=== PATIENT | female | born 1960 | race Caucasian/White ===

== ENCOUNTER 2024-12-26 15:05 | Inpatient (IN) | payer BC ==
[2024-12-26 15:34] LABS: Basophils # (A) 0.04 10*3/uL (0.00-0.10); Basophils % (A) 0.4 %; Eosinophils # (A) 0.03 10*3/uL (0.04-0.35); Eosinophils % (A) 0.3 %; HCT 41.5 % (37.2-46.3); HGB 14.8 g/dL (12.0-15.0); Lymphocytes # (A) 2.19 10*3/uL (0.90-5.00); Lymphocytes % (A) 22.9 %; MCH 33.6 pg (27.0-32.0); MCHC 35.7 g/dL (32.0-37.0); MCV 94.1 fL (80.0-97.0); Mean Platelet Volume 9.6 fL (9.5-12.2); Monocytes % (A) 9.4 %; Neutrophils % (A) 66.8 %; Platelet Count 254 10*3/uL (140-440); RBC 4.41 10*6/uL (4.10-5.20); RDW 15.5 % (11.5-14.5); WBC 9.58 10*3/uL (4.50-10.00)
[2024-12-26 15:44] LABS: Partial Thromboplastin Time 22.5 sec (22.0-30.0); Prothrombin Time 10.6 sec (10.0-12.5)
--- NOTE | 2024-12-26 15:48 | XR ---
EXAMINATION TYPE: XR chest 2V DATE OF EXAM: 12/26/2024 3:32 PM COMPARISON: None. CLINICAL INDICATION: Female, 64 years old with history of Chest Pain: Shortness of breath TECHNIQUE: XR chest 2V views of the chest are obtained. FINDINGS: Scattered senescent parenchymal changes noted. Hyperinflation compatible with COPD. Right hilar mass suspicious for malignancy measuring approximately 5.1 x 4.5 cm. No additional nodule s or masses identified. Appropriate malignancy workup recommended which could be performed as an outp atient. Heart size is stable. Mediastinal structures are stable and grossly unremarkable. No evidence for hilar prominence. Degenerative changes dorsal spine. IMPRESSION: 1. Right hilar mass suspicious for malignancy measuring approximately 5.1 x 4.5 cm. No additional nod ules or masses identified. Appropriate malignancy workup recommended which could be performed as an o utpatient. [facility], , 12/26/2024 3:46 PM
[2024-12-26 15:52] LABS: ALT 22 U/L (4-34); AST 24 U/L (14-36); African American GFR (CKD) >90 (>60 ml/min/1.73 sqM); Albumin 4.6 g/dL (3.5-5.0); Alkaline Phosphatase 84 U/L (38-126); Anion Gap 12 mmol/L; Blood Urea Nitrogen 7 mg/dL (7-17); Calcium 9.6 mg/dL (8.4-10.2); Carbon Dioxide 28 mmol/L (22-30); Chloride 97 mmol/L (98-107); Glucose 96 mg/dL (74-99); Non-African American GFR(CKD) >90 (>60 ml/min/1.73 sqM); Potassium 3.8 mmol/L (3.5-5.1); Sodium 137 mmol/L (137-145); Total Bilirubin 1.5 mg/dL (0.2-1.3); Total Protein 7.5 g/dL (6.3-8.2)
[2024-12-26 16:00] LABS: NT-Pro-B-Type Natriuretic Pept 4860 pg/mL
[2024-12-26 16:08] LABS: Influenza A Not Detected (Not Detectd); Influenza B Not Detected (Not Detectd); RSV Not Detected (Not Detectd)
[2024-12-26] MEDS: DILTIAZEM 125 MG in DEXTROSE 5% IN WATER 100 ML IV SCH (16:59)
[2024-12-26] MEDS: DILTIAZEM 5 MG/ML 5 ML VIAL IVP STA (17:00)
--- NOTE | 2024-12-26 17:08 | CT ---
EXAMINATION TYPE: CT chest angio for PE DATE OF EXAM: 12/26/2024 4:58 PM COMPARISON: None. CLINICAL INDICATION: Female, 64 years old with history of new onset afib, heart failure, lung mass, P t c.o of dizziness with n/v and episodes of QUINCY x 3 months, pt ekg showed A-fib with no hx of, pt rep orts feels like heart is racing, bilat lower leg edema., TECHNIQUE: Axial CT was performed with sagittal and coronal reformats. 3D reconstruction and/or MIP imaging was also performed on a separate workstation. IV CONTRAST: with IV Contrast, patient injected with 100ml mL of Isovue 370. (None if empty) CT DLP: 278.1 mGycm, Automated exposure control for dose reduction was used. FINDINGS: PULMONARY ARTERIES: The pulmonary arteries and their major tributaries are patent. I do not see magen dence for sizable filling defect to suggest pulmonary embolic process. LUNGS: There is a 4.3 x 3.8 x 3.7 cm right hilar mass felt to reflect malignancy until proven otherwi se. 1.5 cm superior segment left lower lobe pulmonary nodule noted as well. Metastatic lesion is not excluded. Mild right lower lobe bronchial wall thickening. Biapical scarring. No consolidative proces s or volume loss. MEDIASTINUM: Thoracic aorta is of normal caliber,however, evaluation is limited given timing of the contrast bolus. If there is concern for thoracic aortic pathology consider CAITLIN. Correlate clinicall y. No evidence for mediastinal mass. No mediastinal lymph nodes greater than 1cm. HEART: Cardiomegaly is demonstrated. No significant coronary artery calcifications. HILAR STRUCTURES: No evidence for mass. No hilar lymph nodes greater than 1 cm. UPPER ABDOMEN: No significant abnormality is seen. IMPRESSION: 1. No evidence for Pulmonary embolism at this time. 2. Right hilar mass felt to reflect malignancy until proven otherwise. Left lower lobe pulmonary lung nodule as discussed. PET/CT and tissue diagnosis recommended. [facility], , 12/26/2024 5:06 PM
--- NOTE | 2024-12-26 18:23 | ED ---
Chest Pain HPI - General Chief Complaint: Chest Pain Stated Complaint: afib Time Seen by Provider: 12/26/24 15:15 Source: patient, EMS Mode of arrival: EMS Limitations: no limitations - History of Present Illness Initial Comments: 64-year-old female who presents to the emergency department reporting cough, shortness of breath and lightheadedness for the past 2 weeks. States that her symptoms have become worse over the past 2 days. Patient feels as if she cannot lay flat to sleep. She has been sitting in a chair. Denies any lower extremity swelling. No history of cardiac disease or heart failure. No history of DVT or PE. No calf pain or swelling. Patient thought that she had a upper respiratory infection however denies any myalgias, fevers, sick contacts. She states her cough has been nonproductive. She went into urgent care today who found that the patient was in A-fib. States that this is a new diagnosis for her. She has no contraindications to heparinization. No history of thyroid disorder. Patient denies any chest pain. No other alleviating, precipitating or modifying factors - Related Data Allergies Allergy/AdvReac Type Severity Reaction Status Date / Time amoxicillin [From Augmentin] Allergy Nausea & Verified 12/26/24 15:18 Vomiting clavulanic acid Allergy Nausea & Verified 12/26/24 15:18 [From Augmentin] Vomiting Review of Systems ROS Statement: Those systems with pertinent positive or pertinent negative responses have been documented in the HPI. ROS Other: All systems not noted in ROS Statement are negative. Past Medical History Past Medical History: Hyperlipidemia History of Any Multi-Drug Resistant Organisms: None Reported Past Surgical History: No Surgical Hx Reported Past Psychological History: No Psychological Hx Reported Smoking Status: Current every day smoker Past Alcohol Use History: Daily Past Drug Use History: None Reported General Exam Limitations: no limitations Course Vital Signs 12/26/24 12/26/24 12/26/24 15:09 15:22 16:59 Temperature 98.5 F Pulse Rate 161 H 173 H Respiratory 22 Rate Blood Pressure 147/117 O2 Sat by Pulse 93 L Oximetry 12/26/24 12/26/24 12/26/24 17:03 17:27 18:03 Temperature Pulse Rate 117 H 118 H 111 H Respiratory 20 20 Rate Blood Pressure 119/66 139/100 O2 Sat by Pulse 93 L Oximetry Chest Pain MDM - MDM Was pt. sent in by a medical professional or institution (MARIKA Correa, CHILD DAYCARE WORKER, urgent care, hospital, or penitentiary...) When possible be specific @ -[No] Did you speak to anyone other than the patient for history (EMS, parent, family, police, friend...)? What history was obtained from this source @ -[No] Did you review nursing and triage notes (agree or disagree)? Why? @ -[I reviewed and agree with nursing and triage notes] Were old charts reviewed (outside hosp., previous admission, EMS record, old EKG, old radiological studies, urgent care reports/EKG's, penitentiary records)? Report findings @ -[No old charts were reviewed] Differential Diagnosis (chest pain, altered mental status, abdominal pain women, abdominal pain men, vaginal bleeding, weakness, fever, dyspnea, syncope, headache, dizziness, GI bleed, back pain, seizure, CVA, palpatations, mental health, musculoskeletal)? @ -[not applicable] EKG interpreted by me (3pts min.). @ -Yes and demonstrates A-fib with a rate of 156. QRS 89. QTc of 367. No acute ST segment elevations or depressions X-rays interpreted by me (1pt min.). @ -[None done] CT interpreted by me (1pt min.). @ -[None done] U/S interpreted by me (1pt. min.). @ -[None done] What testing was considered but not performed or refused? (CT, X-rays, U/S, labs)? Why? @ -[None] What meds were considered but not given or refused? Why? @ -[None] Did you discuss the management of the patient with other professionals (professionals i.e. MARIKA Correa, CHILD DAYCARE WORKER, lab, RT, psych nurse, case management social worker, glass rolling machine operator, teacher, fundraising officer, protective services case worker)? Give summary @ -[No] Was smoking cessation discussed for >3mins.? @ -[No] Was critical care preformed (if so, how long)? @ -[No] Were there social determinants of health that impacted care today? How? (Homelessness, low income, unemployed, alcoholism, drug addiction, transportation, low edu. Level, literacy, decrease access to med. care, skilled nursing, rehab)? @ -[No] Was there de-escalation of care discussed even if they declined (Discuss DNR or withdrawal of care, Hospice)? DNR status @ -[No] What co-morbidities impacted this encounter? (DM, HTN, Smoking, COPD, CAD, Cancer, CVA, ARF, Chemo, Hep., AIDS, mental health diagnosis, sleep apnea, morbid obesity)? @ -[None] Was patient admitted / discharged? Hospital course, mention meds given and route, prescriptions, significant lab abnormalities, going to OR and other pertinent info. @ -[hospital course] Undiagnosed new problem with uncertain prognosis? @ -[No] Drug Therapy requiring intensive monitoring for toxicity (Heparin, Nitro, Insulin, Cardizem)? @ -[No] Were any procedures done? @ -[No] Diagnosis/symptom? @ -[default] Acute, or Chronic, or Acute on Chronic? @ -[default] Uncomplicated (without systemic symptoms) or Complicated (systemic symptoms)? @ -[default] Side effects of treatment? @ -[No] Exacerbation, Progression, or Severe Exacerbation? @ -[No] Poses a threat to life or bodily function? How? (Chest pain, [place], [place], pneumonia, PE, COPD, DKA, ARF, appy, cholecystitis, CVA, Diverticulitis, Homicidal, Suicidal, threat to staff... and all critical care pts) @ -[No] Disposition Clinical Impression: Acute respiratory insufficiency, New onset a-fib, Lung mass, Elevated brain natriuretic peptide (BNP) level Disposition: ADMITTED IP TO THIS [facility] Condition: Serious Is patient prescribed a controlled substance at d/c from ED?: No Referrals: None,Stated [Primary Care Provider] - 1-2 days Time of Disposition: 18:23 Decision to Admit Reason: Admit from EC Decision Date: 12/26/24 Decision Time: 18:23
[2024-12-26] MEDS ORDERED: NALOXONE 0.4 MG/ML 1 ML VIAL IV PRN (18:37)
[2024-12-26] MEDS ORDERED: MONTELUKAST 10 MG TAB PO PRN (20:13)
[2024-12-26] MEDS: NICOTINE 21MG/24HR PATCH TRANSDERM SCH (20:54)
[2024-12-26] MEDS: ATORVASTATIN 20 MG TAB PO SCH (21:53)
[2024-12-26] MEDS: ZOLPIDEM 5 MG TAB PO ONE (22:59)
[2024-12-26] MEDS: ENOXAPARIN 60 MG/0.6 ML SYRINGE SQ SCH (22:59)
[2024-12-27 01:06] LABS: Basophils # (A) 0.04 10*3/uL (0.00-0.10); Basophils % (A) 0.5 %; Eosinophils # (A) 0.03 10*3/uL (0.04-0.35); Eosinophils % (A) 0.4 %; HCT 36.9 % (37.2-46.3); HGB 12.9 g/dL (12.0-15.0); Lymphocytes # (A) 2.14 10*3/uL (0.90-5.00); Lymphocytes % (A) 26.3 %; MCH 33.2 pg (27.0-32.0); MCV 95.1 fL (80.0-97.0); Mean Platelet Volume 9.5 fL (9.5-12.2); Monocytes # (A) 0.71 10*3/uL (0.20-1.00); Monocytes % (A) 8.7 %; Neutrophils % (A) 63.9 %; Platelet Count 228 10*3/uL (140-440); RBC 3.88 10*6/uL (4.10-5.20); RDW 15.7 % (11.5-14.5); WBC 8.14 10*3/uL (4.50-10.00)
[2024-12-27 01:21] LABS: African American GFR (CKD) >90 (>60 ml/min/1.73 sqM); Anion Gap 9 mmol/L; Blood Urea Nitrogen 5 mg/dL (7-17); Calcium 9.1 mg/dL (8.4-10.2); Carbon Dioxide 29 mmol/L (22-30); Chloride 97 mmol/L (98-107); Glucose 99 mg/dL (74-99); Non-African American GFR(CKD) >90 (>60 ml/min/1.73 sqM); Potassium 3.3 mmol/L (3.5-5.1); Sodium 135 mmol/L (137-145)
[2024-12-27] MEDS: METOPROLOL TARTRATE 25 MG TAB PO SCH (07:59)
--- NOTE | 2024-12-27 09:39 | P.CRDCN ---
History of Present Illness History of present illness: HISTORY OF PRESENT ILLNESS: This is a 64-year-old female with a past medical history significant for hypertension. Patient does not follow with a marketing finance manager. We have been asked to see the patient in consultation for atrial fibrillation. Patient examined at the bedside. Patient initially presented to urgent care with a chief complaint of shortness of breath and upper respiratory symptoms. Patient was found to be in A-fib with RVR and was directed to come to the emergency room. Patient was started on IV Cardizem and therapeutic Lovenox. She remains in atrial fibrillation this morning with a heart rate in the 90s. She currently denies any palpitations. Denies chest pain or pressure. She reports mild shortness of breath and a cough. DIAGNOSTICS: - EKG reveals A-fib with RVR. - Chest xray right hilar mass suspicious for malignancy measuring 5.1 x 4.4 cm. No additional nodules or masses identified. -Chest CTA: No evidence for pulmonary embolism. Right hilar mass felt to reflect malignancy until proven otherwise. Left lower lobe pulmonary lung nodule as discussed. - Laboratory data: WBC 8.14. Hemoglobin 12.9. Platelet count 229. Sodium 135. Potassium 3.3. BUN 5. Creatinine 0.56. Troponin negative x 3. proBNP 4860. TSH 1.350. - Current home cardiac medications include simvastatin 40 mg at night. - No previous echocardiogram, stress test, or cardiac catheterization available in EMR for review REVIEW OF SYSTEMS: At the time of my exam: CONSTITUTIONAL: Denies fever or chills. HEENT: Denies blurred vision, vision changes, or eye pain. Denies hemoptysis CARDIOVASCULAR: Denies chest pain. Denies orthopnea. Denies PND. Denies palpitations RESPIRATORY: Reports shortness of breath. GASTROINTESTINAL: Denies abdominal pain. Denies nausea or vomiting. HEMATOLOGIC: Denies bleeding disorders. GENITOURINARY: Denies any blood in urine. SKIN: Denies pruitis. Denies rash. PHYSICAL EXAM: VITAL SIGNS: Reviewed. GENERAL: Well-developed in no acute distress. HEENT: Head is normocephalic. Pupils are equal, round. Sclerae anicteric. Mucous membranes of the mouth are moist. Neck supple. No JVD or thyromegaly LUNGS: Respirations even and unlabored. Lungs essentially clear to auscultation bilaterally. HEART: Irregular rate and rhythm. S1 and S2 heard. ABDOMEN: Soft. Nondistended. Nontender. EXTREMITIES: Normal range of motion. No clubbing or cyanosis. Peripheral pulses intact. No lower extremity edema NEUROLOGIC: Awake and alert. Oriented x 3. ASSESSMENT: Shortness of breath New onset A-fib with RVR New right lung mass Hyperlipidemia Nicotine dependence PLAN: Obtain 2D echo to assess cardiac structure and function TSH checked and within normal limits at 1.350 Begin metoprolol tartrate 25 mg twice a day Discontinue IV Cardizem Continue Lovenox at this time until pulmonary has evaluated patient Continue telemetry monitoring Further recommendations pending patient course Nurse practitioner note has been reviewed by physician. Signing provider agrees with the documented findings, assessment, and plan of care documented by SMOKE TESTER as a scribe. Past Medical History Past Medical History: Hyperlipidemia History of Any Multi-Drug Resistant Organisms: None Reported Past Surgical History: No Surgical Hx Reported Additional Past Surgical History / Comment(s): breast biopsies, colonoscopy Past Anesthesia/Blood Transfusion Reactions: No Reported Reaction Past Psychological History: No Psychological Hx Reported Smoking Status: Current every day smoker Past Alcohol Use History: Daily Past Drug Use History: None Reported Medications and Allergies Home Medications Medication Instructions Recorded Confirmed Type Montelukast [Singulair] 10 mg PO HS PRN 12/26/24 12/26/24 History Simvastatin [Zocor] 40 mg PO HS 12/26/24 12/26/24 History Allergies Allergy/AdvReac Type Severity Reaction Status Date / Time amoxicillin [From Augmentin] Allergy Nausea & Verified 12/26/24 18:54 Vomiting clavulanic acid Allergy Nausea & Verified 12/26/24 18:54 [From Augmentin] Vomiting Physical Exam Vitals: Vital Signs Temp Pulse Pulse Resp BP BP Pulse Ox 12/27/24 04:34 98.2 F 106 H 16 162/82 90 L 12/27/24 02:40 118 H 16 12/26/24 23:00 98.1 F 118 H 16 130/90 93 L 12/26/24 20:58 98.6 F 98 16 154/105 91 L 12/26/24 20:56 118 H 16 12/26/24 18:44 118 H 17 151/99 94 L 12/26/24 18:03 111 H 20 12/26/24 17:27 118 H 20 139/100 93 L 12/26/24 17:03 117 H 119/66 12/26/24 16:59 173 H 12/26/24 15:22 147/117 12/26/24 15:09 98.5 F 161 H 22 93 L Intake and Output 12/26/24 12/27/24 12/27/24 22:59 06:59 14:59 Intake Total 500 102.584 Balance 500 102.584 Intake: Intake, IV Titration 102.584 Amount Diltiazem 125 mg In 102.584 Dextrose 5% in Water 100 ml @ 5 MG/HR 5 mls/hr IV .Q24H [facility] Rx#:[id number] Oral 500 Other: Voiding Method Toilet Toilet # Voids 1 Weight 65.771 kg 64.8 kg Results 12/27/24 00:53 12/27/24 00:23 Cardiac Enzymes 12/26/24 12/26/24 12/26/24 Range/Units 15:24 15:24 20:21 AST 24 (14-36) U/L Troponin I <0.012 0.012 (0.000-0.034) ng/mL 12/27/24 Range/Units 00:23 AST (14-36) U/L Troponin I <0.012 (0.000-0.034) ng/mL Coagulation 12/26/24 Range/Units 15:24 PT 10.6 (10.0-12.5) sec APTT 22.5 (22.0-30.0) sec CBC 12/26/24 12/27/24 Range/Units 15:24 00:53 WBC 9.58 8.14 (4.50-10.00) 10*3/uL RBC 4.41 3.88 L (4.10-5.20) 10*6/uL Hgb 14.8 12.9 (12.0-15.0) g/dL Hct 41.5 36.9 L (37.2-46.3) % Plt Count 254 228 (140-440) 10*3/uL Comprehensive Metabolic Panel 12/26/24 12/27/24 Range/Units 15:24 00:23 Sodium 137 135 L (137-145) mmol/L Potassium 3.8 3.3 L (3.5-5.1) mmol/L Chloride 97 L 97 L (98-107) mmol/L Carbon Dioxide 28 29 (22-30) mmol/L BUN 7 5 L (7-17) mg/dL Creatinine 0.55 0.56 (0.52-1.04) mg/dL Glucose 96 99 (74-99) mg/dL Calcium 9.6 9.1 (8.4-10.2) mg/dL AST 24 (14-36) U/L ALT 22 (4-34) U/L Alkaline Phosphatase 84 (38-126) U/L Total Protein 7.5 (6.3-8.2) g/dL Albumin 4.6 (3.5-5.0) g/dL Current Medications Generic Name Dose Route Start Last Admin Trade Name Freq PRN Reason Stop Dose Admin Atorvastatin Calcium 20 mg 12/26/24 21:00 12/26/24 21:53 Atorvastatin 20 Mg Tab PO 20 mg HS ADDIE Administration Enoxaparin Sodium 60 mg 12/26/24 21:00 12/26/24 22:59 Enoxaparin 60 Mg/0.6 Ml Syringe SQ 60 mg Q12HR ADDIE Administration Diltiazem HCl 125 mg/ Dextrose 125 mls @ 5 mls/hr 12/26/24 16:30 12/27/24 04:46 /Water IV 15 mg/hr .Q24H ADDIE 15 mls/hr Administration Protocol 5 MG/HR Montelukast Sodium 10 mg 12/26/24 20:13 Montelukast 10 Mg Tab PO HS PRN Allergy Symptoms Naloxone HCl 0.2 mg 12/26/24 18:37 Naloxone 0.4 Mg/Ml 1 Ml Vial IV Q2M PRN Opioid Reversal Nicotine 1 patch 12/26/24 20:15 12/26/24 20:54 Nicotine 21mg/24hr Patch TRANSDERM Not Given DAILY ADDIE Intake and Output 12/26/24 12/27/24 12/27/24 22:59 06:59 14:59 Intake Total 500 102.584 Balance 500 102.584 Intake: Intake, IV Titration 102.584 Amount Diltiazem 125 mg In 102.584 Dextrose 5% in Water 100 ml @ 5 MG/HR 5 mls/hr IV .Q24H [facility] Rx#:[id number] Oral 500 Other: Voiding Method Toilet Toilet # Voids 1 Weight 65.771 kg 64.8 kg 12/27/24 00:53 12/27/24 00:23
--- NOTE | 2024-12-27 11:18 | P.HPIM ---
History of Present Illness H&P Date: 12/26/24 Chief Complaint: Chest pressure Pleasant 64-year-old patient, follows in the office with Venu Joseph. Patient was seen in the ER, room E4. Chronic medical condition include COPD, hyperlipidemia. Patient been having chest pressure off and on since October. She is also had episodes of what she calls chest cold. Then yesterday she felt as elephant sitting on the chest. Symptoms with no change with activity. Symptoms are worse with laying down. No radiation. Some shortness of breath. No dizziness no lightheadedness. Decided to come in. Initial troponin in the ER was negative. Patient found in atrial fibrillation with rapid ventricular rate. Put on a Cardizem drip. Review of systems: GEN.: Tired EYES: None HEENT: None NECK: None RESPIRATORY: [As above CARDIOVASCULAR: As above, no edema GASTROINTESTINAL: None GENITOURINARY: None MUSCULOSKELETAL: None LYMPHATICS: None HEMATOLOGICAL: None PSYCHIATRY: None NEUROLOGICAL: None Social history: . Retired from [employer]. Patient smokes about three-quarter pack cigarettes a day for last 40 years. Alcohol socially. Physical examination: VITAL SIGNS: 98.5, 161, 22, 93% room air. 147 x 117 GENERAL: [BMI 23.1, reclining bed awake not in distress. EYES: Pupils equal. Conjunctiva adri l. HEENT: External appearance of nose and ears normal, oral cavity grossly normal. NECK: JVD not raised; masses not palpable. HEART: Heart sounds irregular; no edema. LUNGS: Respiratory rate normal; decreased breath sound. ABDOMEN: Soft, nontender, liver spleen not palpable, no masses palpable. PSYCH: Alert and oriented x3; mood and affect adri l. MUSCULOSKELETAL:No Clubbing/cyanosis;muscles-grossly intact NEUROLOGICAL: Cranial nerves grossly intact; no facial asymmetry, power and sensation grossly intact. LYMPHATICS: No lymph nodes palpable in the axilla and neck INVESTIGATIONS, reviewed in the clinical context: December 26: White count 9.5 globin 14.8 platelets 254 sodium 137 potassium 3.8 creatinine 0.55 Troponin I less than 0.012 proBNP 4860 TSH 1.35 Influenza type A, type B, RSV, SARS-CoV-2: Not detected EKG tracing personally reviewed by me-atrial fibrillation with a rapid ventricular rate. With flutter waves. Rate 156 Chest x-ray film personally reviewed by me-very prominent right hilum with irregular margins CT chest angio for PE: Negative for PE. 4.3 x 3.8 x 3.7 right hilar mass. Similar findings Assessment plan: - New onset atrial fibrillation flutter with a rapid ventricular rate Start an IV Cardizem drip. Subcu Lovenox 60 mg every 12. 2D echo. Cardiology consulted - Right hilar mass 4.3 x 3.68 x 3.7 cm. Pulmonary consulted with review to bronchoscopy for biopsy - COPD in a current smoker DuoNeb. Symbicort. Singulair - Chronic nicotine dependence cigarette smoker Nicotine patch - Hyperlipidemia Zocor - Full code Care was discussed with patient. Consultation to cardiology and pulmonary. Past Medical History Past Medical History: Hyperlipidemia History of Any Multi-Drug Resistant Organisms: None Reported Past Surgical History: No Surgical Hx Reported Past Psychological History: No Psychological Hx Reported Smoking Status: Current every day smoker Past Alcohol Use History: Daily Past Drug Use History: None Reported Medications and Allergies Home Medications Medication Instructions Recorded Confirmed Type Montelukast [Singulair] 10 mg PO HS PRN 12/26/24 12/26/24 History Simvastatin [Zocor] 40 mg PO HS 12/26/24 12/26/24 History Allergies Allergy/AdvReac Type Severity Reaction Status Date / Time amoxicillin [From Augmentin] Allergy Nausea & Verified 12/26/24 18:54 Vomiting clavulanic acid Allergy Nausea & Verified 12/26/24 18:54 [From Augmentin] Vomiting Physical Exam Vitals: Vital Signs Temp Pulse Resp BP Pulse Ox 12/26/24 18:44 118 H 17 151/99 94 L 12/26/24 18:03 111 H 20 12/26/24 17:27 118 H 20 139/100 93 L 12/26/24 17:03 117 H 119/66 12/26/24 16:59 173 H 12/26/24 15:22 147/117 12/26/24 15:09 98.5 F 161 H 22 93 L Intake and Output 12/26/24 12/26/24 12/26/24 06:59 14:59 22:59 Other: Weight 65.771 kg Results CBC & Chem 7: 12/27/24 00:53 12/27/24 00:23 Labs: Abnormal Lab Results - Last 24 Hours (Table) 12/26/24 12/26/24 Range/Units 15:24 15:24 MCH 33.6 H (27.0-32.0) pg Eosinophils # 0.03 L (0.04-0.35) 10*3/uL Chloride 97 L (98-107) mmol/L Total Bilirubin 1.5 H (0.2-1.3) mg/dL
[2024-12-27] MEDS: IPRATROPIUM-ALBUTEROL 3 ML NEB INHALATION SCH (11:46)
[2024-12-27] MEDS ORDERED: ALBUTEROL HFA INHALER INHALATION PRN (11:51)
[2024-12-27] MEDS ORDERED: ALBUTEROL NEBULIZED 2.5 MG/3 ML INHALATION PRN (11:54)
--- NOTE | 2024-12-27 13:21 | P.CNPUL ---
History of Present Illness Consult date: 12/27/24 Requesting physician: Elijah Hwang Reason for consult: other (Lung mass) Chief complaint: Shortness of breath History of present illness: This is a 64-year-old female, 22-emht-jnea smoking history, known history of hypertension, tobacco dependence syndrome, patient presented to the hospital ye sterday with mostly 1 day history of increased shortness of breath, and respiratory congestion. Upon her initial evaluation patient was found to be in atrial fibrillation with RVR. She was started on IV Cardizem and Lovenox. Patient remains in atrial fibrillation, she denies any chest pain, denies any palpitations, denies any fever or chills denies any hemoptysis. Considering her pulmonary symptoms, CT angiogram of the chest was done, and it showed a 4.3 x 3.8 x 3.7 right hilar mass highly suspicious for lung cancer. In addition the patient was found to have a 1.5 cm in the superior segment of the left lower lobe. This is felt most likely metastatic in nature. Considering the findings, this consult was initiated. I saw the patient today, and I explained to her and her that the findings are highly suspicious for bronchogenic carcinoma however at this point the main concern is her atrial fibrillation and RVR, needs to be fully addressed, and could consider workup on outpatient basis including a PET scan, eventually the patient will need to have bronchoscopy and biopsy. Review of Systems CONSTITUTIONAL: Denies fever or chills. Denies any weight loss HEENT: Denies blurred vision, vision changes, or eye pain. Denies hemoptysis CARDIOVASCULAR: As noted in HPI RESPIRATORY: As noted in HPI GASTROINTESTINAL: Denies abdominal pain. Denies nausea or vomiting. HEMATOLOGIC: Denies bleeding disorders. GENITOURINARY: Denies any blood in urine. SKIN: Denies pruitis. Denies rash. Psychiatric: Denies any symptoms of active depression Hematologic: Denies any clotting bleeding or bruising Past Medical History Past Medical History: Hyperlipidemia History of Any Multi-Drug Resistant Organisms: None Reported Past Surgical History: No Surgical Hx Reported Additional Past Surgical History / Comment(s): breast biopsies, colonoscopy Past Anesthesia/Blood Transfusion Reactions: No Reported Reaction Past Psychological History: No Psychological Hx Reported Smoking Status: Current every day smoker Past Alcohol Use History: Daily Past Drug Use History: None Reported Medications and Allergies Home Medications Medication Instructions Recorded Confirmed Type Montelukast [Singulair] 10 mg PO HS PRN 12/26/24 12/26/24 History Simvastatin [Zocor] 40 mg PO HS 12/26/24 12/26/24 History Allergies Allergy/AdvReac Type Severity Reaction Status Date / Time amoxicillin [From Augmentin] Allergy Nausea & Verified 12/26/24 18:54 Vomiting clavulanic acid Allergy Nausea & Verified 12/26/24 18:54 [From Augmentin] Vomiting Physical Exam Vitals: Vital Signs Temp Pulse Pulse Resp BP BP Pulse Ox 12/27/24 11:48 71 16 12/27/24 11:15 98.8 F 69 17 109/69 91 L 12/27/24 07:55 98.9 F 97 17 135/74 91 L 12/27/24 04:34 98.2 F 106 H 16 162/82 90 L 12/27/24 02:40 118 H 16 12/26/24 23:00 98.1 F 118 H 16 130/90 93 L 12/26/24 20:58 98.6 F 98 16 154/105 91 L 12/26/24 20:56 118 H 16 12/26/24 18:44 118 H 17 151/99 94 L 12/26/24 18:03 111 H 20 12/26/24 17:27 118 H 20 139/100 93 L 12/26/24 17:03 117 H 119/66 12/26/24 16:59 173 H 12/26/24 15:22 147/117 12/26/24 15:09 98.5 F 161 H 22 93 L Intake and Output 12/26/24 12/27/24 12/27/24 22:59 06:59 14:59 Intake Total 500 102.584 76.75 Balance 500 102.584 76.75 Intake: Intake, IV Titration 102.584 76.75 Amount Diltiazem 125 mg In 102.584 76.75 Dextrose 5% in Water 100 ml @ 5 MG/HR 5 mls/hr IV .Q24H [facility] Rx#:[id number] Oral 500 Other: Voiding Method Toilet Toilet Toilet # Voids 1 1 Weight 65.771 kg 64.8 kg General: Reveals 64-year-old female pleasant in no distress, at bedside Head: Atraumatic normocephalic Skin: Skin is warm and dry and no rashes or lesions are noted. Eye: Pupils are equal, round and reactive to light, extra-ocular movements are intact; there is normal conjunctiva bilaterally. Ears, nose, mouth and throat: There are moist mucous membranes and no oral lesions. Neck: no cervical lymphadenopathy. No masses. Cardiovascular: Irregular irregular rhythm No murmur, rub or gallop is appreciated. Respiratory: Diminished breath sound bilaterally no crackles rhonchi or wheezes Musculoskeletal: Normal range of motion, no deformities Neurological: Alert oriented x 3 no gross focal deficit Psychiatric: Normal mood, affect and no mental status examination Results - Laboratory Findings CBC and BMP: 12/27/24 00:53 12/27/24 00:23 PT/INR, D-dimer PT 10.6 sec (10.0-12.5) 12/26/24 15:24 INR 1.0 (<1.2) 12/26/24 15:24 Abnormal lab findings: Abnormal Labs 12/26/24 12/26/24 12/27/24 15:24 15:24 00:23 RBC Hct MCH 33.6 H Eosinophils # 0.03 L Sodium 135 L Potassium 3.3 L Chloride 97 L 97 L BUN 5 L Total Bilirubin 1.5 H 12/27/24 00:53 RBC 3.88 L Hct 36.9 L MCH 33.2 H Eosinophils # 0.03 L Sodium Potassium Chloride BUN Total Bilirubin - Diagnostic Findings CT scan - chest: image reviewed (As noted in HPI, patient has right hilar mass and left lower lobe nodule both are suspicious for malignancy) Assessment and Plan Assessment: Impression: Atrial fibrillation with RVR, new onset Incidental finding of right hilar mass and left lower lobe nodule highly suspicious for bronchogenic carcinoma Tobacco dependence syndrome Suspect underlying COPD, severity of which is to be determined on outpatient basis Dyslipidemia Recommendation: Continue present supportive care measures Continue treatment for atrial fibrillation including Cardizem and Lovenox Patient needs outpatient follow-up regarding her lung mass Patient will be seen by Dr. Lerner tomorrow on follow-up, Patient will need outpatient PET scan and outpatient PFT Will continue to follow Time with Patient: Greater than 30
--- NOTE | 2024-12-27 15:06 | P.PN ---
Progress Note - Text Progress Note Date: 12/27/24 Chief Complaint: Chest pressure Pleasant 64-year-old patient, follows in the office with Venu Joseph. Patient was seen in the ER, room E4. Chronic medical condition include COPD, hyperlipidemia. Patient been having chest pressure off and on since October. She is also had episodes of what she calls chest cold. Then yesterday she felt as elephant sitting on the chest. Symptoms with no change with activity. Symptoms are worse with laying down. No radiation. Some shortness of breath. No dizziness no lightheadedness. Decided to come in. Initial troponin in the ER was negative. Patient found in atrial fibrillation with rapid ventricular rate. Put on a Cardizem drip. December 27: Patient is off Cardizem drip. On Lopressor 25 mg twice daily. Subcu Lovenox. Pulmonary decide whether inpatient/outpatient biopsy. Discussed with patient . Increase activity. Remains in A-fib. Rate controlled Active Medications Albuterol Sulfate (Albuterol Nebulized 2.5 Mg/3 Ml) 2.5 mg INHALATION RT-QID PRN PRN Reason: Shortness Of Breath Or Wheezing Atorvastatin Calcium (Atorvastatin 20 Mg Tab) 20 mg PO HS [facility] Last Admin: 12/26/24 21:53 Dose: 20 mg Budesonide/Formoterol Fumarate (Symbicort 160-4.5 Mcg Inhaler) 2 puff INHALATION RT-BID [facility] Enoxaparin Sodium (Enoxaparin 60 Mg/0.6 Ml Syringe) 60 mg SQ Q12HR [facility] Last Admin: 12/27/24 07:59 Dose: 60 mg Metoprolol Tartrate (Metoprolol Tartrate 25 Mg Tab) 25 mg PO BID [facility] Last Admin: 12/27/24 07:59 Dose: 25 mg Montelukast Sodium (Montelukast 10 Mg Tab) 10 mg PO HS PRN PRN Reason: Allergy Symptoms Naloxone HCl (Naloxone 0.4 Mg/Ml 1 Ml Vial) 0.2 mg IV Q2M PRN PRN Reason: Opioid Reversal Nicotine (Nicotine 21mg/24hr Patch) 1 patch TRANSDERM DAILY [facility] Last Admin: 12/27/24 07:55 Dose: Not Given Social history: . Retired from [employer]. Patient smokes about three-quarter pack cigarettes a day for last 40 years. Alcohol socially. Physical examination: VITAL SIGNS: 98.8, 69, 17, 109 x 69, 91% room air GENERAL: [BMI 23.1, sitting up, comfortable EYES: Pupils equal. Conjunctiva adri l. HEENT: External appearance of nose and ears normal, oral cavity grossly normal. NECK: JVD not raised; masses not palpable. HEART: Heart sounds irregular; no edema. LUNGS: Respiratory rate normal; decreased breath sound. ABDOMEN: Soft, nontender, liver spleen not palpable, no masses palpable. PSYCH: Alert and oriented x3; mood and affect adri l. INVESTIGATIONS, reviewed in the clinical context: December 27: Hemoglobin 12.9 platelets 228 potassium 3.3 creatinine 0.5 December 26: White count 9.5 globin 14.8 platelets 254 sodium 137 potassium 3.8 creatinine 0.55 Troponin I less than 0.012 proBNP 4860 TSH 1.35 Influenza type A, type B, RSV, SARS-CoV-2: Not detected EKG tracing personally reviewed by me-atrial fibrillation with a rapid ventricular rate. With flutter waves. Rate 156 Chest x-ray film personally reviewed by me-very prominent right hilum with irregular margins CT chest angio for PE: Negative for PE. 4.3 x 3.8 x 3.7 right hilar mass. Similar findings Assessment plan: - New onset atrial fibrillation flutter with a rapid ventricular rate: Now controlled Initially on IV Cardizem drip. Subcu Lovenox 60 mg every 12. Lopressor 25 twice daily. Pending 2D echo - Right hilar mass 4.3 x 3.68 x 3.7 cm. Pulmonary following. Further workup plan per them - COPD in a current smoker DuoNeb. Symbicort. Singulair - Chronic nicotine dependence cigarette smoker Nicotine patch - Hyperlipidemia Zocor - Full code Discussed with patient and Past Medical History Past Medical History: Hyperlipidemia History of Any Multi-Drug Resistant Organisms: None Reported Past Surgical History: No Surgical Hx Reported Past Psychological History: No Psychological Hx Reported Smoking Status: Current every day smoker Past Alcohol Use History: Daily Past Drug Use History: None Reported
[2024-12-27] MEDS: POTASSIUM CHLORIDE ER 20 MEQ TAB.ER PO STA (16:19)
[2024-12-27] MEDS: SYMBICORT 160-4.5 MCG INHALER INHALATION SCH (22:01)
[2024-12-27] MEDS: ONDANSETRON 4 MG/2 ML VIAL IVP PRN (23:40)
[2024-12-27] MEDS: ZOLPIDEM 5 MG TAB PO PRN (23:40)
[2024-12-28] MEDS: METOPROLOL SUCCINATE (ER) 50 MG TAB.ER.24H PO SCH (09:39)
--- NOTE | 2024-12-28 11:44 | CA ---
Transthoracic Echo Report Name: Marsha Marinelli Age: 64 Gender: F : 1960 Exam Date: 12/28/2024 08:40 Exam Location: [facility] Ht (in): 66 Wt (lb): 142 Ordering Physician: Sabrina Mckeon Attending/Referring Phys: [id number], Mike Extension Division Director Janice Ma, XI Procedure CPT: Indications: LV function, new onset A-fib, lung mass, sob Cardiac Hx: Technical Quality: Fair Contrast 1: Definity Total Dose (mL): 2 Contrast 2: Total Dose (mL): MEASUREMENTS (Male / Female) Normal Values 2D ECHO LV Diastolic Diameter PLAX 5.0 cm 4.2 - 5.9 / 3.9 - 5.3 cm LV Systolic Diameter PLAX 4.0 cm IVS Diastolic Thickness 1.1 cm 0.6 - 1.0 / 0.6 - 0.9 cm LVPW Diastolic Thickness 1.1 cm 0.6 - 1.0 / 0.6 - 0.9 cm LV Relative Wall Thickness 0.4 RV Internal Dim ED PLAX 3.6 cm LVOT Diameter 2.2 cm Aortic Root Diameter 2.7 cm LA Systolic Diameter LX 3.9 cm 3.0 - 4.0 / 2.7 - 3.8 cm LV Diastolic Volume MOD BP 137.9 cm??? 67 - 155 / 56 - 104 cm??? LV Systolic Volume MOD BP 81.9 cm??? 22 - 58 / 19 - 49 cm??? LV Ejection Fraction MOD BP 40.6 % >= 55 % LV Cardiac Index MOD BP 3128.8 cm???/min???m??? LV Diastolic Volume MOD 4C 141.8 cm??? LV Systolic Volume MOD 4C 81.6 cm??? LV Ejection Fraction MOD 4C 42.4 % LV Cardiac Index MOD 4C 3362.4 cm???/min???m??? LV Diastolic Length 4C 8.5 cm LV Systolic Length 4C 7.8 cm LV Diastolic Volume MOD 2C 136.6 cm??? LV Systolic Volume MOD 2C 80.9 cm??? LV Ejection Fraction MOD 2C 40.8 % LV Cardiac Index MOD 2C 3112.1 cm???/min???m??? LV Diastolic Length 2C 8.6 cm LV Systolic Length 2C 7.5 cm LA Volume 96.5 cm??? 18 - 58 / 22 - 52 cm??? LA Volume Index 55.6 cm???/m??? 16 - 28 cm???/m??? DOPPLER MV Peak Velocity 109.1 cm/s MV Peak Gradient 4.8 mmHg MV Mean Velocity 61.4 cm/s MV Mean Gradient 1.8 mmHg MV Velocity Time Integral 21.8 cm MV Area PHT 2.4 cm??? MR Peak Velocity 517.9 cm/s MR Peak Gradient 107.3 mmHg TR Peak Velocity 208.6 cm/s TR Peak Gradient 17.4 mmHg Right Atrial Pressure 15.0 mmHg Pulmonary Artery Systolic Pressu 32.4 mmHg Right Ventricular Systolic Press 32.4 mmHg FINDINGS Left Ventricle Left ventricular ejection fraction is estimated at 30-35%. Mildly increased septal wall thickness. Mildly increased posterior wall thickness. Severely reduced global left ventricular systolic function. Right Ventricle Normal right ventricular size and function. Right ventricular systolic pressure within normal limits. Right Atrium Moderate right atrial dilatation. Left Atrium Mildly increased left atrial diameter. Severely increased left atrial volume. Mildly increased left atrial area. Mitral Valve Mitral valve thickened. No mitral stenosis. Moderate to severe mitral regurgitation. Aortic Valve Trileaflet aortic valve. No aortic stenosis. No aortic regurgitation. Tricuspid Valve Structurally normal tricuspid valve. No tricuspid stenosis. Mild tricuspid regurgitation. Pulmonic Valve Structurally normal pulmonic valve. No pulmonic stenosis. Trace pulmonic regurgitation. Pericardium No pericardial effusion. Aorta Normal size aortic root and proximal ascending aorta. CONCLUSIONS Left ventricle size is at upper limits of normal. There is global decrease in contractility estimate ejection fraction of 30%. There is moderate to severe mitral regurgitation. Significant dilatation of left atrium and also of right atrium. Mitral annular calcification. No significant tricuspid regurgitation. No pericardial effusion Previewed by: Dr. Sherie Mauro MD (Electronically Signed) Final Date: 28 Dec 2024 11:43
--- NOTE | 2024-12-28 12:40 | P.PN ---
Subjective Progress Note Date: 12/28/24 Principal diagnosis: Shortness of breath. This is a 64-year-old female, 52-oiir-hpdt smoking history, known history of hypertension, tobacco dependence syndrome, patient presented to the hospital yesterday with mostly 1 day history of increased shortness of breath, and respiratory congestion. Upon her initial evaluation patient was found to be in atrial fibrillation with RVR. She was started on IV Cardizem and Lovenox. Patient remains in atrial fibrillation, she denies any chest pain, denies any palpitations, denies any fever or chills denies any hemoptysis. Considering her pulmonary symptoms, CT angiogram of the chest was done, and it showed a 4.3 x 3.8 x 3.7 right hilar mass highly suspicious for lung cancer. In addition the patient was found to have a 1.5 cm in the superior segment of the left lower lobe. This is felt most likely metastatic in nature. Considering the findings, this consult was initiated. I saw the patient today, and I explained to her and her that the findings are highly suspicious for bronchogenic carcinoma however at this point the main concern is her atrial fibrillation and RVR, needs to be fully addressed, and could consider workup on outpatient basis including a PET scan, eventually the patient will need to have bronchoscopy and biopsy. Progress note dated December 28, 2024. 64-year-old patient seen today in room 361. She is resting comfortably in bed. Her is in the room with her. The patient is currently on room air. She is not receiving any IV fluids. The patient was admitted with a diagnosis of increasing shortness of breath. She does have a history of hypertension, tobacco dependence syndrome, and probable COPD. She was also found to have atrial fibrillation with RVR. In addition, CT scan of the chest revealed a relatively large right hilar mass, suspicious for lung cancer. In addition, she had a 1.5 cm lesion in the superior segment of the left lower lobe. The patient is scheduled to have bronchoscopy tomorrow. Will do it with general anesthesia and fluoroscopy. Additional recommendations and suggestions are forthcoming. No new laboratory data today. Objective - Vital Signs Vital signs: Vital Signs Temp 98.3 F 12/28/24 12:00 Pulse 88 12/28/24 12:00 Resp 14 12/28/24 12:00 BP 116/96 12/28/24 12:00 Pulse Ox 90 L 12/28/24 12:00 FiO2 Intake & Output 12/27/24 12/28/24 12/28/24 18:59 06:59 18:59 Intake Total 86.75 20 490 Balance 86.75 20 490 Weight 66.5 kg Intake: IV 10 20 10 Invasive Line 1 10 20 10 Intake, IV Titration 76.75 Amount Diltiazem 125 mg In 76.75 Dextrose 5% in Water 100 ml @ 5 MG/HR 5 mls/hr IV .Q24H [facility] Rx#:[id number] Oral 480 Other: Voiding Method Toilet Toilet Toilet # Voids 1 2 - Exam No acute distress, oriented 3. HEENT examination is grossly unremarkable. Mucous membranes are moist. No oral lesions. Neck supple. Full range of motion. No adenopathy thyromegaly or neck vein distention. Cardiovascular examination reveals an irregular rhythm and rate. S1-S2 normal. No S3 or S4. No discernible murmur noted. Lungs reveal clear breath sounds. Breath sounds are diminished bilaterally. No adventitious lung sounds including wheezes rhonchi or crackles. Abdomen soft bowel sounds are heard. No masses or tenderness. Extremities are intact. No cyanosis clubbing or edema. Skin is without rash or lesion. Neurologic examination is brief but nonfocal. - Labs CBC & Chem 7: 12/27/24 00:53 12/27/24 00:23 Assessment and Plan Assessment: Acute atrial fibrillation with rapid ventricular response. Probable underlying COPD with COPD exacerbation. Large right hilar mass, suspicious for bronchogenic carcinoma. Left lower lobe pulmonary nodule, suspicious for bronchogenic carcinoma. Hyperlipidemia. Tobacco dependence syndrome. Plan: Plan dated December 28, 2024. The patient is going to be scheduled for bronchoscopy, with general anesthesia tomorrow. Will use fluoroscopy as well if necessary. Her major lesion is in the right hilar area, and we may actually run into it, during bronchoscopy. Labs, x-rays, medications are reviewed. The patient is n.p.o. after midnight. Consent on the chart will be placed. Labs, x-rays, medications are reviewed. Prognosis is guarded. Dictation was produced using [employer] software. Please excuse any grammatical, word or spelling errors. Time with Patient: Less than 30
--- NOTE | 2024-12-28 14:28 | P.PN ---
Subjective Progress Note Date: 12/28/24 HISTORY OF PRESENT ILLNESS: This is a 64-year-old female with a past medical history significant for hy pertension. Patient does not follow with a grab setter. We have been asked to see the patient in consultation for atrial fibrillation. Patient examined at the bedside. Patient initially presented to urgent care with a chief complaint of shortness of breath and upper respiratory symptoms. Patient was found to be in A-fib with RVR and was directed to come to the emergency room. Patient was started on IV Cardizem and therapeutic Lovenox. She remains in atrial fibrillation this morning with a heart rate in the 90s. She currently denies any palpitations. Denies chest pain or pressure. She reports mild shortness of breath and a cough. DIAGNOSTICS: - EKG reveals A-fib with RVR. - Chest xray right hilar mass suspicious for malignancy measuring 5.1 x 4.4 cm. No additional nodules or masses identified. -Chest CTA: No evidence for pulmonary embolism. Right hilar mass felt to reflect malignancy until proven otherwise. Left lower lobe pulmonary lung nodule as discussed. - Laboratory data: WBC 8.14. Hemoglobin 12.9. Platelet count 229. Sodium 135. Potassium 3.3. BUN 5. Creatinine 0.56. Troponin negative x 3. proBNP 4860. TSH 1.350. - Current home cardiac medications include simvastatin 40 mg at night. - No previous echocardiogram, stress test, or cardiac catheterization available in EMR for review 12/28 Patient seen and examined. Patient is currently in atrial fibrillation rate controlled. Is unknown how long patient has been in atrial fibrillation. She does have a low EF which we attribute to tachycardia. Patient has not been started on oral anticoagulation as we are waiting for final decision with pulmonary medicine. Patient denies chest pain. It is believed the patient started with symptoms in October with chest pressure. She was treated for sinus infection but was not any better but she states she has felt like there is an elephant on her chest which she thought was related to a panic attack and she was shallow breathing. No symptoms at this time. Blood pressure 116/96, heart rate 88, pulse ox 90% on room air. Echocardiogram reveals EF 30%, moderate to severe mitral regurgitation. PHYSICAL EXAM: VITAL SIGNS: Reviewed. GENERAL: Well-developed in no acute distress. HEENT: Head is normocephalic. Pupils are equal, round. Sclerae anicteric. Mucous membranes of the mouth are moist. Neck supple. No JVD or thyromegaly LUNGS: Respirations even and unlabored. Lungs essentially clear to auscultation bilaterally. HEART: Irregular rate and rhythm. S1 and S2 heard. ABDOMEN: Soft. Nondistended. Nontender. EXTREMITIES: Normal range of motion. No clubbing or cyanosis. Peripheral pulses intact. No lower extremity edema NEUROLOGIC: Awake and alert. Oriented x 3. ASSESSMENT: Shortness of breath New onset paroxysmal A-fib with RVR, currently rate controlled Cardiomyopathy, most likely nonischemic due to tachycardia New right lung mass Hyperlipidemia Nicotine dependence PLAN: TSH checked and within normal limits at 1.350 Continue metoprolol tartrate 25 mg twice a day Continue Lovenox at this time until pulmonary has evaluated patient today Continue telemetry monitoring Further recommendations pending patient course Nurse practitioner note has been reviewed by physician. Signing provider agrees with the documented findings, assessment, and plan of care documented by DIRECTOR OF RETAIL OPERATIONS as a scribe. Objective - Vital Signs Vital signs: Vital Signs Temp 98.7 F 12/28/24 07:56 Pulse 80 12/28/24 07:56 Resp 16 12/28/24 07:56 BP 119/71 12/28/24 07:56 Pulse Ox 90 L 12/28/24 07:56 FiO2 Intake & Output 12/27/24 12/28/24 12/28/24 18:59 06:59 18:59 Intake Total 86.75 20 240 Balance 86.75 20 240 Weight 66.5 kg Intake: IV 10 20 Invasive Line 1 10 20 Intake, IV Titration 76.75 Amount Diltiazem 125 mg In 76.75 Dextrose 5% in Water 100 ml @ 5 MG/HR 5 mls/hr IV .Q24H [facility] Rx#:[id number] Oral 240 Other: Voiding Method Toilet Toilet # Voids 1 2 - Labs CBC & Chem 7: 12/27/24 00:53 12/27/24 00:23
--- NOTE | 2024-12-28 21:29 | P.PN ---
Progress Note - Text Progress Note Date: 12/28/24 Chief Complaint: Chest pressure Pleasant 64-year-old patient, follows in the office with Venu Joseph. Patient was seen in the ER, room E4. Chronic medical condition include COPD, hyperlipidemia. Patient been having chest pressure off and on since October. She is also had episodes of what she calls chest cold. Then yesterday she felt as elephant sitting on the chest. Symptoms with no change with activity. Symptoms are worse with laying down. No radiation. Some shortness of breath. No dizziness no lightheadedness. Decided to come in. Initial troponin in the ER was negative. Patient found in atrial fibrillation with rapid ventricular rate. Put on a Cardizem drip. December 27: Patient is off Cardizem drip. On Lopressor 25 mg twice daily. Subcu Lovenox. Pulmonary decide whether inpatient/outpatient biopsy. Discussed with patient . Increase activity. Remains in A-fib. Rate controlled December 28: Patient seen this morning. Off Cardizem drip. Remains A-fib. Rate controlled. On Toprol-XL. Patient being scheduled for bronchoscopy tomorrow with Dr. ROCHA. She had with the patient has been results of echocardiogram. Cardiology following. Lovenox discontinued review of pending bronchoscopy which may require biopsy. Active Medications Albuterol Sulfate (Albuterol Nebulized 2.5 Mg/3 Ml) 2.5 mg INHALATION RT-QID PRN PRN Reason: Shortness Of Breath Or Wheezing Atorvastatin Calcium (Atorvastatin 20 Mg Tab) 20 mg PO HS [facility] Last Admin: 12/28/24 20:40 Dose: 20 mg Budesonide/Formoterol Fumarate (Symbicort 160-4.5 Mcg Inhaler) 2 puff INHALATION RT-BID [facility] Last Admin: 12/28/24 09:46 Dose: 2 puff Metoprolol Succinate (Metoprolol Succinate (Er) 50 Mg Tab.Er.24h) 50 mg PO DAILY [facility] Last Admin: 12/28/24 09:39 Dose: 50 mg Montelukast Sodium (Montelukast 10 Mg Tab) 10 mg PO HS PRN PRN Reason: Allergy Symptoms Naloxone HCl (Naloxone 0.4 Mg/Ml 1 Ml Vial) 0.2 mg IV Q2M PRN PRN Reason: Opioid Reversal Nicotine (Nicotine 21mg/24hr Patch) 1 patch TRANSDERM DAILY [facility] Last Admin: 12/28/24 10:13 Dose: Not Given Ondansetron HCl (Ondansetron 4 Mg/2 Ml Vial) 4 mg IVP Q6HR PRN PRN Reason: Nausea And Vomiting Last Admin: 12/27/24 23:40 Dose: 4 mg Zolpidem Tartrate (Zolpidem 5 Mg Tab) 5 mg PO HS PRN PRN Reason: Insomnia Last Admin: 12/27/24 23:40 Dose: 5 mg Social history: . Retired from [employer]. Patient smokes about three-quarter pack cigarettes a day for last 40 years. Alcohol socially. Physical examination: VITAL SIGNS: 98.3, 88, 14, 116 x 96, 90% room air GENERAL: Sitting on cot, comfortable EYES: Pupils equal. Conjunctiva adri l. HEENT: External appearance of nose and ears normal, oral cavity grossly normal. NECK: JVD not raised; masses not palpable. HEART: Heart sounds irregular; no edema. LUNGS: Respiratory rate normal; decreased breath sound. ABDOMEN: Soft, nontender, liver spleen not palpable, no masses palpable. PSYCH: Alert and oriented x3; mood and affect adri l. INVESTIGATIONS, reviewed in the clinical context: 2D echo: EF 30%. Moderate to severe MR. December 4: Hemoglobin 12.9 platelets 228 potassium 3.3 creatinine 0.5 December 26: White count 9.5 globin 14.8 platelets 254 sodium 137 potassium 3.8 cr eatinine 0.55 Troponin I less than 0.012 proBNP 4860 TSH 1.35 Influenza type A, type B, RSV, SARS-CoV-2: Not detected EKG tracing personally reviewed by me-atrial fibrillation with a rapid ventricular rate. With flutter waves. Rate 156 Chest x-ray film personally reviewed by me-very prominent right hilum with irregular margins CT chest angio for PE: Negative for PE. 4.3 x 3.8 x 3.7 right hilar mass. Similar findings Assessment plan: - New onset atrial fibrillation flutter with a rapid ventricular rate: Now controlled Initially on IV Cardizem drip. Subcu Lovenox 60 mg every 12-now held. Lopressor 25 twice daily. - Cardiomyopathy with a EF of 30%. Possibly related to uncontrolled A-fib. Will need to rule out underlying ischemia. Being followed by cardiology. - Moderate to severe mitral regurgitation - Right hilar mass 4.3 x 3.68 x 3.[address] ROCHA from pulmonary. For bronchoscopy tomorrow with review to biopsy. - COPD in a current smoker DuoNeb. Symbicort. Singulair - Chronic nicotine dependence cigarette smoker Nicotine patch - Hyperlipidemia Zocor - Full code Discussed with the patient and . For bronchoscopy tomorrow. Past Medical History Past Medical History: Hyperlipidemia History of Any Multi-Drug Resistant Organisms: None Reported Past Surgical History: No Surgical Hx Reported Past Psychological History: No Psychological Hx Reported Smoking Status: Current every day smoker Past Alcohol Use History: Daily Past Drug Use History: None Reported
[2024-12-29 07:19] LABS: African American GFR (CKD) >90 (>60 ml/min/1.73 sqM); Anion Gap 3 mmol/L; Blood Urea Nitrogen 10 mg/dL (7-17); Calcium 8.8 mg/dL (8.4-10.2); Carbon Dioxide 32 mmol/L (22-30); Chloride 99 mmol/L (98-107); Glucose 101 mg/dL (74-99); Non-African American GFR(CKD) >90 (>60 ml/min/1.73 sqM); Sodium 134 mmol/L (137-145)
--- NOTE | 2024-12-29 11:04 | P.PN ---
Subjective Progress Note Date: 12/29/24 Principal diagnosis: Shortness of breath. This is a 64-year-old female, [id number] smoking history, known history of hypertension, tobacco dependence syndrome, patient presented to the hospital yesterday with mostly 1 day history of increased shortness of breath, and respiratory congestion. Upon her initial evaluation patient was found to be in atrial fibrillation with RVR. She was started on IV Cardizem and Lovenox. Patient remains in atrial fibrillation, she denies any chest pain, denies any palpitations, denies any fever or chills denies any hemoptysis. Considering her pulmonary symptoms, CT angiogram of the chest was done, and it showed a 4.3 x 3.8 x 3.7 right hilar mass highly suspicious for lung cancer. In addition the patient was found to have a 1.5 cm in the superior segment of the left lower lobe. This is felt most likely metastatic in nature. Considering the findings, this consult was initiated. I saw the patient today, and I explained to her and her that the findings are highly suspicious for bronchogenic carcinoma however at this point the main concern is her atrial fibrillation and RVR, needs to be fully addressed, and could consider workup on outpatient basis including a PET scan, eventually the patient will need to have bronchoscopy and biopsy. Progress note dated December 28, 2024. 64-year-old patient seen today in room 361. She is resting comfortably in bed. Her is in the room with her. The patient is currently on room air. She is not receiving any IV fluids. The patient was admitted with a diagnosis of increasing shortness of breath. She does have a history of hypertension, tobacco dependence syndrome, and probable COPD. She was also found to have atrial fibrillation with RVR. In addition, CT scan of the chest revealed a relatively large right hilar mass, suspicious for lung cancer. In addition, she had a 1.5 cm lesion in the superior segment of the left lower lobe. The patient is scheduled to have bronchoscopy tomorrow. Will do it with general anesthesia and fluoroscopy. Additional recommendations and suggestions are forthcoming. No new laboratory data today. Progress note dated December 29, 2024. 64-year-old female seen today in room 361. The patient appears to have a right hilar mass on CT scan. The patient will undergo bronchoscopy today. Additional recommendations and suggestions are forthcoming. She is resting comfortably in bed. in the room. She is currently on room air. She is not receiving any IV fluids. Laboratory data today includes a sodium 134, potassium 4, chloride 99, CO2 32, BUN 10, and creatinine 0.72. Glucose is 101. Calcium is 8.8. The patient had an uneventful night. Objective - Vital Signs Vital signs: Vital Signs Temp 98.6 F 12/29/24 07:55 Pulse 83 12/29/24 07:55 Resp 17 12/29/24 07:55 BP 129/81 12/29/24 07:55 Pulse Ox 90 L 12/29/24 07:55 FiO2 Intake & Output 12/28/24 12/29/24 12/29/24 18:59 06:59 18:59 Intake Total 740 20 10 Balance 740 20 10 Weight 67 kg Intake: IV 20 20 10 Invasive Line 1 20 20 10 Oral 720 Other: Voiding Method Toilet Toilet Toilet # Voids 5 1 - Exam No acute distress, oriented 3. HEENT examination is grossly unremarkable. Mucous membranes are moist. No oral lesions. Neck supple. Full range of motion. No adenopathy thyromegaly or neck vein distention. Cardiovascular examination reveals an irregular rhythm and rate. S1-S2 normal. No S3 or S4. No discernible murmur noted. Lungs reveal clear breath sounds. Breath sounds are diminished bilaterally. No adventitious lung sounds including wheezes rhonchi or crackles. Abdomen soft bowel sounds are heard. No masses or tenderness. Extremities are intact. No cyanosis clubbing or edema. Skin is without rash or lesion. Neurologic examination is brief but nonfocal. - Labs CBC & Chem 7: 12/27/24 00:53 12/29/24 06:47 Labs: Abnormal Lab Results - Last 24 Hours (Table) 12/29/24 Range/Units 06:47 Sodium 134 L (137-145) mmol/L Carbon Dioxide 32 H (22-30) mmol/L Glucose 101 H (74-99) mg/dL Assessment and Plan Assessment: Acute atrial fibrillation with rapid ventricular response. Probable underlying COPD with COPD exacerbation. Large right hilar mass, suspicious for bronchogenic carcinoma. Left lower lobe pulmonary nodule, suspicious for bronchogenic carcinoma. Hyperlipidemia. Tobacco dependence syndrome. Plan: Plan dated December 28, 2024. The patient is going to be scheduled for bronchoscopy, with general anesthesia tomorrow. Will use fluoroscopy as well if necessary. Her major lesion is in the right hilar area, and we may actually run into it, during bronchoscopy. Labs, x-rays, medications are reviewed. The patient is n.p.o. after midnight. Consent on the chart will be placed. Labs, x-rays, medications are reviewed. Prognosis is guarded. Dictation was produced using [employer] software. Please excuse any grammatical, word or spelling errors. Plan dated December 29, 2024. The patient is scheduled for bronchoscopy today, under general anesthesia. CT scan revealed a right hilar mass. Labs, x-rays, and all medications are reviewed. We will continue to follow make recommendations along the way. Prognosis is certainly guarded. Dictation was produced using [employer] software. Please excuse any grammatical, word or spelling errors. Time with Patient: Less than 30
[2024-12-29] MEDS: LACTATED RINGERS 1,000 ML BAG IV STA (12:07)
[2024-12-29] MEDS: IV FLUID CONTINUATION 1,000 ML IV ONE (12:07)
[2024-12-29] MEDS ORDERED: LIDOCAINE 1% INJ 10MG/ML (20 ML MDV) ONE (12:44)
[2024-12-29] MEDS ORDERED: PROPOFOL 10 MG/ML 20 ML VIAL IV ONE (12:44)
[2024-12-29] MEDS ORDERED: fentaNYL (PF) 50 MCG/ML 2 ML AMP ONE (12:44)
[2024-12-29] MEDS ORDERED: SUCCINYLCHOLINE CHLORIDE 200 MG/10 ML VIAL IV ONE (12:44)
[2024-12-29] MEDS ORDERED: LIDOCAINE 1% (10MG/ML) FOR IV START INTRADERMA PRN (13:11)
--- NOTE | 2024-12-29 13:17 | P.PN ---
Subjective Progress Note Date: 12/29/24 HISTORY OF PRESENT ILLNESS: This is a 64-year-old female with a past medical history significant for hy pertension. Patient does not follow with a administrative assistant front desk. We have been asked to see the patient in consultation for atrial fibrillation. Patient examined at the bedside. Patient initially presented to urgent care with a chief complaint of shortness of breath and upper respiratory symptoms. Patient was found to be in A-fib with RVR and was directed to come to the emergency room. Patient was started on IV Cardizem and therapeutic Lovenox. She remains in atrial fibrillation this morning with a heart rate in the 90s. She currently denies any palpitations. Denies chest pain or pressure. She reports mild shortness of breath and a cough. DIAGNOSTICS: - EKG reveals A-fib with RVR. - Chest xray right hilar mass suspicious for malignancy measuring 5.1 x 4.4 cm. No additional nodules or masses identified. -Chest CTA: No evidence for pulmonary embolism. Right hilar mass felt to reflect malignancy until proven otherwise. Left lower lobe pulmonary lung nodule as discussed. - Laboratory data: WBC 8.14. Hemoglobin 12.9. Platelet count 229. Sodium 135. Potassium 3.3. BUN 5. Creatinine 0.56. Troponin negative x 3. proBNP 4860. TSH 1.350. - Current home cardiac medications include simvastatin 40 mg at night. - No previous echocardiogram, stress test, or cardiac catheterization available in EMR for review 12/28 Patient seen and examined. Patient is currently in atrial fibrillation rate controlled. Is unknown how long patient has been in atrial fibrillation. She does have a low EF which we attribute to tachycardia. Patient has not been started on oral anticoagulation as we are waiting for final decision with pulmonary medicine. Patient denies chest pain. It is believed the patient started with symptoms in October with chest pressure. She was treated for sinus infection but was not any better but she states she has felt like there is an elephant on her chest which she thought was related to a panic attack and she was shallow breathing. No symptoms at this time. Blood pressure 116/96, heart rate 88, pulse ox 90% on room air. Echocardiogram reveals EF 30%, moderate to severe mitral regurgitation. 12/29 Patient seen and examined. Heart rate is running in the 80s and 90s in atrial fibrillation. Blood pressure 129/81, pulse ox 90% on room air. Patient is scheduled for bronchoscopy with pulmonary medicine today. PHYSICAL EXAM: VITAL SIGNS: Reviewed. GENERAL: Well-developed in no acute distress. HEENT: Head is normocephalic. Pupils are equal, round. Sclerae anicteric. Mucous membranes of the mouth are moist. Neck supple. No JVD or thyromegaly LUNGS: Respirations even and unlabored. Lungs essentially clear to auscultation bilaterally. HEART: Irregular rate and rhythm. S1 and S2 heard. ABDOMEN: Soft. Nondistended. Nontender. EXTREMITIES: Normal range of motion. No clubbing or cyanosis. Peripheral pulses intact. No lower extremity edema NEUROLOGIC: Awake and alert. Oriented x 3. ASSESSMENT: Shortness of breath New onset paroxysmal A-fib with RVR, currently rate controlled Cardiomyopathy, most likely nonischemic due to tachycardia New right lung mass Hyperlipidemia Nicotine dependence PLAN: TSH checked and within normal limits at 1.350 Transition metoprolol tartrate to succinate 50 mg daily Patient will need to be started on anticoagulation following bronchoscopy No further cardiac workup at this time Cardiology will sign off this case and follow on an as-needed basis. Please reconsult for any new concerns. Patient may follow-up in the office in one to 2 weeks. Nurse practitioner note has been reviewed by physician. Signing provider agrees with the documented findings, assessment, and plan of care documented by FORMULATION TECHNICIAN as a scribe. Objective - Vital Signs Vital signs: Vital Signs Temp 98.6 F 12/29/24 07:55 Pulse 83 12/29/24 07:55 Resp 17 12/29/24 07:55 BP 129/81 12/29/24 07:55 Pulse Ox 90 L 12/29/24 07:55 FiO2 Intake & Output 12/28/24 12/29/24 12/29/24 18:59 06:59 18:59 Intake Total 740 20 10 Balance 740 20 10 Weight 67 kg Intake: IV 20 20 10 Invasive Line 1 20 20 10 Oral 720 Other: Voiding Method Toilet Toilet # Voids 5 1 - Labs CBC & Chem 7: 12/27/24 00:53 12/29/24 06:47 Labs: Abnormal Lab Results - Last 24 Hours (Table) 12/29/24 Range/Units 06:47 Sodium 134 L (137-145) mmol/L Carbon Dioxide 32 H (22-30) mmol/L Glucose 101 H (74-99) mg/dL
[2024-12-29] MEDS: LACTATED RINGERS 1,000 ML IV SCH (14:49)
--- NOTE | 2024-12-29 16:38 | P.PN ---
Progress Note - Text Progress Note Date: 12/29/24 Pleasant 64-year-old patient, follows in the office with Venu Joseph. Patient was seen in the ER, room E4. Chronic medical condition include COPD, hyperlipidemia. Patient been having chest pressure off and on since October. She is also had episodes of what she calls chest cold. Then yesterday she felt as elephant sitting on the chest. Symptoms with no change with activity. Symptoms are worse with laying down. No radiation. Some shortness of breath. No dizziness no lightheadedness. Decided to come in. Initial troponin in the ER was negative. Patient found in atrial fibrillation with rapid ventricular rate. Put on a Cardizem drip. December 27: Patient is off Cardizem drip. On Lopressor 25 mg twice daily. Subcu Lovenox. Pulmonary decide whether inpatient/outpatient biopsy. Discussed with patient . Increase activity. Remains in A-fib. Rate controlled December 28: Patient seen this morning. Off Cardizem drip. Remains A-fib. Rate controlled. On Toprol-XL. Patient being scheduled for bronchoscopy tomorrow with Dr. ROCHA. She had with the patient has been results of echocardiogram. Cardiology following. Lovenox discontinued review of pending bronchoscopy which may require biopsy. December 29: Patient seen this morning. Several family members present. Was n.p.o. for bronchoscopy. This was done later this afternoon. Formal results pending. Nurse called me that Dr. ROCHA said it is okay to proceed with anticoagulation starting tonight. Will place the patient on Eliquis. Active Medications Albuterol Sulfate (Albuterol Nebulized 2.5 Mg/3 Ml) 2.5 mg INHALATION RT-QID PRN PRN Reason: Shortness Of Breath Or Wheezing Apixaban (Apixaban 5 Mg Tab) 5 mg PO BID [facility]; Protocol Atorvastatin Calcium (Atorvastatin 20 Mg Tab) 20 mg PO HS [facility] Last Admin: 12/28/24 20:40 Dose: 20 mg Budesonide/Formoterol Fumarate (Symbicort 160-4.5 Mcg Inhaler) 2 puff INHALATION RT-BID [facility] [place] Last Admin: 12/29/24 08:41 Dose: 2 puff Lactated Ringer's (Lactated Ringers) 1,000 mls @ 20 mls/hr IV .Q24H [facility] [place] Last Admin: 12/29/24 14:49 Dose: Not Given Lidocaine HCl (Lidocaine 1% (10mg/Ml) For Iv Start) 0.1 ml INTRADERMA PER PROTOCOL PRN PRN Reason: IV Start Metoprolol Succinate (Metoprolol Succinate (Er) 50 Mg Tab.Er.24h) 50 mg PO DAILY [facility] Last Admin: 12/29/24 14:49 Dose: 50 mg Montelukast Sodium (Montelukast 10 Mg Tab) 10 mg PO HS PRN PRN Reason: Allergy Symptoms Naloxone HCl (Naloxone 0.4 Mg/Ml 1 Ml Vial) 0.2 mg IV Q2M PRN PRN Reason: Opioid Reversal Nicotine (Nicotine 21mg/24hr Patch) 1 patch TRANSDERM DAILY [facility] Last Admin: 12/29/24 07:46 Dose: Not Given Ondansetron HCl (Ondansetron 4 Mg/2 Ml Vial) 4 mg IVP Q6HR PRN PRN Reason: Nausea And Vomiting Last Admin: 12/27/24 23:40 Dose: 4 mg Zolpidem Tartrate (Zolpidem 5 Mg Tab) 5 mg PO HS PRN PRN Reason: Insomnia Last Admin: 12/28/24 21:54 Dose: 5 mg Social history: . Retired from [employer]. Patient smokes about three-quarter pack cigarettes a day for last 40 years. Alcohol socially. Physical examination: VITAL SIGNS: 98, 108, 17, 120 x 74, 91% room air GENERAL: Sitting up comfortable EYES: Pupils equal. Conjunctiva adri l. HEENT: External appearance of nose and ears normal, oral cavity grossly normal. NECK: JVD not raised; masses not palpable. HEART: Heart sounds irregular; no edema. LUNGS: Respiratory rate normal; decreased breath sound. ABDOMEN: Soft, nontender, liver spleen not palpable, no masses palpable. PSYCH: Alert and oriented x3; mood and affect adri l. INVESTIGATIONS, reviewed in the clinical context: 2D echo: EF 30%. Moderate to severe MR. December 4: Hemoglobin 12.9 platelets 228 potassium 3.3 creatinine 0.5 December 3: White count 9.5 globin 14.8 platelets 254 sodium 137 potassium 3.8 creatinine 0.55 Troponin I less than 0.012 proBNP 4860 TSH 1.35 Influenza type A, type B, RSV, SARS-CoV-2: Not detected EKG tracing personally reviewed by me-atrial fibrillation with a rapid ventricular rate. With flutter waves. Rate 156 Chest x-ray film personally reviewed by me-very prominent right hilum with irregular margins CT chest angio for PE: Negative for PE. 4.3 x 3.8 x 3.7 right hilar mass. Similar findings Assessment plan: - New onset atrial fibrillation flutter with a rapid ventricular rate: Controlled Initially on IV Cardizem drip. Subcu Lovenox 60 mg every 12-now held. Lopressor 25 twice daily. Eliquis will be started tonight - Cardiomyopathy with a EF of 30%. Possibly related to uncontrolled A-fib. Will need to rule out underlying ischemia. Being followed by cardiology. - Moderate to severe mitral regurgitation - Right hilar mass 4.3 x 3.68 x 3.[address] ROCHA from pulmonary. Underwent bronchoscopy today. Formal Jake results pending - COPD in a current smoker DuoNeb. Symbicort. Singulair - Chronic nicotine dependence cigarette smoker Nicotine patch - Hyperlipidemia Zocor - Full code Start Eliquis tonight. Hopefully discharge tomorrow Past Medical History Past Medical History: Hyperlipidemia History of Any Multi-Drug Resistant Organisms: None Reported Past Surgical History: No Surgical Hx Reported Past Psychological History: No Psychological Hx Reported Smoking Status: Current every day smoker Past Alcohol Use History: Daily Past Drug Use History: None Reported
[2024-12-29 17:02] VITALS: RESP 16
[2024-12-29] MEDS: APIXABAN 5 MG TAB PO SCH (19:30)
[2024-12-30 10:58] VITALS: TEMP 98.1
--- NOTE | 2024-12-30 11:48 | P.PN ---
Subjective Progress Note Date: 12/30/24 Principal diagnosis: Shortness of breath. This is a 64-year-old female, [id number] smoking history, known history of hypertension, tobacco dependence syndrome, patient presented to the hospital yesterday with mostly 1 day history of increased shortness of breath, and respiratory congestion. Upon her initial evaluation patient was found to be in atrial fibrillation with RVR. She was started on IV Cardizem and Lovenox. Patient remains in atrial fibrillation, she denies any chest pain, denies any palpitations, denies any fever or chills denies any hemoptysis. Considering her pulmonary symptoms, CT angiogram of the chest was done, and it showed a 4.3 x 3.8 x 3.7 right hilar mass highly suspicious for lung cancer. In addition the patient was found to have a 1.5 cm in the superior segment of the left lower lobe. This is felt most likely metastatic in nature. Considering the findings, this consult was initiated. I saw the patient today, and I explained to her and her that the findings are highly suspicious for bronchogenic carcinoma however at this point the main concern is her atrial fibrillation and RVR, needs to be fully addressed, and could consider workup on outpatient basis including a PET scan, eventually the patient will need to have bronchoscopy and biopsy. Progress note dated December 28, 2024. 64-year-old patient seen today in room 361. She is resting comfortably in bed. Her is in the room with her. The patient is currently on room air. She is not receiving any IV fluids. The patient was admitted with a diagnosis of increasing shortness of breath. She does have a history of hypertension, tobacco dependence syndrome, and probable COPD. She was also found to have atrial fibrillation with RVR. In addition, CT scan of the chest revealed a relatively large right hilar mass, suspicious for lung cancer. In addition, she had a 1.5 cm lesion in the superior segment of the left lower lobe. The patient is scheduled to have bronchoscopy tomorrow. Will do it with general anesthesia and fluoroscopy. Additional recommendations and suggestions are forthcoming. No new laboratory data today. Progress note dated December 29, 2024. 64-year-old female seen today in room 361. The patient appears to have a right hilar mass on CT scan. The patient will undergo bronchoscopy today. Additional recommendations and suggestions are forthcoming. She is resting comfortably in bed. in the room. She is currently on room air. She is not receiving any IV fluids. Laboratory data today includes a sodium 134, potassium 4, chloride 99, CO2 32, BUN 10, and creatinine 0.72. Glucose is 101. Calcium is 8.8. The patient had an uneventful night. Progress note dated December 30, 2024. 64-year-old female who underwent bronchoscopy yesterday. We thought initially after looking at the CT scan, we may see an endobronchial lesion. Unfortunately, we did not. There was some bulging of the medial wall of the right mainstem bronchus. We did transbronchial needle aspiration biopsies from that location. The patient will see me in the office next week. If the biopsies are negative, I will have her see Dr. Gutierrez for mediastinoscopy. At the same time, we will order a PET scan, and pulmonary function testing. Currently, she is resting comfortably in bed. She is in no distress. She is not receiving any supplemental oxygen, or IVs. Objective - Vital Signs Vital signs: Vital Signs Temp 98.1 F 12/30/24 08:55 Pulse 91 12/30/24 08:55 Resp 16 12/30/24 08:55 BP 131/82 12/30/24 08:55 Pulse Ox 96 12/30/24 08:55 FiO2 Intake & Output 12/29/24 12/30/24 12/30/24 18:59 06:59 18:59 Intake Total 692 20 240 Balance 692 20 240 Weight 66.5 kg Intake: IV 470 20 Invasive Line 1 20 20 Oral 222 240 Other: Voiding Method Toilet Toilet # Voids 5 2 1 - Exam No acute distress, oriented 3. HEENT examination is grossly unremarkable. Mucous membranes are moist. No oral lesions. Neck supple. Full range of motion. No adenopathy thyromegaly or neck vein distention. Cardiovascular examination reveals an irregular rhythm and rate. S1-S2 normal. No S3 or S4. No discernible murmur noted. Lungs reveal clear breath sounds. Breath sounds are diminished bilaterally. No adventitious lung sounds including wheezes rhonchi or crackles. Abdomen soft bowel sounds are heard. No masses or tenderness. Extremities are intact. No cyanosis clubbing or edema. Skin is without rash or lesion. Neurologic examination is brief but nonfocal. - Labs CBC & Chem 7: 12/27/24 00:53 12/29/24 06:47 Assessment and Plan Assessment: Acute atrial fibrillation with rapid ventricular response. Probable underlying COPD with COPD exacerbation. Large right hilar mass, suspicious for bronchogenic carcinoma. Left lower lobe pulmonary nodule, suspicious for bronchogenic carcinoma. Hyperlipidemia. Tobacco dependence syndrome. Plan: Plan dated December 28, 2024. The patient is going to be scheduled for bronchoscopy, with general anesthesia tomorrow. Will use fluoroscopy as well if necessary. Her major lesion is in the right hilar area, and we may actually run into it, during bronchoscopy. Labs, x-rays, medications are reviewed. The patient is n.p.o. after midnight. Consent on the chart will be placed. Labs, x-rays, medications are reviewed. Prognosis is guarded. Dictation was produced using [employer] software. Please excuse any grammatical, word or spelling errors. Plan dated December 29, 2024. The patient is scheduled for bronchoscopy today, under general anesthesia. CT scan revealed a right hilar mass. Labs, x-rays, and all medications are reviewed. We will continue to follow make recommendations along the way. Prognosis is certainly guarded. Dictation was produced using [employer] software. Please excuse any grammatical, word or spelling errors. Plan dated December 30, 2024. The patient can be discharged home. She will see me in the office, either or Saturday of next week. At that time, we will do pulmonary function testing, set her up for a PET scan and also discussed the results of the biopsies that were done yesterday, December 29. This was explained to the patient and the patient's . The patient is stable. The patient can be discharged. No additional recommendations are made. Dictation was produced using [employer] software. Please excuse any grammatical, word or spelling errors. Time with Patient: Less than 30
[2024-12-30 14:42] VITALS: BP 121/67; PULSE 87
--- NOTE | 2024-12-30 16:36 | OP ---
OPERATIVE REPORT DATE OF SERVICE : PULMONARY/CRITICAL CARE PROCEDURE NOTE PROCEDURE PERFORMED: Bronchoscopy, airway examination, therapeutic lavage and transbronchial needle aspiration, biopsies in the area of the medial wall of the right mainstem. PREOPERATIVE DIAGNOSIS: Right hilar mass. POSTOPERATIVE DIAGNOSIS: Right hilar mass. OPERATORS: Dr. Lerner and Dr. Sweet. The patient's procedure was done in [facility] room #1 under general anesthesia. Anesthesia provided general endotracheal anesthesia. We also had fluoro in the room, although, we did not need them. There was informed consent and universal timeout. DESCRIPTION OF PROCEDURE: After the patient was adequately anesthetized and on the ventilator, the bronchoscope was inserted through the bronchoscope adapter, connected to the endotracheal tube. The bronchoscope was taken through the endotracheal tube, out into the distal trachea. The tracheal janell was sharp. The left side was evaluated first. The left upper lobe proper and its 2 segments, the lingula and its 2 segments and the left lower lobe and its 4 segments were all normal. There were some secretions, they were suctioned. On the right side, the right upper lobe and its 3 segments, right middle lobe and its 2 segments, and the right lower lobe and its 5 segments were all found to be normal. Of note was the fact that there was some bulging of the medial wall of the right mainstem. This is where we did our biopsies. We did multiple passes with the transbronchial needle, into the medial wall of the right mainstem. We did obtain some tissue. This specimen will go to the laboratory for analysis. The patient tolerated the procedure well. We did no brushes or washes. There was minimal bleeding. The patient tolerated the procedure well. We ensured hemostasis before the bronchoscope was withdrawn. The bronchoscope was withdrawn and the patient will be recovered. The specimens were sent to the laboratory for analysis. I did speak to the patient's and mentioned to him that we may or may not have gotten a diagnosis on his , and the patient may benefit from mediastinoscopy. MMODL / IJN: [id number] /
--- NOTE | 2024-12-30 18:23 | P.DS ---
Providers Date of admission: 12/26/24 18:37 Expected date of discharge: 12/30/24 Attending physician: Elijah Hwang Consults: 12/26/24 18:37 Consult Physician Urgent Consulting Provider: [facility] Consult Reason/Comments: new onset afib Do you want consulting provider notified?: Already Contacted Consult Physician Urgent Consulting Provider: Nati Barry Reason/Comments: new lung mass Do you want consulting provider notified?: Already Contacted Primary care physician: Ramakrishna Jake [place] [facility] Course: Pleasant 64-year-old patient, follows in the office with Venu Joseph. Patient was seen in the ER, room E4. Chronic medical condition include COPD, hyperlipidemia. Patient been having chest pressure off and on since October. She is also had episodes of what she calls chest cold. Then yesterday she felt as elephant sitting on the chest. Symptoms with no change with activity. Symptoms are worse with laying down. No radiation. Some shortness of breath. No dizziness no lightheadedness. Decided to come in. Initial troponin in the ER was negative. Patient found in atrial fibrillation with rapid ventricular rate. Put on a Cardizem drip. December 27: Patient is off Cardizem drip. On Lopressor 25 mg twice daily. Subcu Lovenox. Pulmonary decide whether inpatient/outpatient biopsy. Discussed with patient . Increase activity. Remains in A-fib. Rate controlled December 28: Patient seen this morning. Off Cardizem drip. Remains A-fib. Rate controlled. On Toprol-XL. Patient being scheduled for bronchoscopy tomorrow with Dr. LERNER. She had with the patient has been results of echocardiogram. Cardiology following. Lovenox discontinued review of pending bronchoscopy which may require biopsy. December 6: Patient seen this morning. Several family members present. Was n.p.o. for bronchoscopy. This was done later this afternoon. Formal results pending. Nurse called me that Dr. LERNER said it is okay to proceed with anticoagulation starting tonight. Will place the patient on Eliquis. December 7: Doing well. Up and about. A-fib controlled. Discussed with patient . Will follow-up with Dr. Saenz next week. Also with Dr. Yvonne Carroll. Social history: . Retired from [employer]. Patient smokes about three-quarter pack cigarettes a day for last 40 years. Alcohol socially. Physical examination: VITAL SIGNS: 98.1, 87, 16, 121 x 67, 94% room air GENERAL: Sitting up comfortable EYES: Pupils equal. Conjunctiva adri l. HEENT: External appearance of nose and ears normal, oral cavity grossly normal. NECK: JVD not raised; masses not palpable. HEART: Heart sounds irregular; no edema. LUNGS: Respiratory rate normal; decreased breath sound. ABDOMEN: Soft, nontender, liver spleen not palpable, no masses palpable. PSYCH: Alert and oriented x3; mood and affect adri l. INVESTIGATIONS, reviewed in the clinical context: 2D echo: EF 30%. Moderate to severe MR. December 27: Hemoglobin 12.9 platelets 228 potassium 3.3 creatinine 0.5 December 26: White count 9.5 globin 14.8 platelets 254 sodium 137 potassium 3.8 creatinine 0.55 Troponin I less than 0.012 proBNP 4860 TSH 1.35 Influenza type A, type B, RSV, SARS-CoV-2: Not detected EKG tracing personally reviewed by me-atrial fibrillation with a rapid ventricular rate. With flutter waves. Rate 156 Chest x-ray film personally reviewed by me-very prominent right hilum with irregular margins CT chest angio for PE: Negative for PE. 4.3 x 3.8 x 3.7 right hilar mass. Similar findings Assessment plan: - New onset atrial fibrillation flutter with a rapid ventricular rate: Controlled Initially on IV Cardizem drip. Subcu Lovenox 60 mg every 12-now held. Lopressor 25 twice daily. Eliquis 5 mg twice daily - Cardiomyopathy with a EF of 30%. Possibly related to uncontrolled A-fib. Will need to rule out underlying ischemia. Follow-up outpatient with Dr. Linda Carroll - Moderate to severe mitral regurgitation - Right hilar mass 4.3 x 3.68 x 3.[address] LERNER from pulmonary. Bronchoscopy with biopsy done by Dr. LERNER December 29: - COPD in a current smoker DuoNeb. Symbicort. Singulair - Chronic nicotine dependence cigarette smoker Nicotine patch - Hyperlipidemia Zocor - Full code Disposition: Home Past Medical History Past Medical History: Hyperlipidemia History of Any Multi-Drug Resistant Organisms: None Reported Past Surgical History: No Surgical Hx Reported Past Psychological History: No Psychological Hx Reported Smoking Status: Current every day smoker Past Alcohol Use History: Daily Past Drug Use History: None Reported Plan - Discharge Summary Discharge Rx Participant: No New Discharge Prescriptions: New Albuterol Sulfate [Albuterol Sulfate Hfa] 1 puff PO Q4-6H #8.5 gm Apixaban [Eliquis] 5 mg PO BID #60 tab Nicotine 21Mg/24Hr Patch [Habitrol] 1 patch TRANSDERM DAILY #30 patch Atorvastatin [Lipitor] 20 mg PO HS #60 tab Budesonide-Formot 160-4.5 Mcg [Symbicort 160-4.5 Mcg Inhaler] 2 puff INHALATION RT-BID #1 each Metoprolol Succinate (ER) [Toprol XL] 50 mg PO DAILY #30 tab Continue Montelukast [Singulair] 10 mg PO HS PRN PRN Reason: Allergy Symptoms Discontinued Simvastatin [Zocor] 40 mg PO HS Discharge Medication List Montelukast [Singulair] 10 mg PO HS PRN 12/26/24 [History] Albuterol Sulfate [Albuterol Sulfate Hfa] 1 puff PO Q4-6H #8.5 gm 12/30/24 [Rx] Apixaban [Eliquis] 5 mg PO BID #60 tab 12/30/24 [Rx] Atorvastatin [Lipitor] 20 mg PO HS #60 tab 12/30/24 [Rx] Budesonide-Formot 160-4.5 Mcg [Symbicort 160-4.5 Mcg Inhaler] 2 puff INHALATION RT-BID #1 each 12/30/24 [Rx] Metoprolol Succinate (ER) [Toprol XL] 50 mg PO DAILY #30 tab 12/30/24 [Rx] Nicotine 21Mg/24Hr Patch [Habitrol] 1 patch TRANSDERM DAILY #30 patch 12/30/24 [Rx] Follow up Appointment(s)/Referral(s): Venu Joseph MD [REFERRING] - 1 Week (The office will call you with an appointment time and date. ) Ismael Lerner DO [Doctor of Osteopathic Medicine] - 01/07/25 2:00 pm () Colby Carroll MD [STAFF PHYSICIAN] - 10 Days (The office will pull records and call you with an appointment time and date. ) Patient Instructions/Handouts: A-fib (Atrial Fibrillation) (DC), Lung Cancer (GEN), COPD (Chronic Obstructive Pulmonary Disease) (GEN) Discharge/Stand Alone Forms: Area PCPs Discharge Disposition: HOME SELF-CARE
== END 2024-12-30 14:31 | disposition home or self-care (01) | DRG 309 ==
LOC: EC 15:05 → 3SCARD 18:37
PROVIDERS: ADMIT Hospitalist; ATTEND Hospitalist
PROC: 0BB38ZX Excision of Right Main Bronchus, Via Natural or Artificial Opening Endoscopic, Diagnostic (ICD-10-PCS; principal; 2024-12-29 12:45)
DX: I48.0 Paroxysmal atrial fibrillation (principal); J44.1 Chronic obstructive pulmonary disease with (acute) exacerbation; I10 Essential (primary) hypertension; I34.0 Nonrheumatic mitral (valve) insufficiency; I42.9 Cardiomyopathy, unspecified; I48.92 Unspecified atrial flutter; R91.1 Solitary pulmonary nodule; E78.5 Hyperlipidemia, unspecified; F17.210 Nicotine dependence, cigarettes, uncomplicated; Z79.51 Long term (current) use of inhaled steroids; Z79.899 Other long term (current) drug therapy; Z28.21 Immunization not carried out because of patient refusal; Z88.0 Allergy status to penicillin
CPT/HCPCS: 31629; 36415; 71046; 71275; 80048; 80053; 83735; 83880; 84145; 84443; 84484; 85025; 85610; 85730; 87636; 88305; 93005; 93306; 94640; 96365; 96366; 99285

== ENCOUNTER 2025-01-03 10:09 | Inpatient (IN) | payer BC ==
--- NOTE | 2025-01-03 10:51 | ED ---
General Adult HPI - General Chief complaint: Extremity Problem,Nontraumatic Stated complaint: Leg and Feet Swelling Time Seen by Provider: 01/03/25 10:21 Source: patient, family, RN notes reviewed, old records reviewed Mode of arrival: wheelchair Limitations: no limitations - History of Present Illness Initial comments: Patient is a 64-year-old female present to the emergency department with concerns with leg edema. Onset of symptoms was 4 days ago. Patient was just in the hospital for new onset A-fib. Patient only slept about 2 hours last night secondary to orthopnea. Patient also has associated leg edema. No exertional dyspnea. No chest pain at this time. Patient is on Eliquis. - Related Data Home Medications Medication Instructions Recorded Confirmed Montelukast [Singulair] 10 mg PO HS PRN 12/26/24 12/26/24 Previous Rx's Medication Instructions Recorded Albuterol Sulfate [Albuterol 1 puff PO Q4-6H #8.5 gm 12/30/24 Sulfate Hfa] Apixaban [Eliquis] 5 mg PO BID #60 tab 12/30/24 Atorvastatin [Lipitor] 20 mg PO HS #60 tab 12/30/24 Budesonide-Formot 160-4.5 Mcg 2 puff INHALATION RT-BID #1 each 12/30/24 [Symbicort 160-4.5 Mcg Inhaler] Metoprolol Succinate (ER) [Toprol 50 mg PO DAILY #30 tab 12/30/24 XL] Nicotine 21Mg/24Hr Patch [Habitrol] 1 patch TRANSDERM DAILY #30 patch 12/30/24 Allergies Allergy/AdvReac Type Severity Reaction Status Date / Time amoxicillin [From Augmentin] Allergy Nausea & Verified 01/03/25 10:15 Vomiting clavulanic acid Allergy Nausea & Verified 01/03/25 10:15 [From Augmentin] Vomiting Review of Systems ROS Statement: Those systems with pertinent positive or pertinent negative responses have been documented in the HPI. ROS Other: All systems not noted in ROS Statement are negative. Constitutional: Denies: fever Eyes: Denies: eye pain ENT: Denies: ear pain Respiratory: Reports: as per HPI. Denies: cough Cardiovascular: Reports: as per HPI, orthopnea, edema Endocrine: Denies: fatigue Gastrointestinal: Denies: abdominal pain Past Medical History Past Medical History: Atrial Fibrillation, Hyperlipidemia History of Any Multi-Drug Resistant Organisms: None Reported Past Surgical History: No Surgical Hx Reported Additional Past Surgical History / Comment(s): breast biopsies, colonoscopy Past Anesthesia/Blood Transfusion Reactions: No Reported Reaction Past Psychological History: No Psychological Hx Reported Smoking Status: Current every day smoker Past Alcohol Use History: Daily Past Drug Use History: None Reported General Exam Limitations: no limitations General appearance: alert, in no apparent distress Head exam: Present: normocephalic Eye exam: Present: normal appearance Neck exam: Present: normal inspection Respiratory exam: Present: rales (Left base) Cardiovascular Exam: Present: irregular rhythm GI/Abdominal exam: Present: soft. Absent: tenderness Extremities exam: Present: pedal edema. Absent: calf tenderness Neurological exam: Present: alert Psychiatric exam: Present: normal affect, normal mood Skin exam: Present: normal color Course Vital Signs 01/03/25 01/03/25 10:12 11:29 Temperature 98.1 F Pulse Rate 94 78 Respiratory 16 18 Rate Blood Pressure 132/84 135/88 O2 Sat by Pulse 97 98 Oximetry EKG Findings - EKG Results: EKG: interpreted by ERMD (Left axis. Q wave V1 V2. Nonspecific T wave.) EKG shows: atrial fibrillation Medical Decision Making - Medical Decision Making Was pt. sent in by a medical professional or institution (, PA, IRRIGATOR [employer], urgent care, hospital, or residential...) When possible be specific @ -No Did you speak to anyone other than the patient for history (EMS, parent, family, police, friend...)? What history was obtained from this source @ - present to help provide history including patient's recent admission and symptoms Did you review nursing and triage notes (agree or disagree)? Why? @ -I reviewed and agree with nursing and triage notes Were old charts reviewed (outside hosp., previous admission, EMS record, old EKG, old radiological studies, urgent care reports/EKG's, residential records)? Report findings @ -Previous admission reviewed including concern with A-fib and return with mass and biopsy Differential Diagnosis (chest pain, altered mental status, abdominal pain women, abdominal pain men, vaginal bleeding, weakness, fever, dyspnea, syncope, headache, dizziness, GI bleed, back pain, seizure, CVA, palpatations, mental health, musculoskeletal)? @ -Differential Dyspnea: Coronary syndrome, arrhythmia, tamponade, asthma, COPD, pulmonary embolism, pneu monia, pneumothorax, pulmonary effusion, anaphylaxis, diabetic ketoacidosis, flailed chest, pulmonary contusion, diaphragmatic rupture, anemia, neuromuscular, this is not meant to be an all-inclusive list. EKG interpreted by me (3pts min.). @ -As above X-rays interpreted by me (1pt min.). @ -Chest x-ray concerning for pulmonary edema. Right hilar mass. CT interpreted by me (1pt min.). @ -None done U/S interpreted by me (1pt. min.). @ -None done What testing was considered but not performed or refused? (CT, X-rays, U/S, labs)? Why? @ -None What meds were considered but not given or refused? Why? @ -None Did you discuss the management of the patient with other professionals (professionals i.e. , PA, IR[employer]ATOR [employer], lab, RT, psych nurse, social work administrator, operational intelligence analyst, teacher, electronic warfare officer, case operator)? Give summary @ -Dr. Hwang to admit covering Dr. Fraire Was smoking cessation discussed for >3mins.? @ -No Was critical care preformed (if so, how long)? @ -No Were there social determinants of health that impacted care today? How? (Homelessness, low income, unemployed, alcoholism, drug addiction, transportation, low edu. Level, literacy, decrease access to med. care, intermediate, rehab)? @ -No Was there de-escalation of care discussed even if they declined (Discuss DNR or withdrawal of care, Hospice)? DNR status @ -No What co-morbidities impacted this encounter? (DM, HTN, Smoking, COPD, CAD, Cancer, CVA, ARF, Chemo, Hep., AIDS, mental health diagnosis, sleep apnea, morbid obesity)? @ -Recent A-fib diagnosis Was patient admitted / discharged? Hospital course, mention meds given and route, prescriptions, significant lab abnormalities, going to OR and other pertinent info. @ -Patient presents with increasing edema and fatigue and orthopnea. Chest x- ray concerning for CHF. BNP elevated. Patient will be admitted with cardiac consult. Admission orders written. Patient reevaluated and updated Undiagnosed new problem with uncertain prognosis? @ -No Drug Therapy requiring intensive monitoring for toxicity (Heparin, Nitro, Insulin, Cardizem)? @ -No Were any procedures done? @ -No Diagnosis/symptom? @ -CHF Acute, or Chronic, or Acute on Chronic? @ -Acute Uncomplicated (without systemic symptoms) or Complicated (systemic symptoms)? @ -Default Side effects of treatment? @ -No Exacerbation, Progression, or Severe Exacerbation? @ -No Poses a threat to life or bodily function? How? (Chest pain, USA, SC, pneumonia, PE, COPD, DKA, ARF, appy, cholecystitis, CVA, Diverticulitis, Homicidal, Suicidal, threat to staff... and all critical care pts) @ -Threat to cardiac function - Lab Data Result diagrams: 01/03/25 10:54 01/03/25 10:54 Lab Results 01/03/25 01/03/25 01/03/25 Range/Units 10:54 10:54 10:54 WBC 5.70 (4.50-10.00) 10*3/uL RBC 3.90 L (4.10-5.20) 10*6/uL Hgb 12.9 (12.0-15.0) g/dL Hct 37.9 (37.2-46.3) % MCV 97.2 H (80.0-97.0) fL MCH 33.1 H (27.0-32.0) pg MCHC 34.0 (32.0-37.0) g/dL Plt Count 237 (140-440) 10*3/uL MPV 9.4 L (9.5-12.2) fL Immature Gran % (Auto) 0.4 % Neutrophils % 60.8 % Lymphocytes % 25.1 % Monocytes % 12.1 % Eosinophils % 0.9 % Basophils % 0.7 % Immature Gran # 0.02 (0.00-0.04) 10*3/uL Neutrophils # 3.47 (1.80-7.70) 10*3/uL Lymphocytes # 1.43 (0.90-5.00) 10*3/uL Monocytes # 0.69 (0.20-1.00) 10*3/uL Eosinophils # 0.05 (0.04-0.35) 10*3/uL Basophils # 0.04 (0.00-0.10) 10*3/uL PT 11.0 (10.0-12.5) sec INR 1.0 (<1.2) APTT 29.3 (22.0-30.0) sec Sodium 138 (137-145) mmol/L Potassium 3.8 (3.5-5.1) mmol/L Chloride 103 (98-107) mmol/L Carbon Dioxide 27 (22-30) mmol/L Anion Gap 8 mmol/L BUN 15 (7-17) mg/dL Creatinine 0.71 (0.52-1.04) mg/dL Est GFR (CKD-EPI)AfAm >90 (>60 ml/min/1.73 sqM) Est GFR (CKD-EPI)NonAf >90 (>60 ml/min/1.73 sqM) Glucose 113 H (74-99) mg/dL Plasma Lactic Acid Jason (0.7-2.0) mmol/L Calcium 9.1 (8.4-10.2) mg/dL Magnesium 2.2 (1.6-2.3) mg/dL Total Bilirubin 1.1 (0.2-1.3) mg/dL AST 33 (14-36) U/L ALT 52 H (4-34) U/L Alkaline Phosphatase 69 (38-126) U/L Troponin I (0.000-0.034) ng/mL NT-Pro-B Natriuret Pep 7650 pg/mL Total Protein 6.6 (6.3-8.2) g/dL Albumin 4.0 (3.5-5.0) g/dL 01/03/25 01/03/25 Range/Units 10:54 10:54 WBC (4.50-10.00) 10*3/uL RBC (4.10-5.20) 10*6/uL Hgb (12.0-15.0) g/dL Hct (37.2-46.3) % MCV (80.0-97.0) fL MCH (27.0-32.0) pg MCHC (32.0-37.0) g/dL Plt Count (140-440) 10*3/uL MPV (9.5-12.2) fL Immature Gran % (Auto) % Neutrophils % % Lymphocytes % % Monocytes % % Eosinophils % % Basophils % % Immature Gran # (0.00-0.04) 10*3/uL Neutrophils # (1.80-7.70) 10*3/uL Lymphocytes # (0.90-5.00) 10*3/uL Monocytes # (0.20-1.00) 10*3/uL Eosinophils # (0.04-0.35) 10*3/uL Basophils # (0.00-0.10) 10*3/uL PT (10.0-12.5) sec INR (<1.2) APTT (22.0-30.0) sec Sodium (137-145) mmol/L Potassium (3.5-5.1) mmol/L Chloride (98-107) mmol/L Carbon Dioxide (22-30) mmol/L Anion Gap mmol/L BUN (7-17) mg/dL Creatinine (0.52-1.04) mg/dL Est GFR (CKD-EPI)AfAm (>60 ml/min/1.73 sqM) Est GFR (CKD-EPI)NonAf (>60 ml/min/1.73 sqM) Glucose (74-99) mg/dL Plasma Lactic Acid Jason 0.9 (0.7-2.0) mmol/L Calcium (8.4-10.2) mg/dL Magnesium (1.6-2.3) mg/dL Total Bilirubin (0.2-1.3) mg/dL AST (14-36) U/L ALT (4-34) U/L Alkaline Phosphatase (38-126) U/L Troponin I <0.012 (0.000-0.034) ng/mL NT-Pro-B Natriuret Pep pg/mL Total Protein (6.3-8.2) g/dL Albumin (3.5-5.0) g/dL Disposition Clinical Impression: Congestive heart failure Disposition: ADMITTED IP TO THIS HOSP Is patient prescribed a controlled substance at d/c from ED?: No Referrals: Ramakrishna Joseph MD [Primary Care Provider] - 1-2 days Time of Disposition: 12:17
[2025-01-03] MEDS: FUROSEMIDE 10 MG/ML 4 ML VIAL IV STA (10:59)
[2025-01-03 11:03] LABS: Basophils # (A) 0.04 10*3/uL (0.00-0.10); Basophils % (A) 0.7 %; Eosinophils # (A) 0.05 10*3/uL (0.04-0.35); Eosinophils % (A) 0.9 %; HCT 37.9 % (37.2-46.3); HGB 12.9 g/dL (12.0-15.0); Lymphocytes # (A) 1.43 10*3/uL (0.90-5.00); Lymphocytes % (A) 25.1 %; MCH 33.1 pg (27.0-32.0); MCV 97.2 fL (80.0-97.0); Mean Platelet Volume 9.4 fL (9.5-12.2); Monocytes # (A) 0.69 10*3/uL (0.20-1.00); Monocytes % (A) 12.1 %; Neutrophils # (A) 3.47 10*3/uL (1.80-7.70); Neutrophils % (A) 60.8 %; Platelet Count 237 10*3/uL (140-440); RDW 15.7 % (11.5-14.5)
[2025-01-03 11:27] LABS: Partial Thromboplastin Time 29.3 sec (22.0-30.0)
[2025-01-03 11:40] LABS: ALT 52 U/L (4-34); AST 33 U/L (14-36); African American GFR (CKD) >90 (>60 ml/min/1.73 sqM); Alkaline Phosphatase 69 U/L (38-126); Anion Gap 8 mmol/L; Blood Urea Nitrogen 15 mg/dL (7-17); Calcium 9.1 mg/dL (8.4-10.2); Carbon Dioxide 27 mmol/L (22-30); Chloride 103 mmol/L (98-107); Glucose 113 mg/dL (74-99); Magnesium 2.2 mg/dL (1.6-2.3); Non-African American GFR(CKD) >90 (>60 ml/min/1.73 sqM); Potassium 3.8 mmol/L (3.5-5.1); Sodium 138 mmol/L (137-145); Total Bilirubin 1.1 mg/dL (0.2-1.3); Total Protein 6.6 g/dL (6.3-8.2)
--- NOTE | 2025-01-03 11:44 | XR ---
EXAMINATION TYPE: XR chest 2V DATE OF EXAM: 01/03/2025 11:17 AM COMPARISON: 12/26/2024 CLINICAL INDICATION: Female, 64 years old with history of difficulty breathing; [facility] TECHNIQUE: XR chest 2V Frontal and lateral views of the chest. FINDINGS: Lungs/Pleura: Right perihilar mass as seen on prior CT 12/26/2024. Increased interstitial lung markings . Prominent interstitial lung markings are seen scattered throughout the lungs. No evidence of focal consolidation, pneumothorax or pleural effusion. Pulmonary vascularity: Pulmonary vascular congestion. Heart/mediastinum: Cardiomediastinal silhouette is unremarkable. Musculoskeletal: No acute osseous pathology. IMPRESSION: Right perihilar mass again redemonstrated. Increased interstitial lung markings with exam correlate for pulmonary edema. Blunting of the costoph renic angles correlate for volume overload. [facility], , 01/03/2025 11:42 AM
[2025-01-03 11:46] LABS: NT-Pro-B-Type Natriuretic Pept 7650 pg/mL
[2025-01-03] MEDS: NITROGLYCERIN OINT 1 INCH/GM PACKET TOPICAL SCH (12:25)
[2025-01-03] MEDS: ASPIRIN 325 MG TAB PO STA (12:25)
[2025-01-03] MEDS: APIXABAN 5 MG TAB PO SCH (12:56)
[2025-01-03] MEDS: LOSARTAN 25 MG TAB PO SCH (12:56)
[2025-01-03] MEDS: METOPROLOL SUCCINATE (ER) 50 MG TAB.ER.24H PO SCH (12:56)
[2025-01-03] MEDS: SPIRONOLACTONE 25 MG TAB PO SCH (12:56)
--- NOTE | 2025-01-03 15:29 | P.CRDCN ---
History of Present Illness Consult date: 01/03/25 History of present illness: HPI: The patient, a 64-year-old with a past medical history of hypertension and tobacco smoking, initially presented on 12/26/2024 to [facility] with worsening shortness of breath and upper respiratory symptoms. During that admission, she was found to have atrial fibrillation with rapid ventricular response, right lung mass in the right hilum, and a left lower lobe pulmonary nodule. The right hilar mass was measured at 4.3 x 3.8 x 3.7 cm. A bronchoscopic lung biopsy was performed at that time. She was discharged on metoprolol succ inate 50 mg daily and Eliquis. Her TSH was within normal range during the previous admission. This time she presented to the hospital because of increased worsening shortness of breath, difficulty in breathing, endorsing symptoms of orthopnea and paroxysmal nocturnal dyspnea. She also endorsed symptoms of lower extremity edema. Admission chest x-ray shows increased pulmonary congestion. Pertinent cardiac Labs: TSH (normal), NT-proBNP 7000, last admission 4000 Cardiac home meds: Pertinent cardiac testing: - Chest X-ray: 12/2024: Mild increase in interstitial markings with mild pulmonary congestion and very small right-sided pleural effusion. When compared to older x-ray from last admission this is new. - EK12/2024: Rate-controlled atrial fibrillation with nonspecific ST changes. - ECHO: 12/2024: EF of 30-35%, mild concentric left ventricular hypertrophy, severely reduced global LV systolic function, mild mitral regurgitation, mild adrenal calcification. REVIEW OF SYSTEMS: 14 point review of system is negative except what is mentioned above in HPI. PHYSICAL EXAMINATION: Neck: Brisk carotid upstroke, no jugular venous distention. Lungs: Clear to auscultation. Heart: Regular rate and rhythm, S1-S2, no murmur or rub. Abdomen: Soft nontender, positive bowel sounds. Extremities: No edema, intact distal pulses. Neuro: Alert, oriented, no focal deficits. Detailed neuro exam was not performed. ASSESSMENT: # Acute heart failure with reduced ejection fraction (HFrEF) exacerbation with EF 30%, likely tachycardia-induced cardiomyopathy, ischemia not ruled out # Persistent atrial fibrillation # Right hilar mass and left lower lung lobe nodule, suspicious for malignancy PLAN: # Administer Lasix 40 mg IV BID today and transition to p.o. diuretic tomorrow # Administer Aldactone 25 mg daily # Administer Metoprolol XL 50 mg daily # Introduce guideline-directed medical therapy with Losartan 12.5 mg daily # Continue anticoagulation with Eliquis 5 mg BID # Prior to discharge, consider adding Farxiga # Continue to monitor telemetry Past Medical History Past Medical History: Atrial Fibrillation, Hyperlipidemia History of Any Multi-Drug Resistant Organisms: None Reported Past Surgical History: No Surgical Hx Reported Additional Past Surgical History / Comment(s): breast biopsies, colonoscopy Past Anesthesia/Blood Transfusion Reactions: No Reported Reaction Past Psychological History: No Psychological Hx Reported Smoking Status: Current every day smoker Past Alcohol Use History: Daily Past Drug Use History: None Reported Medications and Allergies Home Medications Medication Instructions Recorded Confirmed Type Montelukast [Singulair] 10 mg PO HS PRN 12/26/24 01/03/25 History Apixaban [Eliquis] 5 mg PO BID #60 tab 12/30/24 01/03/25 Rx Atorvastatin [Lipitor] 20 mg PO HS #60 tab 12/30/24 01/03/25 Rx Budesonide-Formot 160-4.5 Mcg 2 puff INHALATION RT-BID #1 each 12/30/24 01/03/25 Rx [Symbicort 160-4.5 Mcg Inhaler] Metoprolol Succinate (ER) [Toprol 50 mg PO DAILY #30 tab 12/30/24 01/03/25 Rx XL] Nicotine 21Mg/24Hr Patch [Habitrol] 1 patch TRANSDERM DAILY #30 patch 12/30/24 01/03/25 Rx Albuterol Sulfate [Albuterol 1 puff INHALATION RT-Q4H PRN 01/03/25 01/03/25 History Sulfate Hfa] Meclizine [Antivert] 12.5 mg PO TID PRN 01/03/25 01/03/25 History Allergies Allergy/AdvReac Type Severity Reaction Status Date / Time amoxicillin [From Augmentin] Allergy Nausea & Verified 01/03/25 12:48 Vomiting clavulanic acid Allergy Nausea & Verified 01/03/25 12:48 [From Augmentin] Vomiting Physical Exam Vitals: Vital Signs Temp Pulse Resp BP Pulse Ox 01/03/25 14:32 86 20 135/68 99 01/03/25 11:29 78 18 135/88 98 01/03/25 10:12 98.1 F 94 16 132/84 97 Intake and Output 01/03/25 01/03/25 01/03/25 06:59 14:59 22:59 Other: Weight 65.771 kg Results 01/03/25 10:54 01/03/25 10:54 Cardiac Enzymes 01/03/25 01/03/25 01/03/25 Range/Units 10:54 10:54 12:46 AST 33 (14-36) U/L Troponin I <0.012 <0.012 (0.000-0.034) ng/mL Coagulation 01/03/25 Range/Units 10:54 PT 11.0 (10.0-12.5) sec APTT 29.3 (22.0-30.0) sec CBC 01/03/25 Range/Units 10:54 WBC 5.70 (4.50-10.00) 10*3/uL RBC 3.90 L (4.10-5.20) 10*6/uL Hgb 12.9 (12.0-15.0) g/dL Hct 37.9 (37.2-46.3) % Plt Count 237 (140-440) 10*3/uL Comprehensive Metabolic Panel 01/03/25 Range/Units 10:54 Sodium 138 (137-145) mmol/L Potassium 3.8 (3.5-5.1) mmol/L Chloride 103 (98-107) mmol/L Carbon Dioxide 27 (22-30) mmol/L BUN 15 (7-17) mg/dL Creatinine 0.71 (0.52-1.04) mg/dL Glucose 113 H (74-99) mg/dL Calcium 9.1 (8.4-10.2) mg/dL AST 33 (14-36) U/L ALT 52 H (4-34) U/L Alkaline Phosphatase 69 (38-126) U/L Total Protein 6.6 (6.3-8.2) g/dL Albumin 4.0 (3.5-5.0) g/dL Current Medications Generic Name Dose Route Start Last Admin Trade Name Freq PRN Reason Stop Dose Admin Apixaban 5 mg 01/03/25 13:00 01/03/25 12:56 Apixaban 5 Mg Tab PO Not Given BID ADDIE Protocol Furosemide 40 mg 01/03/25 18:00 Furosemide 10 Mg/Ml 4 Ml Vial IV Q12H [facility] Losartan Potassium 12.5 mg 01/03/25 13:00 01/03/25 12:56 Losartan 25 Mg Tab PO Not Given DAILY ADDIE Metoprolol Succinate 50 mg 01/03/25 13:00 01/03/25 12:56 Metoprolol Succinate (Er) 50 Mg Tab.Er.24h PO Not Given DAILY ADDIE Nitroglycerin 1 inch 01/03/25 12:30 01/03/25 12:25 Nitroglycerin Oint 1 Inch/Gm Packet TOPICAL 01/04/25 12:29 1 inch Q6HR ADDIE Administration Spironolactone 25 mg 01/03/25 13:00 01/03/25 12:56 Spironolactone 25 Mg Tab PO Not Given DAILY ADDIE Intake and Output 01/03/25 01/03/25 01/03/25 06:59 14:59 22:59 Other: Weight 65.771 kg Patient Weight 01/04/25 06:59 Weight 65.771 kg 01/03/25 10:54 01/03/25 10:54
[2025-01-03] MEDS ORDERED: FUROSEMIDE 10 MG/ML 4 ML VIAL IV SCH (16:00)
[2025-01-03] MEDS: FUROSEMIDE 10 MG/ML 4 ML VIAL IV SCH (17:44)
[2025-01-03 18:04] VITALS: RESP 18
[2025-01-03] MEDS ORDERED: MECLIZINE 12.5 MG TAB PO PRN (18:14)
[2025-01-03] MEDS ORDERED: MONTELUKAST 10 MG TAB PO PRN (18:14)
[2025-01-03] MEDS ORDERED: ALBUTEROL HFA INHALER INHALATION PRN (18:15)
[2025-01-03] MEDS: ATORVASTATIN 20 MG TAB PO SCH (20:03)
[2025-01-03] MEDS: SYMBICORT 160-4.5 MCG INHALER INHALATION SCH (20:18)
--- NOTE | 2025-01-03 21:10 | P.HPIM ---
History of Present Illness H&P Date: 01/03/25 Chief Complaint: Short of breath Pleasant 64-year-old patient, follows PCP Venu Joseph. Recently in the hospital from December 26 through December 30. Admitted with chest pre ssure. Found to be in A-fib. Was discharged on anticoagulation. Eliquis. Also had a bronchoscopy for a lung mass and biopsy with Dr. ROCHA. 2D echo had shown EF of 30%. Patient is doing well at home. Last 2 days noticed slight shortness of breath. Also finding it difficult to lie down and had to sit up and sleep. Also noticed significant swelling of the lower extremity today. ER found to be CHF started on IV Lasix. No fever no chills. No chest pain. Breathing better after getting Lasix. Review of systems: GEN.: Tired EYES: None HEENT: None NECK: None RESPIRATORY: [As above CARDIOVASCULAR: As above, GASTROINTESTINAL: None GENITOURINARY: None MUSCULOSKELETAL: None LYMPHATICS: None HEMATOLOGICAL: None PSYCHIATRY: None NEUROLOGICAL: None Social history: . Retired from [employer] [place]. smokes about three-quarter pack cigarettes a day for last 40 years-up December 26, 2024 alcohol socially. Physical examination: VITAL SIGNS: 98.1, 94, 16, 132/84, 97% room air upon admission GENERAL: Sitting up comfortable EYES: Pupils equal. Conjunctiva adri l. HEENT: External appearance of nose and ears normal, oral cavity grossly normal. NECK: JVD possibly raised; masses not palpable. HEART: Heart sounds irregular; no edema. LUNGS: Respiratory rate normal; decreased breath sound. ABDOMEN: Soft, nontender, liver spleen not palpable, no masses palpable. PSYCH: Alert and oriented x3; mood and affect adri l. MUSCULOSKELETAL:No Clubbing/cyanosis;muscles-grossly intact NEUROLOGICAL: Cranial nerves grossly intact; no facial asymmetry, power and sensation grossly intact. LYMPHATICS: No lymph nodes palpable in the axilla and neck INVESTIGATIONS, reviewed in the clinical context: January 03, 2025: White count 5.7 hemoglobin 12.9 platelets 237 potassium 3.8 creatinine 0.71 proBNP 7650 troponin less than 0.012 x 2 EKG tracing personally reviewed by me-atriraimundo flutter-l fibrillation rate 78 Chest x-ray film personally reviewed by me-right hilum prominent. Some cardiomegaly Recent investigations December 27: Hemoglobin 12.9 platelets 228 potassium 3.3 creatinine 0.5 2D echo: EF 30%. Moderate to severe MR. CT chest angio for PE: Negative for PE. 4.3 x 3.8 x 3.7 right hilar mass. Similar findings Assessment plan: -Acute exacerbation of cardiomyopathy EF 30%. Some contribution from atrial fibrillation. IV Lasix every 12. Fluid restriction 1500 cc a day. Cozaar. Toprol-XL 50 mg a day. Aldactone -Persistent t atrial fibrillation flutter: Rate: Controlled Lopressor 25 twice daily. Eliquis 5 mg twice daily - Moderate to severe mitral regurgitation - Right hilar mass 4.3 x 3.68 x 3.[address] ROCHA from pulmonary. Bronchoscopy with biopsy done by Dr. ROCHA December 29: - COPD in a current smoker DuoNeb. Symbicort. Singulair - Hyperlipidemia Zocor - Full code Past Medical History Past Medical History: Atrial Fibrillation, Heart Failure, Hyperlipidemia Additional Past Medical History / Comment(s): recently diagnosed with A-fib History of Any Multi-Drug Resistant Organisms: None Reported Past Surgical History: No Surgical Hx Reported Additional Past Surgical History / Comment(s): breast biopsies, colonoscopy Past Anesthesia/Blood Transfusion Reactions: No Reported Reaction Past Psychological History: No Psychological Hx Reported Smoking Status: Former smoker Past Alcohol Use History: Daily Past Drug Use History: None Reported Medications and Allergies Home Medications Medication Instructions Recorded Confirmed Type Montelukast [Singulair] 10 mg PO HS PRN 12/26/24 01/03/25 History Apixaban [Eliquis] 5 mg PO BID #60 tab 12/30/24 01/03/25 Rx Atorvastatin [Lipitor] 20 mg PO HS #60 tab 12/30/24 01/03/25 Rx Budesonide-Formot 160-4.5 Mcg 2 puff INHALATION RT-BID #1 each 12/30/24 01/03/25 Rx [Symbicort 160-4.5 Mcg Inhaler] Metoprolol Succinate (ER) [Toprol 50 mg PO DAILY #30 tab 12/30/24 01/03/25 Rx XL] Nicotine 21Mg/24Hr Patch [Habitrol] 1 patch TRANSDERM DAILY #30 patch 12/30/24 01/03/25 Rx Albuterol Sulfate [Albuterol 1 puff INHALATION RT-Q4H PRN 01/03/25 01/03/25 History Sulfate Hfa] Meclizine [Antivert] 12.5 mg PO TID PRN 01/03/25 01/03/25 History Allergies Allergy/AdvReac Type Severity Reaction Status Date / Time amoxicillin [From Augmentin] Allergy Nausea & Verified 01/03/25 12:48 Vomiting clavulanic acid Allergy Nausea & Verified 01/03/25 12:48 [From Augmentin] Vomiting Physical Exam Vitals: Vital Signs Temp Pulse Pulse Resp BP BP Pulse Ox 01/03/25 19:57 99.3 F 90 18 135/79 95 01/03/25 16:00 98.8 F 85 18 109/66 96 01/03/25 14:32 86 20 135/68 99 01/03/25 11:29 78 18 135/88 98 01/03/25 10:12 98.1 F 94 16 132/84 97 Intake and Output 01/03/25 01/03/25 01/03/25 06:59 14:59 22:59 Intake Total 120 Balance 120 Intake: Oral 120 Other: Voiding Method Toilet Weight 65.771 kg 65.771 kg Results CBC & Chem 7: 01/03/25 10:54 01/03/25 10:54 Labs: Abnormal Lab Results - Last 24 Hours (Table) 01/03/25 01/03/25 Range/Units 10:54 10:54 RBC 3.90 L (4.10-5.20) 10*6/uL MCV 97.2 H (80.0-97.0) fL MCH 33.1 H (27.0-32.0) pg MPV 9.4 L (9.5-12.2) fL Glucose 113 H (74-99) mg/dL ALT 52 H (4-34) U/L Thrombosis Risk Factor Assmnt - Choose All That Apply Each Risk Factor Represents 2 Points: Age 61-74 years Thrombosis Risk Factor Assessment Total Risk Factor Score: 2 Thrombosis Risk Factor Assessment Level: Low Risk
[2025-01-04 00:43] LABS: Chol/HDL Ratio 2.22 Ratio; LDL Cholesterol,Calculated 83.7 mg/dL (0.0-131.0)
[2025-01-04 07:09] LABS: African American GFR (CKD) >90 (>60 ml/min/1.73 sqM); Anion Gap 7 mmol/L; Blood Urea Nitrogen 16 mg/dL (7-17); Calcium 9.6 mg/dL (8.4-10.2); Carbon Dioxide 38 mmol/L (22-30); Chloride 95 mmol/L (98-107); Glucose 97 mg/dL (74-99); Non-African American GFR(CKD) >90 (>60 ml/min/1.73 sqM); Sodium 140 mmol/L (137-145)
[2025-01-04 08:39] VITALS: BP 99/67; PULSE 105; TEMP 98.8
[2025-01-04] MEDS: NICOTINE 14MG/24HR PATCH TRANSDERM SCH (08:42)
[2025-01-04] MEDS ORDERED: ASPIRIN 325 MG TAB PO SCH (09:00)
--- NOTE | 2025-01-04 10:41 | P.PN ---
Subjective HISTORY OF PRESENT ILLNESS: HPI: The patient, a 64-year-old with a past medical history of hypertension and tobacco smoking, initially presented on 12/26/2024 to [facility] with worsening shortness of breath and upper respiratory symptoms. During that admission, she was found to have atrial fibrillation with rapid ventricular response, right lung mass in the right hilum, and a left lower lobe pulmonary nodule. The right hilar mass was measured at 4.3 x 3.8 x 3.7 cm. A bronchoscopic lung biopsy was performed at that time. She was discharged on metoprolol succinate 50 mg daily and Eliquis. Her TSH was within normal range during the pr evious admission. This time she presented to the hospital because of increased worsening shortness of breath, difficulty in breathing, endorsing symptoms of orthopnea and paroxysmal nocturnal dyspnea. She also endorsed symptoms of lower extremity edema. Admission chest x-ray shows increased pulmonary congestion. Pertinent cardiac testing: - Chest X-ray: 12/2024: Mild increase in interstitial markings with mild pulmonary congestion and very small right-sided pleural effusion. When compared to older x-ray from last admission this is new. - EK12/2024: Rate-controlled atrial fibrillation with nonspecific ST changes. - ECHO: 12/2024: EF of 30-35%, mild concentric left ventricular hypertrophy, severely reduced global LV systolic function, mild mitral regurgitation, mild adrenal calcification. 01/04/2025 Patient examined this morning at the bedside. She is currently sitting up in the chair. Patient currently denies any chest pain or pressure. She denies any shortness of breath. PHYSICAL EXAM: VITAL SIGNS: Reviewed. GENERAL: Well-developed in no acute distress. NECK: Supple. No JVD or thyromegaly LUNGS: Respirations even and unlabored. Lungs essentially clear to auscultation bilaterally. HEART: Irregular rate and rhythm. S1 and S2 heard. EXTREMITIES: Normal range of motion. No clubbing or cyanosis. Peripheral pulses intact. No lower extremity edema ASSESSMENT: Shortness of breath Acute heart failure with reduced EF Persistent atrial fibrillation with controlled ventricular rate, diagnosed 12/2024 Right lung mass, status post recent bronchoscopy Cardiomyopathy, ischemic versus nonischemic, suspect tachycardia induced due to A-fib, underlying CAD not ruled out PLAN: Continue current cardiac medications including Eliquis, Lipitor, losartan, metoprolol, and Aldactone Consider adding Farxiga on an outpatient basis if patient's blood pressure able to tolerate Discontinue IV Lasix. Begin oral Lasix 40 mg daily Patient instructed to monitor her blood pressure on an outpatient basis Patient reports she has a follow-up appointment with Dr. Lerner on 01/07/2025 Patient is stable for discharge home today from a cardiac standpoint. Patient already has an appointment in the office with Dr. Carroll for the week of January 11. Nurse practitioner note has been reviewed by physician. Signing provider agrees with the documented findings, assessment, and plan of care documented by PATIENT FINANCIAL SERVICES SPECIALIST as a scribe. Objective - Vital Signs Vital signs: Vital Signs Temp 98.8 F 01/04/25 08:00 Pulse 105 H 01/04/25 08:00 Resp 18 01/04/25 08:00 BP 99/67 01/04/25 08:00 Pulse Ox 93 L 01/04/25 08:00 FiO2 Intake & Output 01/03/25 01/04/25 01/04/25 18:59 06:59 18:59 Intake Total 120 240 Output Total 2000 Balance 120 -1999 240 Weight 65.771 kg 64.4 kg Intake: Oral 120 240 Output: Urine 2000 Other: Voiding Method Toilet Toilet # Voids 5 - Labs CBC & Chem 7: 01/03/25 10:54 01/04/25 06:25 Labs: Abnormal Lab Results - Last 24 Hours (Table) 01/03/25 01/03/25 01/03/25 Range/Units 10:54 10:54 10:54 RBC 3.90 L (4.10-5.20) 10*6/uL MCV 97.2 H (80.0-97.0) fL MCH 33.1 H (27.0-32.0) pg MPV 9.4 L (9.5-12.2) fL Chloride (98-107) mmol/L Carbon Dioxide (22-30) mmol/L Glucose 113 H (74-99) mg/dL ALT 52 H (4-34) U/L HDL Cholesterol 80.30 H (40.00-60.00) mg/dL 01/04/25 Range/Units 06:25 RBC (4.10-5.20) 10*6/uL MCV (80.0-97.0) fL MCH (27.0-32.0) pg MPV (9.5-12.2) fL Chloride 95 L (98-107) mmol/L Carbon Dioxide 38 H (22-30) mmol/L Glucose (74-99) mg/dL ALT (4-34) U/L HDL Cholesterol (40.00-60.00) mg/dL
--- NOTE | 2025-01-04 14:34 | P.DS ---
Providers Date of admission: 01/03/25 12:20 Expected date of discharge: 01/04/25 Attending physician: Elijah Hwang Consults: 01/03/25 12:17 Consult Physician Routine Consulting Provider: Colby Carroll Consult Reason/Comments: chf Do you want consulting provider notified?: Yes Primary care physician: [facility] Course: Chief Complaint: Short of breath Pleasant 64-year-old patient, follows PCP Venu Joseph. Recently in the hospital from December 26 through December 30. Admitted with chest pressure. Found to be in A-fib. Was discharged on anticoagulation. Eliquis. Also had a bronchoscopy for a lung mass and biopsy with Dr. ROCHA. 2D echo had shown EF of 30%. Patient is doing well at home. Last 2 days noticed slight shortness of breath. Also finding it difficult to lie down and had to sit up and sleep. Also noticed significant swelling of the lower extremity today. ER found to be CHF started on IV Lasix. No fever no chills. No chest pain. Breathing better after getting Lasix. January 04: Breathing much improved. No orthopnea. Edema nearly resolved. Patient be discharged on Lasix, Cozaar, Toprol-XL, Aldactone. Fluid restriction was discussed at length with the patient and . Patient is due to follow-up with her flask carrier this coming . For biopsy results. Will also follow-up with cardiology outpatient. Discussion and discharge planning more than 35 minutes Social history: . Retired from [employer]. smokes about three-quarter pack cigarettes a day for last 40 years-up December 26, 2024 alcohol socially. Physical examination: VITAL SIGNS: 98.8, 105, 18, 99 x 67, 93% room air GENERAL: Sitting up comfortable EYES: Pupils equal. Conjunctiva adri l. HEENT: External appearance of nose and ears normal, oral cavity grossly normal. NECK: JVD possibly raised; masses not palpable. HEART: Heart sounds irregular; no edema. LUNGS: Respiratory rate normal; decreased breath sound. ABDOMEN: Soft, nontender, liver spleen not palpable, no masses palpable. PSYCH: Alert and oriented x3; mood and affect adri l. MUSCULOSKELETAL:No Clubbing/cyanosis;muscles-grossly intact INVESTIGATIONS, reviewed in the clinical context: January 04: Potassium 4 creatinine 0.72 January 03, 2025: White count 5.7 hemoglobin 12.9 platelets 237 potassium 3.8 creatinine 0.71 proBNP 7650 troponin less than 0.012 x 2 EKG tracing personally reviewed by me-atria, flutter-l fibrillation rate 78 Chest x-ray film personally reviewed by me-right hilum prominent. Some cardiomegaly Recent investigations December 27: Hemoglobin 12.9 platelets 228 potassium 3.3 creatinine 0.5 2D echo: EF 30%. Moderate to severe MR. CT chest angio for PE: Negative for PE. 4.3 x 3.8 x 3.7 right hilar mass. Sim ilar findings Assessment plan: -Acute exacerbation of cardiomyopathy EF 30%. Some contribution from atrial fibrillation: Improved. IV Lasix every 12. Fluid restriction Cozaar. Toprol-XL 50 mg a day. Aldactone Discharged on fluid restriction 2000 cc a day Follow-up with Dr. Le Benoit from cardiology -Persistent t atrial fibrillation flutter: Rate: Controlled Lopressor 25 twice daily. Eliquis 5 mg twice daily - Moderate to severe mitral regurgitation - Right hilar mass 4.3 x 3.68 x 3.[address] ROCHA from pulmonary. Bronchoscopy with biopsy done by Dr. ROCHA December 29: Patient will be follow-up outpatient with Dr. ROCHA this . - COPD in a current smoker DuoNeb. Symbicort. Singulair - Hyperlipidemia Zocor - Full code Disposition: Home Past Medical History Past Medical History: Atrial Fibrillation, Heart Failure, Hyperlipidemia Additional Past Medical History / Comment(s): recently diagnosed with A-fib History of Any Multi-Drug Resistant Organisms: None Reported Past Surgical History: No Surgical Hx Reported Additional Past Surgical History / Comment(s): breast biopsies, colonoscopy Past Anesthesia/Blood Transfusion Reactions: No Reported Reaction Past Psychological History: No Psychological Hx Reported Smoking Status: Former smoker Past Alcohol Use History: Daily Past Drug Use History: None Reported Plan - Discharge Summary New Discharge Prescriptions: New Furosemide [Lasix] 40 mg PO DAILY #30 tab Spironolactone [Aldactone] 25 mg PO DAILY #30 tab Losartan [Cozaar] 12.5 mg PO HS #30 tab Continue Montelukast [Singulair] 10 mg PO HS PRN PRN Reason: Allergy Symptoms Apixaban [Eliquis] 5 mg PO BID #60 tab Nicotine 21Mg/24Hr Patch [Habitrol] 1 patch TRANSDERM DAILY #30 patch Atorvastatin [Lipitor] 20 mg PO HS #60 tab Albuterol Sulfate [Albuterol Sulfate Hfa] 1 puff INHALATION RT-Q4H PRN PRN Reason: Shortness Of Breath Budesonide-Formot 160-4.5 Mcg [Symbicort 160-4.5 Mcg Inhaler] 2 puff INHALATION RT-BID #1 each Metoprolol Succinate (ER) [Toprol XL] 50 mg PO DAILY #30 tab Meclizine [Antivert] 12.5 mg PO TID PRN PRN Reason: Vertigo Discharge Medication List Montelukast [Singulair] 10 mg PO HS PRN 12/26/24 [History] Apixaban [Eliquis] 5 mg PO BID #60 tab 12/30/24 [Rx] Atorvastatin [Lipitor] 20 mg PO HS #60 tab 12/30/24 [Rx] Budesonide-Formot 160-4.5 Mcg [Symbicort 160-4.5 Mcg Inhaler] 2 puff INHALATION RT-BID #1 each 12/30/24 [Rx] Metoprolol Succinate (ER) [Toprol XL] 50 mg PO DAILY #30 tab 12/30/24 [Rx] Nicotine 21Mg/24Hr Patch [Habitrol] 1 patch TRANSDERM DAILY #30 patch 12/30/24 [Rx] Albuterol Sulfate [Albuterol Sulfate Hfa] 1 puff INHALATION RT-Q4H PRN 01/03/25 [History] Meclizine [Antivert] 12.5 mg PO TID PRN 01/03/25 [History] Furosemide [Lasix] 40 mg PO DAILY #30 tab 01/04/25 [Rx] Losartan [Cozaar] 12.5 mg PO HS #30 tab 01/04/25 [Rx] Spironolactone [Aldactone] 25 mg PO DAILY #30 tab 01/04/25 [Rx] Follow up Appointment(s)/Referral(s): Julio Cesar Benoit MD [Medical Doctor] - 1 Week Ramakrishna Joseph MD [Primary Care Provider] - 1-2 days Patient Instructions/Handouts: Heart Failure (DC) Activity/Diet/Wound Care/Special Instructions: fluid restrict 2000 cc/day
[2025-01-05] MEDS ORDERED: FUROSEMIDE 40 MG TAB PO SCH (09:00)
== END 2025-01-04 14:33 | disposition home or self-care (01) | DRG 291 ==
LOC: EC 10:09 → 3SCARD 12:20
PROVIDERS: ADMIT Hospitalist; ATTEND Hospitalist
DX: I11.0 Hypertensive heart disease with heart failure (principal); I50.21 Acute systolic (congestive) heart failure; E27.49 Other adrenocortical insufficiency; Z79.01 Long term (current) use of anticoagulants; J44.9 Chronic obstructive pulmonary disease, unspecified; I34.0 Nonrheumatic mitral (valve) insufficiency; I48.19 Other persistent atrial fibrillation; I42.8 Other cardiomyopathies; E78.5 Hyperlipidemia, unspecified; F17.210 Nicotine dependence, cigarettes, uncomplicated; I25.5 Ischemic cardiomyopathy; R91.1 Solitary pulmonary nodule; Z79.51 Long term (current) use of inhaled steroids; Z79.899 Other long term (current) drug therapy
CPT/HCPCS: 36415; 71046; 80048; 80053; 80061; 83036; 83605; 83735; 83880; 84484; 85025; 85610; 85730; 93005; 94640; 96374; 99285

== ENCOUNTER → 2025-01-13 | Outpatient (CLI) | payer BC ==
[2025-01-13 16:24] LABS: NT-Pro-B-Type Natriuretic Pept 4075 pg/mL (0-125)
[2025-01-13 16:25] LABS: BUN/Creat Ratio 23.25 Ratio (12.00-20.00); Blood Urea Nitrogen 18.6 mg/dL (9.0-27.0); Calcium 9.2 mg/dL (8.7-10.3); Carbon Dioxide 29.8 mmol/L (21.6-31.8); Chloride 103 mmol/L (96-109); Glucose 84 mg/dL (70-110); Potassium 4.2 mmol/L (3.5-5.5); Sodium 144 mmol/L (135-145)
== END | disposition home or self-care (01) ==
LOC: LABWHC1 10:43
PROVIDERS: ATTEND Internal Medicine Cardiovascular Disease
DX: I50.22 Chronic systolic (congestive) heart failure (principal)
CPT/HCPCS: 36415; 80048; 83880

== ENCOUNTER → 2025-01-15 | Outpatient (CLI) | payer BC ==
--- NOTE | 2025-01-16 13:17 | PE ---
EXAMINATION TYPE: PET CT fusion skull to thigh DATE OF EXAM: 01/15/2025 CLINICAL INDICATION:Female, 64 years old with history of R91.8 ABN FINDINGS OF LUNG FIELD; TECHNIQUE: Following the intravenous administration of 11.61 mCi of F-18 FDG, whole body images are performed from the skull base to the Mid thigh. Images are reviewed on the computer in the coronal, axial, and sagittal planes. Reconstructed rotating images are created on independent workstation an d reviewed on the computer. A non-contrast CT is performed in conjunction with the PET scan. Glucos e level 99 mg/dL CT DLP: 540 mGycm, Automated exposure control for dose reduction was used. COMPARISON: CT 12/26/2024, PET/CT None, MRI: None FINDINGS: Mediastinal SUV mean is 2.2. Hepatic parenchyma SUV mean is 2.8. SKULL BASE AND NECK: Review low neck focus of uptake between the right internal jugular vein and the thyroid gland. Unclea r if this is a lymph node or a thyroid nodule. Next SUV 6.1. CHEST, MEDIASTINUM, AND HILAR REGION: Suspicious uptake identified; examples include: * Right perihilar mass measuring 39 x 39 mm Max SUV 29.4. * Left lower lobe medial 16 mm pulmonary nodule Max SUV 14.0. * Left upper lobe 6 mm pulmonary nodule Max SUV 0.9. * Mild uptake in the right low paratracheal lymph node max SUV 2.6. ABDOMEN AND PELVIS: Focal uptake within the colon max SUV 4.9. MUSCULOSKELETAL STRUCTURES: No suspicious radiotracer activity. OTHER CT: Right thyroid and remainder nodule. The susceptibility immediately adjacent thyroid gland i s a FDG avid lymph node measuring 5 mm. IMPRESSION: 1. Right perihilar mass with at least one metastatic nodule in left lower lobe. Mild uptake within t he mediastinal lymph nodes right low paratracheal suggestive of early metastatic disease. 2. Focus of uptake near the right internal jugular vein and thyroid gland possibly representing anot her lymph node with metastatic disease versus FDG avid thyroid nodule. 3. Indeterminate uptake within the descending colon which is more focal. Consider colonoscopy if not recently performed. [facility], , 01/16/2025 1:15 PM
== END | disposition home or self-care (01) ==
LOC: RADPETMAIN 13:55
PROVIDERS: ATTEND Internal Medicine Critical Care Medicine
DX: R91.8 Other nonspecific abnormal finding of lung field (principal); K42.9 Umbilical hernia without obstruction or gangrene; K57.30 Diverticulosis of large intestine without perforation or abscess without bleeding; J43.9 Emphysema, unspecified; E04.1 Nontoxic single thyroid nodule
CPT/HCPCS: 78815; A9552

== ENCOUNTER → 2025-03-09 | Outpatient (CLI) | payer BC ==
[2025-03-09 13:56] LABS: INR 0.9 (<1.2); Partial Thromboplastin Time 26.1 sec (22.0-30.0); Prothrombin Time 10.3 sec (10.0-12.5)
[2025-03-09 19:12] LABS: Bilirubin,Urine Negative (Negative); Blood,Urine Negative (Negative); Color,Urine Yellow (Yellow); Ketones,Urine Negative (Negative); Nitrite,Urine Negative (Negative); PH, Urine 5.5; Specific Gravity,Urine 1.006 (1.001-1.030); Urobilinogen,Urine 0.2 E.U./DL
[2025-03-09 19:15] LABS: Bacteria,Urine None Seen (None Seen)
[2025-03-09 19:21] LABS: ALT 18 U/L (8-44); AST 18 U/L (13-35); Albumin 4.2 g/dL (3.8-4.9); Albumin/Globulin Ratio 1.56 Ratio (1.60-3.17); Alkaline Phosphatase 108 U/L (41-126); Anion Gap 12.60 mmol/L (4.00-12.00); BUN/Creat Ratio 18.89 Ratio (12.00-20.00); Blood Urea Nitrogen 17.0 mg/dL (9.0-27.0); Calcium 8.8 mg/dL (8.7-10.3); Carbon Dioxide 27.4 mmol/L (21.6-31.8); Chloride 100 mmol/L (96-109); Globulin 2.7 g/dL (1.6-3.3); Glucose 81 mg/dL (70-110); Potassium 4.6 mmol/L (3.5-5.5); Sodium 140 mmol/L (135-145); Total Protein 6.9 g/dL (6.2-8.2)
[2025-03-09 19:31] LABS: HCT 41.8 % (37.2-46.3); HGB 13.6 g/dL (12.0-15.0); MCH 32.2 pg (27.0-32.0); MCHC 32.5 g/dL (32.0-37.0); MCV 98.8 FL (80.0-97.0); NRBC Per 100 WBC 0 X 10*3/uL (0.00-0.01); Platelet Count 281 X 10*3/uL (140-440); RBC 4.23 X 10*6/uL (4.10-5.20); RDW 14.3 % (11.5-14.5); WBC 7.38 X 10*3/uL (4.50-10.00)
== END | disposition home or self-care (01) ==
LOC: LABWHC1 12:18
PROVIDERS: ATTEND Thoracic Surgery (Cardiothoracic Vascular Surgery)
DX: Z01.812 Encounter for preprocedural laboratory examination (principal); R91.8 Other nonspecific abnormal finding of lung field
CPT/HCPCS: 36415; 80053; 81001; 85027; 85610; 85730; 86850; 86900; 86901

== ENCOUNTER 2025-03-11 07:58 | Inpatient (IN) | payer BC ==
[2025-03-11] MEDS: MIDAZOLAM 2 MG/2 ML VIAL IV ONE (09:30)
[2025-03-11] MEDS: fentaNYL (PF) 50 MCG/ML 2 ML AMP IVP PRN (09:31)
[2025-03-11] MEDS: ONDANSETRON 4 MG/2 ML VIAL IVP ONE (09:32)
[2025-03-11] MEDS: LACTATED RINGERS 1,000 ML IV SCH (09:33)
[2025-03-11] MEDS: HEPARIN SODIUM,PORCINE 5,000 UNIT/ML 1 ML VIAL SQ PRN (09:46)
--- NOTE | 2025-03-11 09:51 | P.ANPRN ---
Procedure Note - Anesthesia - Invasive Line Right Arterial Line Time Out Performed: Yes Date of Procedure: 03/11/25 Time of Procedure: 09:26 Location of Patient: PreOp Preparation: Sterile Prep, Sterile Dressing Arterial Line Location: Radial Ultrasound Used: No Purpose - Visualization and Identification of Vasculature: No Image Stored and Saved: No Narrative: Invasive line placement per sterile protocol utilized.
--- NOTE | 2025-03-11 09:52 | P.ANPRN ---
Procedure Note - Anesthesia - Nerve Block Performed Left Erector Spinae Single Time Out Performed: Yes Date of Procedure: 03/11/25 Procedure Start Time: :40 Procedure Stop Time: :46 Location of Patient: PreOp Indication: Acute Post-Operative Pain, Requested by Surgeon Sedation Type: Sedate with meaningful contact maintained Preparation: Sterile Prep Position: Sitting Needle Types: Pajunk Needle Gauge: 21 Ultrasound used to visualize needle placement: Yes Ultrasound used to observe medication spread: Yes Injectate: 0.5% Ropivacaine (see comment for volume) (30 mL +4 mg dexamethasone) Blood Aspirated: No Pain Paresthesia on Injection Noted: No Resistance on Injection: Normal Image Stored and Saved: Yes Events: Uneventful and Well Tolerated
[2025-03-11] MEDS: IV FLUID CONTINUATION 1,000 ML IV ONE ×3 (09:56→12:05)
[2025-03-11] MEDS ORDERED: PHENYLEPHRINE-0.9% NACL SYG 1,000 MCG/10 ML SYRINGE ONE (10:00)
[2025-03-11] MEDS ORDERED: ROCURONIUM 10 MG/ML (5 ML VIAL) IV ONE (10:00)
[2025-03-11] MEDS ORDERED: DEXAMETHASONE SOD PHOSPHATE 4 MG/ML 1 ML VIAL ONE (10:00)
[2025-03-11] MEDS ORDERED: HYDROmorphone (PF) 1 MG/ML ONE (10:00)
[2025-03-11] MEDS ORDERED: fentaNYL (PF) 50 MCG/ML 2 ML AMP ONE (10:00)
[2025-03-11] MEDS ORDERED: MIDAZOLAM 2 MG/2 ML VIAL ONE (10:00)
[2025-03-11] MEDS ORDERED: SUCCINYLCHOLINE CHLORIDE 200 MG/10 ML VIAL IV ONE (10:00)
[2025-03-11] MEDS ORDERED: GLYCOPYRROLATE 0.2 MG/ML 2 ML VIAL ONE (10:00)
[2025-03-11] MEDS ORDERED: ETOMIDATE 2 MG/ML 10 ML VIAL ONE (10:00)
[2025-03-11] MEDS ORDERED: SUGAMMADEX SODIUM 100 MG/ML SYR IV ONE (10:00)
[2025-03-11] MEDS ORDERED: ROPIVACAINE 5 MG/ML 30 ML VIAL ONE (10:00)
[2025-03-11] MEDS ORDERED: NEOSTIGMINE 1 MG/ML 10 ML VIAL ONE (10:00)
[2025-03-11] MEDS ORDERED: LIDOCAINE 1% INJ 10MG/ML (20 ML MDV) ONE (10:00)
[2025-03-11] MEDS: LIDOCAINE 2%-EPI 1:100,000 20 ML VIAL SQ ONE (11:01)
[2025-03-11] MEDS: BUPIVACAINE (PF) 0.25% 30 ML VIAL SQ ONE (11:01)
--- NOTE | 2025-03-11 11:37 | P.OP ---
Date of Procedure: 03/11/25 Preoperative Diagnosis: Right upper hilar and left lower medial PET positive lung nodules Procedure(s) Performed: Right thoracoscopy with single level intercostal nerve block and biopsy of left lower lobe nodule Implants: None Anesthesia: JANNY Surgeon: Unruly Major Estimated Blood Loss (ml): 5 Pathology: other (Left lower lobe lesion excised and sent for permanent section as well as frozen) Condition: stable Disposition: PACU Indications for Procedure: Patient with 2 large PET positive lesions status post endobronchial biopsy on the right hilar lesion negative. Operative Findings: Excised lesion with a positive margin with frozen section pathology consistent with non-small cell lung cancer Description of Procedure: After consent was obtained, the patient was brought to the operating room where she underwent general by dual-lumen endotracheal tube anesthesia with bronchoscopic guidance. She was then positioned in the right lateral decubitus position and the table was flexed to open the rib spaces. She was positioned on a beanbag and the beanbag was evacuated to hold her in position. She was fixed to the bed and prepped and draped in sterile fashion. A timeout was then observed whereby the patient, the procedure, the side, the site, staff in the room, antibiotic delivery and films up and available in the room were all confirmed. We then proceeded to alexys an injector in the same rib space approximately #8 for 3 separate small incisions. Her mid incision was marked and injected with local anesthetic she was then incised with a 15 blade knife approximately 1 cm in length. We gained access to the chest with a blunt clamp so as not to injure the lung we then placed a 5 mm trocar sheath noncutting and placed our camera through that to get a view of the inside of the chest. The lung was poorly deflated and we checked the tube eventually being able to get reasonable control of the 1 lung ventilation. We are then able to use a Ethel clamp through a counterincision that was placed after using local anesthetic to place an intercostal nerve block we placed a second counterincision under direct vision the scope was well and once we identified the lesion, we were able to grasp it with a Ethel clamp around the base and then use a 5 mm grasper to hold the lung adjacent to it in order to pass a 60 mm stapler and clamp underneath the mass. We were able to divide the mass from the lung using 2 f irings of the 60 mm blue load stapler and passed that lesion to pathology for frozen section. We then placed a 20 Bulgarian straight thoracic chest tube anteriorly through the anteriormost incision site and fixed into place with a 0 Ethibond suture. The incisions were all closed deep with a buried interrupted 2-0 Vicryl suture and the skin with a buried interrupted 4-0 Monocryl suture. She was dressed with skin glue and then 4 x 4's and tape around the chest tube exit site. The chest tube was attached to a Pleur-evac container and the patient was able to be rolled supine, extubated and taken to PACU in good condition. The report from pathology was of a non-small cell carcinoma. The results were discussed with patient's in the waiting room.
[2025-03-11] MEDS: HYDROmorphone 0.5 MG/0.5 ML SYRINGE IVP PRN (12:03)
[2025-03-11] MEDS: METOPROLOL TARTRATE 5 MG/5 ML VIAL IVP PRN (12:12)
--- NOTE | 2025-03-11 12:17 | XR ---
EXAMINATION TYPE: XR chest 1V portable DATE OF EXAM: 03/11/2025 12:09 PM COMPARISON: 01/03/2025 CLINICAL INDICATION: Female, 64 years old with history of post lung biopsy, , FINDINGS: Heart mildly enlarged. Hyperinflation. Mild interstitial density. Left-sided chest tube in place. No sizable pneumothorax identified. Known underlying right hilar mass but with increased airspace opacit y contiguously extending into the right mid and lower lung. IMPRESSION: 1. Mild cardiomegaly and COPD. Possible pulmonary vascular congestion. 2. Known right hilar mass though with new opacity now contiguously extending into the right mid and l ower lung, possible biopsy associated contusion versus postobstructive pneumonitis. 3. Left-sided chest tube present. No appreciable pneumothorax. [facility], , 03/11/2025 12:15 PM
[2025-03-11] MEDS ORDERED: ALBUTEROL NEBULIZED 2.5 MG/3 ML INHALATION PRN (14:41)
[2025-03-11] MEDS ORDERED: IPRATROPIUM-ALBUTEROL 3 ML NEB IH PRN (14:41)
[2025-03-11] MEDS ORDERED: ACETAMINOPHEN TAB 325 MG TAB PO PRN (14:41)
[2025-03-11] MEDS ORDERED: MONTELUKAST 10 MG TAB PO PRN (14:41)
[2025-03-11] MEDS ORDERED: MECLIZINE 12.5 MG TAB PO PRN (14:41)
[2025-03-11] MEDS: DEXTROSE 5%-0.45% NACL 1,000 ML IV SCH (15:14)
[2025-03-11] MEDS: KETOROLAC 15 MG/ML 1 ML VIAL IVP SCH (15:14)
[2025-03-11] MEDS: ONDANSETRON 4 MG/2 ML VIAL IVP PRN (15:22)
[2025-03-11] MEDS: IPRATROPIUM-ALBUTEROL 3 ML NEB IH SCH (16:09)
[2025-03-11] MEDS: DEXAMETHASONE SOD PHOSPHATE 4 MG/ML 1 ML VIAL IV ONE (16:53)
[2025-03-11] MEDS: HEPARIN SODIUM,PORCINE 5,000 UNIT/ML 1 ML VIAL SQ SCH (17:45)
[2025-03-11] MEDS: SYMBICORT 160-4.5 MCG INHALER INHALATION SCH (20:10)
[2025-03-11] MEDS: SENNOSIDES-DOCUSATE SODIUM 1 EACH TAB PO SCH (21:54)
[2025-03-11] MEDS: LOSARTAN 25 MG TAB PO SCH (21:54)
[2025-03-11] MEDS: ATORVASTATIN 20 MG TAB PO SCH (21:54)
[2025-03-12 07:07] LABS: Basophils # (A) 0.02 10*3/uL (0.00-0.10); Basophils % (A) 0.2 %; Eosinophils # (A) 0.00 10*3/uL (0.04-0.35); Eosinophils % (A) 0.0 %; HCT 37.0 % (37.2-46.3); HGB 12.3 g/dL (12.0-15.0); Lymphocytes # (A) 1.41 10*3/uL (0.90-5.00); Lymphocytes % (A) 16.4 %; MCH 32.4 pg (27.0-32.0); MCHC 33.2 g/dL (32.0-37.0); MCV 97.4 fL (80.0-97.0); Monocytes # (A) 0.67 10*3/uL (0.20-1.00); Monocytes % (A) 7.8 %; Neutrophils # (A) 6.48 10*3/uL (1.80-7.70); Neutrophils % (A) 75.3 %; Platelet Count 237 10*3/uL (140-440); RBC 3.80 10*6/uL (4.10-5.20); RDW 14.0 % (11.5-14.5); WBC 8.61 10*3/uL (4.50-10.00)
[2025-03-12 07:25] LABS: African American GFR (CKD) 72 (>60 ml/min/1.73 sqM); Anion Gap 9 mmol/L; Blood Urea Nitrogen 22 mg/dL (7-17); Calcium 8.9 mg/dL (8.4-10.2); Carbon Dioxide 26 mmol/L (22-30); Chloride 99 mmol/L (98-107); Glucose 120 mg/dL (74-99); Non-African American GFR(CKD) 63 (>60 ml/min/1.73 sqM); Potassium 4.6 mmol/L (3.5-5.1); Sodium 134 mmol/L (137-145)
--- NOTE | 2025-03-12 07:41 | XR ---
EXAMINATION TYPE: XR chest 2V DATE OF EXAM: 03/12/2025 6:57 AM COMPARISON: Chest radiographs from 03/11/2025 CLINICAL INDICATION: Female, 64 years old with history of post lung biopsy; [facility] TECHNIQUE: XR chest 2V Frontal and lateral views of the chest. FINDINGS: Lungs/Pleura: Right perihilar measurements present. Finding the diaphragm with increased lucency dmitry g apices. There is no evidence of pleural effusion, focal consolidation, or pneumothorax. Pulmonary vascularity: Unremarkable. Heart/mediastinum: Cardiomediastinal silhouette is enlarged. Musculoskeletal: No acute osseous pathology. Left-sided chest tube in place with trace pneumothorax IMPRESSION: 1. Mild cardiomegaly and COPD. Possible pulmonary vascular congestion. 2. Known right hilar mass though with new opacity now contiguously extending into the right mid and l ower lung, possible biopsy associated contusion versus postobstructive pneumonitis. 3. Left-sided chest tube present. Trace pneumothorax. [facility], , 03/12/2025 7:39 AM
[2025-03-12] MEDS: PANTOPRAZOLE 40 MG TABLET PO SCH (08:12)
[2025-03-12] MEDS: FUROSEMIDE 40 MG TAB PO SCH (08:12)
[2025-03-12] MEDS: SPIRONOLACTONE 25 MG TAB PO SCH (08:12)
[2025-03-12] MEDS: APIXABAN 5 MG TAB PO SCH (08:12)
[2025-03-12] MEDS: METOPROLOL SUCCINATE (ER) 100 MG TAB.ER.24H PO SCH (08:12)
--- NOTE | 2025-03-12 09:38 | P.DS ---
Providers Date of admission: 03/11/25 07:58 Expected date of discharge: 03/12/25 Attending physician: Unruly Major MD Primary care physician: [facility] Course: FINAL DIAGNOSIS: Right upper hilar and left lower medial PET positive lung nodules, status post left thoracoscopy with biopsy of left lower lobe nodule, frozen section pathology consistent with nonsmall cell lung cancer Hypoxia requiring oxygen at discharge due to lung cancer History of paroxysmal atrial fibrillation on [facility] outpatient Moderate to severe mitral valve regurgitation Hypertension Hyperlipidemia Chronic obstructive pulmonary disease Heart failure with reduced ejection fraction, EF 30% Previous tobacco abuse, quit smoking in December 2024 PRINCIPAL PROCEDURE: 1. Left thoracoscopy with single level intercostal nerve block and biopsy of left lower lobe nodule HISTORY OF PRESENT ILLNESS: This is a 64-year-old female patient who follows on an outpatient basis with Dr. Ramakrishna Joseph for her primary care and with Dr. Ismael Lerner for her pulmonary care. In December 2024 the patient had a hospitalization for worsening shortness of breath and upper respiratory symptoms. During her hospitalization in December she was subsequently found to have a right lung mass in the right hilum and a left lower lobe pulmonary nodule. The right hilar mass measured 4.3 x 3.8 x 3.7 cm. On December 29, 2024 due to the incidental findings of the right hilar mass and left lower lobe pulmonary nodule the patient underwent a bronchoscopy, airway examination, therapeutic lavage and transbronchial needle aspiration, biopsies in the area of the medial wall of the right mainstem by Dr. Lerner. Unfortunately at that time her pathology was nondiagnostic. Subsequently, the patient was referred to Dr. Major from thoracic surgery for further evaluation and treatment recommendations. The patient also underwent PET CT scan showing 2 primary lesions with 1 in the hilum of the right upper lobe and the other in the medial posterior left lower lobe. Dr. Major discussed treatment options with the patient including left thoracoscopy with wedge resection biopsy of the left lower lobe. Risks and benefits of the surgical procedure were discussed with the patient and knowing and understanding the risks the patient wished to proceed with the surgical option. HOSPITAL COURSE: The patient was brought to the hospital on 03/11/25, taken to the preoperative area, prepared in the usual fashion, and subsequently taken to the operating room where Dr. Major performed a left thoracoscopy with single level intercostal nerve block and biopsy of left lower lobe nodule. Upon complet ion of surgery the patient was extubated and taken to the recovery room with subsequent admission to 3 S. cardiac stepdown unit for further hemodynamic monitoring. There was no air leak on the chest tube on POD #1 which was subsequently removed without incident. Her oxygen was titrated down although she continued to need oxygen at discharge, she was tolerating oral diet, her pain was controlled, and she was ready to be discharged to home on postoperative day #1. She received written and verbal instruction regarding her medications, activity restrictions, signs and symptoms requiring physician notification, and follow-up appointments. Patient Condition at Discharge: Stable Plan - Discharge Summary Discharge Rx Participant: No New Discharge Prescriptions: New Acetaminophen Tab [Tylenol] 650 mg PO Q4HR PRN tab PRN Reason: Mild To Moderate Pain (1 - 6) Sennosides-Docusate Sodium [Senokot-S] 2 each PO HS PRN tab PRN Reason: Constipation Continue Montelukast [Singulair] 10 mg PO HS PRN PRN Reason: Allergy Symptoms Apixaban [Eliquis] 5 mg PO BID #60 tab Atorvastatin [Lipitor] 20 mg PO HS #60 tab Albuterol Sulfate [Albuterol Sulfate Hfa] 1 puff INHALATION RT-Q4H PRN PRN Reason: Shortness Of Breath Furosemide [Lasix] 40 mg PO DAILY #30 tab Metoprolol Succinate (ER) [Toprol XL] 100 mg PO DAILY Budesonide-Formot 160-4.5 Mcg [Symbicort 160-4.5 Mcg Inhaler] 2 puff INHALATION RT-BID #1 each Meclizine [Antivert] 12.5 mg PO TID PRN PRN Reason: Vertigo Spironolactone [Aldactone] 25 mg PO DAILY #30 tab Losartan [Cozaar] 12.5 mg PO HS #30 tab Discharge Medication List Montelukast [Singulair] 10 mg PO HS PRN 12/26/24 [History] Apixaban [Eliquis] 5 mg PO BID #60 tab 12/30/24 [Rx] Atorvastatin [Lipitor] 20 mg PO HS #60 tab 12/30/24 [Rx] Budesonide-Formot 160-4.5 Mcg [Symbicort 160-4.5 Mcg Inhaler] 2 puff INHALATION RT-BID #1 each 12/30/24 [Rx] Albuterol Sulfate [Albuterol Sulfate Hfa] 1 puff INHALATION RT-Q4H PRN 01/03/25 [History] Meclizine [Antivert] 12.5 mg PO TID PRN 01/03/25 [History] Furosemide [Lasix] 40 mg PO DAILY #30 tab 01/04/25 [Rx] Losartan [Cozaar] 12.5 mg PO HS #30 tab 01/04/25 [Rx] Spironolactone [Aldactone] 25 mg PO DAILY #30 tab 01/04/25 [Rx] Metoprolol Succinate (ER) [Toprol XL] 100 mg PO DAILY 03/09/25 [History] Acetaminophen Tab [Tylenol] 650 mg PO Q4HR PRN tab 03/12/25 [Rx] Sennosides-Docusate Sodium [Senokot-S] 2 each PO HS PRN tab 03/12/25 [Rx] Follow up Appointment(s)/Referral(s): Unruly Major MD [STAFF PHYSICIAN] - 03/17/25 9:30 am (You will be seen in the surgeon's office behind the hospital in [facility], [address] Office phone number is . You will see Dina Decker NP for incision check) Ismael Lerner DO [Doctor of Osteopathic Medicine] - 03/19/25 2:30 pm Day Key MD [Primary Care Provider] - As Needed Activity/Diet/Wound Care/Special Instructions: DISCHARGE INSTRUCTIONS: 1. No driving for 2 weeks, or until physician gives their ok. 2. No lifting, pushing, or pulling more than 10 pounds for 2 weeks. The physician will advise of any restriction changes. 3. Continue pain control per as needed orders. Alternate acetaminophen (Tylenol) and ibuprofen (Motrin/Advil) for pain. 4. Continue with incentive spirometry and splinting until otherwise directed by the physician. 5. Leave chest tube dressing for 48 hours. After that, remove all dressings and shower daily. 6. Routine incision care. No powders, lotions, ointments on incisions. 7. Please call surgeon/WIND TURBINE DESIGN ENGINEER for temp greater than 101 F or purulent drainage from incisions. 8. Smoking cessation counseling and program information provided. Quitting smoking is the most important step you can take to improve your health. For additional information and assistance to quit smoking, please call the [place] tobacco quit line (6-728-NXZRNOW/ ) or online: [email or web address]://www.[place].gov/[facility]/jdvb-hb-[email or web address]-to-qu it-tobacco Discharge Disposition: HOME SELF-CARE
--- NOTE | 2025-03-12 10:15 | XR ---
EXAMINATION TYPE: XR chest 1V portable DATE OF EXAM: 03/12/2025 9:45 AM COMPARISON: Chest radiographs from same day CLINICAL INDICATION: Female, 64 years old with history of post chest tube removal; [facility] TECHNIQUE: XR chest 1V portable Frontal view of the chest. FINDINGS: Lungs/Pleura: Right perihilar mass remains unchanged. There is no evidence of pleural effusion, focal consolidation, or pneumothorax. Pulmonary vascularity: Unremarkable. Heart/mediastinum: Cardiomediastinal silhouette is unremarkable. Musculoskeletal: No acute osseous pathology. Other findings: None Lines/Tubes: left orchiectomy tube removed now with moderate to large pneumothorax. IMPRESSION: 1. Removal of thoracotomy tube now with moderate to large left pneumothorax. 2. There remains right perihilar mass. A Red level critical message alert has been initiated for Dina Decker via the [employer] Results System on 03/12/2025 10:13 AM. This message alert has been sent to Dina Decker via the pref erences provided by the clinician for the receipt of Radiology Critical Findings. Message ID [id number]. [facility], , 03/12/2025 10:13 AM
[2025-03-12] MEDS: LIDOCAINE 2% INJ 20 MG/ML (10 ML MDV) SQ ONE (12:25)
--- NOTE | 2025-03-12 13:25 | XR ---
EXAMINATION TYPE: XR chest 1V portable DATE OF EXAM: 03/12/2025 1:12 PM COMPARISON: Chest radiographs from 03/12/2025 CLINICAL INDICATION: Female, 64 years old with history of L thoravent placed; TECHNIQUE: XR chest 1V portable Frontal view of the chest. FINDINGS: Lungs/Pleura: Right perihilar mass remains present. Pulmonary vascular congestion is present. There i s no evidence of pleural effusion, focal consolidation, or pneumothorax. Pulmonary vascularity: Pulmonary vascular congestion. Heart/mediastinum: Cardiomediastinal silhouette is unremarkable. Musculoskeletal: No acute osseous pathology. Other findings: None Lines/Tubes: Visualized has been placed there is reduction pneumothorax now trace. IMPRESSION: Left thoracotomy device now in place with trace left pneumothorax. Remains right perihilar mass with pulmonary vessel congestion. [facility], , 03/12/2025 1:23 PM
[2025-03-12] MEDS: traMADol 50 MG TAB PO PRN (15:40)
--- NOTE | 2025-03-12 16:47 | P.PN ---
Subjective Progress Note Date: 03/12/25 Principal diagnosis: Right upper hilar and left lower medial PET positive lung nodules. Past medical history paroxysmal atrial fibrillation on Eliquis as an outpatient, moderate to severe mitral valve regurgitation, hypertension, hyperlipidemia, chronic obstructive pulmonary disease, heart failure with reduced ejection fraction, ejection fraction of 30%, previous tobacco abuse, quit smoking in December 2024. POD #1 Right thoracoscopy with single level intercostal nerve block and biopsy of left lower lobe nodule. The patient was seen and examined in follow-up today March 12, 2025 at her bedside on the third floor cardiac stepdown unit. She is awake, alert, oriented x 3 and is in no acute apparent distress. Denies any complaints of shortness of breath or surgical type pain at this time. Oxygen saturations are 98% on 3 L nasal cannula, and she is able to achieve 1000 mL on her incentive spirometry with encouragement. Left pleural chest tube remains in place on waterseal. No airleak is present. Draining scant thin serosanguineous drainage with 20 mL output since surgery. Chest x-ray and laboratory results reviewed. Objective - Vital Signs Vital signs: Vital Signs Temp 98.9 F 03/12/25 16:00 Pulse 98 03/12/25 16:12 Resp 16 03/12/25 16:00 BP 142/71 03/12/25 16:00 Pulse Ox 95 03/12/25 16:00 FiO2 Intake & Output 03/11/25 03/12/25 03/12/25 18:59 06:59 18:59 Intake Total 2490 20 260 Output Total 305 21 650 Balance 2185 -1 -390 Weight 67.1 kg 70.1 kg Intake: IV 1850 20 20 Invasive Line 2 20 20 Intake, IV Titration 200 Amount Dextrose 5%-0.45% NaCl 1, 150 000 ml @ 50 mls/hr IV . Q20H ADDIE Rx#:[id number] ceFAZolin 2 gm In Sodium 50 Chloride 0.9% 50 ml @ 100 mls/hr IVPB Q8H ADDIE Rx#: [id number] Oral 440 240 Output: Drainage 21 Left Chest 21 Urine 200 650 Emesis 100 Estimated Blood Loss 5 Other: Voiding Method Toilet Toilet # Voids 4 - Exam CONSTITUTIONAL: Appears comfortable, cooperative, no acute distress RESPIRATORY: Lungs sounds diminished bilaterally. Respirations symmetrical, nonlabored. Currently on 3 L nasal cannula with oxygen saturation 98%. Able to achieve 1000 mL on incentive spirometry. Strong cough. CARDIOVASCULAR: S1, S2 present. Regular rate and rhythm, sinus rhythm on telemetry. Palpable peripheral pulses bilaterally. No edema present. No calf pain or tenderness noted. SCDs present. GASTROINTESTINAL: Abdomen soft, nontender, nondistended. Active bowel sounds present 4 quadrants. Tolerating diet. GENITOURINARY: Continues to void clear, yellow urine. INTEGUMENTARY: Skin is warm and dry with evidence of good perfusion. Left chest thoracic incisions well approximated and covered with dry intact dressing. NEUROLOGIC: Cranial nerves II through XII intact. No focal deficit. MUSKULOSKELETAL: Able to move all extremities, strength equal bilaterally, gait normal. PSYCHIATRIC: Alert and oriented to person place and time, appropriate affect, intact judgment and insight. INVASIVE LINES AND TUBES: Left pleural chest tube present to waterseal, no air leaks present. Left pleural chest tube scant thin serosanguineous drainage with 20 mL output since surgery. - Allied health notes Allied health notes reviewed: nursing - Labs CBC & Chem 7: 03/12/25 05:35 03/12/25 05:35 Labs: Abnormal Lab Results - Last 24 Hours (Table) 03/12/25 03/12/25 Range/Units 05:35 05:35 RBC 3.80 L (4.10-5.20) 10*6/uL Hct 37.0 L (37.2-46.3) % MCV 97.4 H (80.0-97.0) fL MCH 32.4 H (27.0-32.0) pg Eosinophils # 0.00 L (0.04-0.35) 10*3/uL Sodium 134 L (137-145) mmol/L BUN 22 H (7-17) mg/dL Glucose 120 H (74-99) mg/dL - Imaging and Cardiology Chest x-ray: report reviewed, image reviewed Assessment and Plan Assessment: Right upper hilar and left lower medial PET positive lung nodules, status post l eft thoracoscopy with biopsy of left lower lobe nodule, frozen section pathology consistent with nonsmall cell lung cancer History of paroxysmal atrial fibrillation on [facility] outpatient Moderate to severe mitral valve regurgitation Hypertension Hyperlipidemia Chronic obstructive pulmonary disease Heart failure with reduced ejection fraction, EF 30% Previous tobacco abuse, quit smoking in December 2024 Plan: We remove her left pleural chest tube today, repeat a chest x-ray in a couple of hours, if her chest x-ray shows no pneumothorax we will discharge her home today. Encouraged use of incentive spirometry 10 times every hour while awake. Continue to monitor daily chest x-rays. Out of bed for all meals. Encourage ambulation. Continue pain medication regimen as ordered. Surgical pathology results remain pending. More recommendations to follow based on patient's clinical course. Time with Patient: Less than 30
[2025-03-12] MEDS: MELATONIN 3 MG TABLET PO SCH (20:16)
--- NOTE | 2025-03-13 07:12 | XR ---
EXAMINATION TYPE: XR chest 1V portable DATE OF EXAM: 03/13/2025 7:04 AM COMPARISON: Multiple radiographs, with the most recent on 03/12/2025, PET/CT 01/15/2025 TECHNIQUE: XR chest 1V portable Portable AP radiograph of the chest. CLINICAL INDICATION:Female, 64 years old with history of postop Thoravent placement; FINDINGS: Lungs/Pleura: Right perihilar mass remains present with surrounding right basilar opacities. Addition al left basilar patchy consolidative opacities. Small bilateral pleural effusions. Unchanged trace le ft apical pneumothorax. Diffuse interstitial prominence. Heart/mediastinum: Cardiomediastinal silhouette is enlarged. Musculoskeletal: No acute osseous pathology. Other findings: None Lines/Tubes: Left-sided Thora vent is in stable position. IMPRESSION: 1. Left thoracotomy device now in place with unchanged trace left apical pneumothorax. 2. Right perihilar mass redemonstrated with bibasilar consolidative opacities redemonstrated. Diffus e interstitial prominence with small bilateral pleural effusions. [facility], , 03/13/2025 7:09 AM
--- NOTE | 2025-03-13 07:56 | P.PN ---
Subjective Progress Note Date: 03/13/25 Principal diagnosis: Right upper hilar and left lower medial PET positive lung nodules. Past medical history paroxysmal atrial fibrillation on Eliquis as an outpatient, moderate to severe mitral valve regurgitation, hypertension, hyperlipidemia, chronic obstructive pulmonary disease, heart failure with reduced ejection fraction, ejection fraction of 30%, previous tobacco abuse, quit smoking in December 2024. POD #2 left thoracoscopy with single level intercostal nerve block and biopsy of left lower lobe nodule. Status post day #1 placement of left Thoravent by Dr. Carla Nina, for left pneumothorax status post VATS lung biopsy and chest tube removal, unexpected The patient was seen and examined in follow-up today at her bedside on the third floor cardiac stepdown unit. She is currently sitting up in bed, eating her breakfast, is awake, alert and oriented x 3. She is complaining of some surgical type pain to her left chest. She reports that the current pain medica tion regimen is controlling her pain. Oxygen saturations are 95% on room air and she is achieving 1000 mL on her incentive spirometry with encouragement. Left Thoravent chest tube remains in place with no airleak present. Remote telemetry is showing atrial fibrillation heart rate 126 bpm. Chest x-ray results reviewed. Objective - Vital Signs Vital signs: Vital Signs Temp 97.6 F 03/13/25 03:23 Pulse 85 03/13/25 03:23 Resp 16 03/13/25 03:23 BP 133/92 03/13/25 03:23 Pulse Ox 95 03/13/25 03:23 FiO2 Intake & Output 03/12/25 03/13/25 03/13/25 18:59 06:59 18:59 Intake Total 740 20 Output Total 2049 950 Balance -1310 -930 Weight 69.5 kg Intake: IV 20 20 Invasive Line 2 20 20 Oral 720 Output: Urine 2049 950 Other: Voiding Method Toilet Toilet # Voids 2 - Exam CONSTITUTIONAL: Appears comfortable, cooperative, no acute distress RESPIRATORY: Lungs sounds diminished bilaterally. Respirations symmetrical, nonlabored. Currently on 3 L nasal cannula with oxygen saturation 95%. Room air oxygen saturations are 90%. Able to achieve 1000 mL on her incentive spirometry. Strong cough. CARDIOVASCULAR: S1, S2 present. Irregular rate and rhythm, atrial fibrillation on telemetry with heart rate of 126 bpm. Palpable peripheral pulses bilaterally. No edema present. No calf pain or tenderness noted. SCDs present. GASTROINTESTINAL: Abdomen soft, nontender, nondistended. Active bowel sounds present 4 quadrants. Tolerating diet. GENITOURINARY: Continues to void clear, yellow urine. INTEGUMENTARY: Skin is warm and dry with evidence of good perfusion. Left chest thoracic incisions well approximated and covered with dry intact dressing. NEUROLOGIC: Cranial nerves II through XII intact. No focal deficit. MUSKULOSKELETAL: Able to move all extremities, strength equal bilaterally, gait normal. PSYCHIATRIC: Alert and oriented to person place and time, appropriate affect, intact judgment and insight. INVASIVE LINES AND TUBES: Left left Thoravent chest tube in place, no airleak present. - Labs CBC & Chem 7: 03/12/25 05:35 03/12/25 05:35 - Imaging and Cardiology Chest x-ray: report reviewed, image reviewed Assessment and Plan Assessment: Right upper hilar and left lower medial PET positive lung nodules, status post left thoracoscopy with biopsy of left lower lobe nodule, frozen section pathology consistent with nonsmall cell lung cancer Left pneumothorax status post VATS lung biopsy and chest tube removal, status post insertion of 11 Portuguese Thoravent History of paroxysmal atrial fibrillation on [facility] outpatient Moderate to severe mitral valve regurgitation Hypertension Hyperlipidemia Chronic obstructive pulmonary disease Heart failure with reduced ejection fraction, EF 30% Previous tobacco abuse, quit smoking in December 2024 Plan: Keep left Thoravent chest tube in place. Continue to monitor daily chest x-rays for pneumothorax resolution. Encouraged use of incentive spirometry 10 times every hour while awake. Continue to monitor daily chest x-rays. Out of bed for all meals. Encourage ambulation. Continue pain medication regimen as ordered. Surgical pathology results remain pending. Consult cardiology for atrial fibrillation management. More recommendations to follow based on patient's clinical course. Time with Patient: Greater than 30
--- NOTE | 2025-03-13 08:37 | P.PCN ---
Date of Procedure: 03/12/25 Description of Procedure: Date of Procedure: 03/12/25 Preoperative Diagnosis: Left pneumothorax status post VATS lung biopsy and chest tube removal Postoperative Diagnosis: Same Procedure(s) Performed: Insertion of an 11 F Thoravent Implants: 11f Thora vent Anesthesia: local Surgeon: Carla Nina Condition: stable Indications for Procedure: Patient had a lung biopsy yesterday and had a chest tube. This morning there was no airleak in the chest tube was removed. However the post removal chest x-ray showed evidence of at least 30% left-sided apical pneumothorax. Patient also with worsening respiratory status. Patient received Eliquis this morning however in view of pros and cons were proceeding with insertion of an 11 Ukrainian Thora vent. The risk of the procedure was discussed with her she understood that and agreed to proceed Operative Findings: Left pneumothorax Description of Procedure: The left pectoralis area was prepped and draped using ChloraPrep. We used 2% lidocaine and secured local anesthesia at the level of the midclavicular line second intercostal space. A small incision was made and I confirmed the pneumothorax with a small needle. We proceeded at inserting an 11 Ukrainian Thora vent hugging the superior border of the inferior rib of the second costal space and got into the left pleural space without difficulty. Air was aspirated from the lungs and the Thora vent was capped. The chest x-ray was ordered. Patient tolerated procedure well This procedure was completed by Dr. Carla Nina
--- NOTE | 2025-03-13 12:19 | P.CRDCN ---
History of Present Illness History of present illness: HISTORY OF PRESENT ILLNESS: This is a 64-year-old female with a past medical history significant for recently diagnosed atrial fibrillation, cardiomyopathy, hypertension, hyperlipidemia, lung mass with suspected cancer. Patient follows in the office with Dr. Carrlol. We have been asked to see the patient in consultation for atrial fibrillation. Patient examined at the bedside. Patient is admitted to the hospital secondary to lung mass. She underwent VATS procedure with biopsy. Patient was found to have left pneumothorax after VATS procedure and had Thora vent placed. Patient currently denies any chest pain or pressure. She denies any shortness of breath at the time of examination. She remains in atrial fibrillation with a heart rate between [id number]. DIAGNOSTICS: - EKG not available at the time of this dictation - Chest xray left thoracotomy device now in place with unchanged trace left apical pneumothorax. Right perihilar mass redemonstrated with bibasilar consolidative opacities. - Laboratory data: WBC 8.61. Hemoglobin 12.3. Platelet count 237. Sodium 134. Potassium 4.6. BUN 22. Creatinine 0.97. - Current home cardiac medications include Aldactone 25 mg daily, metoprolol succinate 100 mg daily, losartan 12.5 mg at night, Lasix 40 mg daily, Lipitor 20 mg at night, Eliquis 5 mg twice a day. - Most recent echocardiogram obtained in December 2024 revealed ejection fraction 30%, moderate to severe MR, global decrease in contractility - Patient underwent nuclear stress testing in January 2025 with no evidence of acute ischemia. EF 40% - Cardiac catheterization history: Patient denies REVIEW OF SYSTEMS: At the time of my exam: CONSTITUTIONAL: Denies fever or chills. HEENT: Denies blurred vision, vision changes, or eye pain. Denies hemoptysis CARDIOVASCULAR: Denies chest pain. Denies orthopnea. Denies PND. Denies palpitations RESPIRATORY: Denies shortness of breath. GASTROINTESTINAL: Denies abdominal pain. Denies nausea or vomiting. HEMATOLOGIC: Denies bleeding disorders. GENITOURINARY: Denies any blood in urine. SKIN: Denies pruitis. Denies rash. PHYSICAL EXAM: VITAL SIGNS: Reviewed. GENERAL: Well-developed in no acute distress. HEENT: Head is normocephalic. Pupils are equal, round. Sclerae anicteric. Mucous membranes of the mouth are moist. Neck supple. No JVD or thyromegaly LUNGS: Respirations even and unlabored. Lungs essentially clear to auscultation bilaterally. Left Thora vent noted. HEART: Tachycardic. Irregular rate and rhythm. S1 and S2 heard. ABDOMEN: Soft. Nondistended. Nontender. EXTREMITIES: Normal range of motion. No clubbing or cyanosis. Peripheral pulses intact. No lower extremity edema NEUROLOGIC: Awake and alert. Oriented x 3. ASSESSMENT: Right upper hilar and left lower medial lung nodules, status post VATS with biopsy Left pneumothorax, status post Thora vent Persistent atrial fibrillation, recently diagnosed in December Cardiomyopathy, 30%, suspected to be nonischemic Hypertension Hyperlipidemia Former nicotine dependence PLAN: No need to repeat echocardiogram as this was performed in December 2024 Continue anticoagulation with Eliquis Continue metoprolol succinate 100 mg in the morning. Add an additional dose of 50 mg at night Continue telemetry monitoring Further recommendations pending patient course Nurse practitioner note has been reviewed by physician. Signing provider agrees with the documented findings, assessment, and plan of care documented by CHUTE [employer]ILDER as a scribe. Past Medical History Past Medical History: Atrial Fibrillation, Heart Failure, Hyperlipidemia, Pneumonia Additional Past Medical History / Comment(s): recently diagnosed with A-fib, nodules in lungs,pluerisy in past, History of Any Multi-Drug Resistant Organisms: None Reported Past Surgical History: Breast Surgery Additional Past Surgical History / Comment(s): breast biopsies, colonoscopy Past Anesthesia/Blood Transfusion Reactions: No Reported Reaction Smoking Status: Former smoker - Past Family History Sister(s) Family Medical History: Cancer Additional Family Medical History / Comment(s): breast Mother Family Medical History: Cancer Additional Family Medical History / Comment(s): breast Medications and Allergies Home Medications Medication Instructions Recorded Confirmed Type Montelukast [Singulair] 10 mg PO HS PRN 12/26/24 03/09/25 History Apixaban [Eliquis] 5 mg PO BID #60 tab 12/30/24 03/09/25 Rx Atorvastatin [Lipitor] 20 mg PO HS #60 tab 12/30/24 03/09/25 Rx Budesonide-Formot 160-4.5 Mcg 2 puff INHALATION RT-BID #1 each 12/30/24 03/09/25 Rx [Symbicort 160-4.5 Mcg Inhaler] Albuterol Sulfate [Albuterol 1 puff INHALATION RT-Q4H PRN 01/03/25 03/09/25 History Sulfate Hfa] Meclizine [Antivert] 12.5 mg PO TID PRN 01/03/25 03/09/25 History Furosemide [Lasix] 40 mg PO DAILY #30 tab 01/04/25 03/09/25 Rx Losartan [Cozaar] 12.5 mg PO HS #30 tab 01/04/25 03/09/25 Rx Spironolactone [Aldactone] 25 mg PO DAILY #30 tab 01/04/25 03/09/25 Rx Metoprolol Succinate (ER) [Toprol 100 mg PO DAILY 03/09/25 03/09/25 History XL] Acetaminophen Tab [Tylenol] 650 mg PO Q4HR PRN tab 03/12/25 Rx Sennosides-Docusate Sodium 2 each PO HS PRN tab 03/12/25 Rx [Senokot-S] Allergies Allergy/AdvReac Type Severity Reaction Status Date / Time amoxicillin [From Augmentin] Allergy Nausea & Verified 03/11/25 08:41 Vomiting clavulanic acid Allergy Nausea & Verified 03/11/25 08:41 [From Augmentin] Vomiting alendronate sodium AdvReac Diarrhea Verified 03/11/25 08:41 Physical Exam Vitals: Vital Signs Temp Pulse Pulse Resp BP Pulse Ox 03/13/25 08:17 99 18 03/13/25 08:14 98.6 F 95 16 128/79 96 03/13/25 08:04 118 H 18 90 L 03/13/25 03:23 97.6 F 85 16 133/92 95 03/13/25 01:36 114 H 16 03/12/25 23:58 99.1 F 114 H 16 136/91 92 L 03/12/25 20:15 95 03/12/25 20:05 100 03/12/25 20:00 98.4 F 122 H 16 128/83 99 03/12/25 16:12 98 03/12/25 16:00 98.9 F 106 H 16 142/71 95 03/12/25 15:58 101 H 03/12/25 14:00 118 H 16 03/12/25 12:23 104 H 03/12/25 12:14 102 H 89 L Intake and Output 03/12/25 03/13/25 03/13/25 22:59 06:59 14:59 Intake Total 250 10 360 Output Total 1800 550 Balance -1550 -540 360 Intake: IV 10 10 Invasive Line 2 10 10 Oral 240 360 Output: Urine 1800 550 Other: Voiding Method Toilet Toilet # Voids 2 Weight 69.5 kg Results 03/12/25 05:35 03/12/25 05:35 Current Medications Generic Name Dose Route Start Last Admin Trade Name Freq PRN Reason Stop Dose Admin Acetaminophen 650 mg 03/11/25 14:41 Acetaminophen Tab 325 Mg Tab PO Q4HR PRN Mild to Moderate Pain (1 - 6) Albuterol/Ipratropium 3 ml 03/11/25 14:41 Ipratropium-Albuterol 3 Ml Neb IH RT-Q1H PRN Shortness Of Breath Or Wheezing Albuterol/Ipratropium 3 ml 03/11/25 14:41 03/13/25 11:26 Ipratropium-Albuterol 3 Ml Neb IH Not Given RT-QID ADDIE Apixaban 5 mg 03/12/25 09:00 03/13/25 08:17 Apixaban 5 Mg Tab PO 5 mg BID ADDIE Administration Protocol Atorvastatin Calcium 20 mg 03/11/25 21:00 03/12/25 20:17 Atorvastatin 20 Mg Tab PO 20 mg HS ADDIE Administration Bisacodyl 10 mg 03/11/25 14:41 Bisacodyl 10 Mg Supp RECTAL DAILY PRN Constipation Budesonide/Formoterol Fumarate 2 puff 03/11/25 20:00 03/13/25 08:01 Symbicort 160-4.5 Mcg Inhaler INHALATION 2 puff RT-BID ADDIE Administration Furosemide 40 mg 03/12/25 09:00 03/13/25 08:17 Furosemide 40 Mg Tab PO 40 mg DAILY ADDIE Administration Ketorolac Tromethamine 15 mg 03/11/25 14:41 03/13/25 05:22 Ketorolac 15 Mg/Ml 1 Ml Vial IVP 03/14/25 14:40 15 mg Q6HR ADDIE Administration Losartan Potassium 12.5 mg 03/11/25 21:00 03/12/25 20:17 Losartan 25 Mg Tab PO 12.5 mg HS ADDIE Administration Meclizine HCl 12.5 mg 03/11/25 14:41 Meclizine 12.5 Mg Tab PO TID PRN Vertigo Melatonin 3 mg 03/12/25 21:00 03/12/25 20:16 Melatonin 3 Mg Tablet PO 3 mg HS ADDIE Administration Metoprolol Succinate 100 mg 03/12/25 09:00 03/13/25 08:17 Metoprolol Succinate (Er) 100 Mg Tab.Er.24h PO 100 mg DAILY ADDIE Administration Montelukast Sodium 10 mg 03/11/25 14:41 Montelukast 10 Mg Tab PO HS PRN Allergy Symptoms Ondansetron HCl 4 mg 03/11/25 14:41 03/12/25 04:59 Ondansetron 4 Mg/2 Ml Vial IVP 4 mg Q8HR PRN Administration Nausea And Vomiting Pantoprazole Sodium 40 mg 03/12/25 07:30 03/13/25 06:03 Pantoprazole 40 Mg Tablet PO 40 mg [id number] ADDIE Administration Senna/Docusate Sodium 2 each 03/11/25 21:00 03/12/25 20:17 Sennosides-Docusate Sodium 1 Each Tab PO 2 each HS ADDIE Administration Sodium Chloride 10 ml 03/12/25 06:00 03/13/25 08:18 Sodium Chloride 0.9% Flush 10 Ml Syringe IV 10 ml BID ADDIE Administration Spironolactone 25 mg 03/12/25 09:00 03/13/25 08:17 Spironolactone 25 Mg Tab PO 25 mg DAILY ADDIE Administration Tramadol HCl 50 mg 03/11/25 14:41 03/12/25 15:40 Tramadol 50 Mg Tab PO 50 mg QID PRN Administration Severe Pain (Scale 7 to 10) Intake and Output 03/12/25 03/13/25 03/13/25 22:59 06:59 14:59 Intake Total 250 10 360 Output Total 1800 550 Balance -1550 -540 360 Intake: IV 10 10 Invasive Line 2 10 10 Oral 240 360 Output: Urine 1800 550 Other: Voiding Method Toilet Toilet # Voids 2 Weight 69.5 kg 03/12/25 05:35 03/12/25 05:35
--- NOTE | 2025-03-13 13:34 | XR ---
EXAMINATION TYPE: XR chest 1V portable DATE OF EXAM: 03/13/2025 1:29 PM COMPARISON: Multiple radiographs, with the most recent on 03/13/2025 TECHNIQUE: XR chest 1V portable Portable AP radiograph of the chest. CLINICAL INDICATION:Female, 64 years old with history of Evaluate for pneumothorax; shortness of loreta th FINDINGS: Lungs/Pleura: Right perihilar mass remains present with surrounding right basilar opacities. Addition al left basilar patchy consolidative opacities. Small bilateral pleural effusions. No discrete pneumo thorax. Diffuse interstitial prominence. Heart/mediastinum: Cardiomediastinal silhouette is enlarged. Musculoskeletal: No acute osseous pathology. Other findings: None Lines/Tubes: Left-sided Thora vent is in stable position. IMPRESSION: 1. Left thoracotomy device redemonstrated without discrete pneumothorax. 2. Right perihilar mass redemonstrated with bibasilar consolidative opacities redemonstrated. Diffus e interstitial prominence with small bilateral pleural effusions. [facility], , 03/13/2025 1:32 PM
[2025-03-13] MEDS: METOPROLOL SUCCINATE (ER) 50 MG TAB.ER.24H PO SCH (20:12)
[2025-03-14 06:32] LABS: HCT 35.2 % (37.2-46.3); HGB 11.6 g/dL (12.0-15.0); MCH 32.0 pg (27.0-32.0); MCHC 33.0 g/dL (32.0-37.0); MCV 97.0 fL (80.0-97.0); Platelet Count 202 10*3/uL (140-440); RBC 3.63 10*6/uL (4.10-5.20); RDW 13.9 % (11.5-14.5); WBC 5.21 10*3/uL (4.50-10.00)
[2025-03-14 06:54] LABS: ALT 8 U/L (4-34); AST 16 U/L (14-36); African American GFR (CKD) >90 (>60 ml/min/1.73 sqM); Albumin 3.3 g/dL (3.5-5.0); Alkaline Phosphatase 87 U/L (38-126); Anion Gap 7 mmol/L; Blood Urea Nitrogen 19 mg/dL (7-17); Calcium 8.7 mg/dL (8.4-10.2); Carbon Dioxide 32 mmol/L (22-30); Chloride 94 mmol/L (98-107); Glucose 90 mg/dL (74-99); Magnesium 2.1 mg/dL (1.6-2.3); Non-African American GFR(CKD) 78 (>60 ml/min/1.73 sqM); Potassium 4.1 mmol/L (3.5-5.1); Sodium 133 mmol/L (137-145); Total Protein 5.8 g/dL (6.3-8.2)
--- NOTE | 2025-03-14 07:21 | XR ---
EXAMINATION TYPE: XR chest 2V DATE OF EXAM: 03/14/2025 7:17 AM COMPARISON: Multiple radiographs, with the most recent on 03/13/2025, PET/CT 01/15/2025 TECHNIQUE: XR chest 2V Frontal and lateral views of the chest. CLINICAL INDICATION:Female, 64 years old with history of Status post left Thoravent placement; FINDINGS: Lungs/Pleura: Right perihilar mass redemonstrated with surrounding right basilar opacities. Additiona l left basilar patchy consolidative opacities. Trace bilateral pleural effusions. No discrete pneumot horax. Diffuse interstitial prominence. Heart/mediastinum: Cardiomediastinal silhouette is enlarged. Musculoskeletal: No acute osseous pathology. Other findings: None Lines/Tubes: Left-sided Thora vent is in stable position. IMPRESSION: 1. Left thoracotomy device redemonstrated without discrete pneumothorax. 2. Right perihilar mass redemonstrated with bibasilar consolidative opacities redemonstrated. Diffus e interstitial prominence with trace bilateral pleural effusions. [facility], , 03/14/2025 7:19 AM
--- NOTE | 2025-03-14 10:10 | P.PN ---
Subjective Progress Note Date: 03/14/25 Principal diagnosis: Right upper hilar and left lower medial PET positive lung nodules. Past medical history paroxysmal atrial fibrillation on Eliquis as an outpatient, moderate to severe mitral valve regurgitation, hypertension, hyperlipidemia, chronic obstructive pulmonary disease, heart failure with reduced ejection fraction, ejection fraction of 30%, previous tobacco abuse, quit smoking in December 2024. POD #3 left thoracoscopy with single level intercostal nerve block and biopsy of left lower lobe nodule. Status post day #2 placement of left Thoravent by Dr. Carla Nina, for left pneumothorax status post VATS lung biopsy and chest tube removal, unexpected The patient was seen and examined in follow-up today March 14, 2025 at her bedside on the third floor cardiac stepdown unit. Patient is awake, alert, oriented x 3 and is in no acute apparent distress. Remote telemetry is showing atrial fibrillation with better rate control today heart rate 81 bpm. She was s een and evaluated by cardiology yesterday and was started on metoprolol succinate 50 mg p.o. nightly. Oxygen saturations are 97% on room air and she is achieving 1500 mL on her incentive spirometry with encouragement. She reports she has been up ambulating in the hallway and tolerating well. Chest x-ray was completed this morning and shows no evidence of left pneumothorax. Her Thora vent remains in place and is currently plugged. Laboratory and chest x-ray results reviewed. Objective - Vital Signs Vital signs: Vital Signs Temp 98 F 03/14/25 08:25 Pulse 76 03/14/25 08:41 Resp 18 03/14/25 08:25 BP 111/64 03/14/25 08:25 Pulse Ox 96 03/14/25 08:37 FiO2 Intake & Output 03/13/25 03/14/25 03/14/25 18:59 06:59 18:59 Intake Total 1160 20 490 Output Total 250 Balance 1160 -230 490 Weight 67.9 kg Intake: IV 20 10 Invasive Line 2 20 10 Oral 1160 480 Output: Urine 250 Other: Voiding Method Toilet Toilet # Voids 1 # Bowel Movements 1 - Exam CONSTITUTIONAL: Appears comfortable, cooperative, no acute distress RESPIRATORY: Lungs sounds diminished bilaterally. Respirations symmetrical, nonlabored. Currently on room air with oxygen saturation 97%. Able to achieve 1500 mL on her incentive spirometry. Strong cough. CARDIOVASCULAR: S1, S2 present. Irregular rate and rhythm, atrial fibrillation on telemetry with heart rate of 81 bpm. Palpable peripheral pulses bilaterally. No edema present. No calf pain or tenderness noted. SCDs present. GASTROINTESTINAL: Abdomen soft, nontender, nondistended. Active bowel sounds present 4 quadrants. Tolerating diet. GENITOURINARY: Continues to void clear, yellow urine. INTEGUMENTARY: Skin is warm and dry with evidence of good perfusion. Left chest thoracic incisions well approximated and covered with dry intact dressing. NEUROLOGIC: Cranial nerves II through XII intact. No focal deficit. MUSKULOSKELETAL: Able to move all extremities, strength equal bilaterally, gait normal. PSYCHIATRIC: Alert and oriented to person place and time, appropriate affect, intact judgment and insight. INVASIVE LINES AND TUBES: Left left Thoravent chest tube in place, and is currently plugged. - Allied health notes Allied health notes reviewed: nursing - Labs CBC & Chem 7: 03/14/25 05:29 03/14/25 05:29 Labs: Abnormal Lab Results - Last 24 Hours (Table) 03/14/25 03/14/25 Range/Units 05:29 05:29 RBC 3.63 L (4.10-5.20) 10*6/uL Hgb 11.6 L (12.0-15.0) g/dL Hct 35.2 L (37.2-46.3) % Sodium 133 L (137-145) mmol/L Chloride 94 L (98-107) mmol/L Carbon Dioxide 32 H (22-30) mmol/L BUN 19 H (7-17) mg/dL Total Protein 5.8 L (6.3-8.2) g/dL Albumin 3.3 L (3.5-5.0) g/dL - Imaging and Cardiology Chest x-ray: report reviewed, image reviewed Assessment and Plan Assessment: Right upper hilar and left lower medial PET positive lung nodules, status post left thoracoscopy with biopsy of left lower lobe nodule, frozen section pathology consistent with nonsmall cell lung cancer Left pneumothorax status post VATS lung biopsy and chest tube removal, status post insertion of 11 Turkish Thoravent History of paroxysmal atrial fibrillation on [facility] outpatient Moderate to severe mitral valve regurgitation Hypertension Hyperlipidemia Chronic obstructive pulmonary disease Heart failure with reduced ejection fraction, EF 30% Previous tobacco abuse, quit smoking in December 2024 Plan: Keep left Thoravent chest tube in place and plugged. Continue to monitor daily chest x-rays for pneumothorax resolution. If chest x-ray demonstrates no pneumothorax tomorrow morning, we will likely remove the Thoravent chest tube and discharge the patient home. Encouraged use of incentive spirometry 10 times every hour while awake. Continue to monitor daily chest x-rays. Out of bed for all meals. Encourage ambulation. Continue pain medication regimen as ordered. Surgical pathology results remain pending. Cardiology consult noted and appreciated More recommendations to follow based on patient's clinical course. Time with Patient: Greater than 30
--- NOTE | 2025-03-14 11:54 | P.PN ---
Subjective HISTORY OF PRESENT ILLNESS: This is a 64-year-old female with a past medical history significant for recently diagnosed atrial fibrillation, cardiomyopathy, hypertension, hyperlipidemia, lung mass with suspected cancer. Patient follows in the office with Dr. Carroll. We have been asked to see the patient in consultation for atrial fibrillation. Patient examined at the bedside. Patient is admitted to the hospital secondary to lung mass. She underwent VATS procedure with biopsy. Patient was found to have left pneumothorax after VATS procedure and had Thora vent placed. Patient currently denies any chest pain or pressure. She denies any shortness of breath at the time of examination. She remains in atrial fibrillation with a heart rate between [id number]. DIAGNOSTICS: - EKG not available at the time of this dictation - Chest xray left thoracotomy device now in place with unchanged trace left apical pneumothorax. Right perihilar mass redemonstrated with bibasilar consolidative opacities. - Laboratory data: WBC 8.61. Hemoglobin 12.3. Platelet count 237. Sodium 134. Potassium 4.6. BUN 22. Creatinine 0.97. - Current home cardiac medications include Aldactone 25 mg daily, metoprolol succinate 100 mg daily, losartan 12.5 mg at night, Lasix 40 mg daily, Lipitor 20 mg at night, Eliquis 5 mg twice a day. - Most recent echocardiogram obtained in December 2024 revealed ejection fraction 30%, moderate to severe MR, global decrease in contractility - Patient underwent nuclear stress testing in January 2025 with no evidence of acute ischemia. EF 40% - Cardiac catheterization history: Patient denies 03/14/2025 Patient examined this morning at the bedside. Patient currently denies chest pain or pressure. She denies shortness of breath. Left Thora vent remains in place. Telemetry reveals atrial fibrillation with controlled ventricular rate. PHYSICAL EXAM: VITAL SIGNS: Reviewed. GENERAL: Well-developed in no acute distress. HEENT: Head is normocephalic. Pupils are equal, round. Sclerae anicteric. Mucous membranes of the mouth are moist. Neck supple. No JVD or thyromegaly LUNGS: Respirations even and unlabored. Lungs essentially clear to auscultation bilaterally. Left Thora vent noted. HEART: Irregular rate and rhythm. S1 and S2 heard. ABDOMEN: Soft. Nondistended. Nontender. EXTREMITIES: Normal range of motion. No clubbing or cyanosis. Peripheral pulses intact. No lower extremity edema NEUROLOGIC: Awake and alert. Oriented x 3. ASSESSMENT: Right upper hilar and left lower medial lung nodules, status post VATS with biopsy Left pneumothorax, status post Thora vent Persistent atrial fibrillation, recently diagnosed in December Cardiomyopathy, 30%, suspected to be nonischemic Hypertension Hyperlipidemia Former nicotine dependence PLAN: No need to repeat echocardiogram as this was performed in December 2024 Continue anticoagulation with Eliquis Continue metoprolol succinate 100 mg in the morning and 50 mg in the evening Continue telemetry monitoring Patient is stable for discharge home today from a cardiac standpoint. She is to follow-up in the office with Dr. Carroll Further recommendations pending patient course Nurse practitioner note has been reviewed by physician. Signing provider agrees with the documented findings, assessment, and plan of care documented by INFUSION THERAPY NURSE as a scribe. Objective - Vital Signs Vital signs: Vital Signs Temp 98 F 03/14/25 08:25 Pulse 80 03/14/25 11:35 Resp 18 03/14/25 08:25 BP 111/64 03/14/25 08:25 Pulse Ox 96 03/14/25 08:37 FiO2 Intake & Output 03/13/25 03/14/25 03/14/25 18:59 06:59 18:59 Intake Total 1160 20 490 Output Total 250 Balance 1160 -230 490 Weight 67.9 kg Intake: IV 20 10 Invasive Line 2 20 10 Oral 1160 480 Output: Urine 250 Other: Voiding Method Toilet Toilet # Voids 1 # Bowel Movements 1 - Labs CBC & Chem 7: 03/14/25 05:29 03/14/25 05:29 Labs: Abnormal Lab Results - Last 24 Hours (Table) 03/14/25 03/14/25 Range/Units 05:29 05:29 RBC 3.63 L (4.10-5.20) 10*6/uL Hgb 11.6 L (12.0-15.0) g/dL Hct 35.2 L (37.2-46.3) % Sodium 133 L (137-145) mmol/L Chloride 94 L (98-107) mmol/L Carbon Dioxide 32 H (22-30) mmol/L BUN 19 H (7-17) mg/dL Total Protein 5.8 L (6.3-8.2) g/dL Albumin 3.3 L (3.5-5.0) g/dL
--- NOTE | 2025-03-15 07:25 | XR ---
EXAMINATION TYPE: XR chest 1V portable DATE OF EXAM: 03/15/2025 6:43 AM COMPARISON: 03/14/2025 CLINICAL INDICATION: Female, 64 years old with history of s/p left lower lobe wedge resection, , FINDINGS: Left-sided pleural catheter in place. There is a trace left apical pneumothorax measuring 6 mm, not w ell seen previously. Heart remains moderately enlarged. Masslike right hilar prominence unchanged. Mi ld patchy opacity periphery of the right midlung and at the peripheral right base has developed. Inte rstitial changes have worsened. IMPRESSION: 1. Left-sided pleural catheter in place with trace 6 mm left apical pneumothorax now seen. 2. COPD and moderate cardiomegaly. Increasing interstitial changes could reflect developing CHF, mild interstitial pulmonary edema. 3. More focal patchy developing airspace opacity at the right mid and lower lung. 4. Masslike opacity at the right hilum is unchanged. [facility], , 03/15/2025 7:22 AM
[2025-03-15 09:33] VITALS: RESP 17; TEMP 98.4
--- NOTE | 2025-03-15 09:43 | XR ---
EXAMINATION TYPE: XR chest 1V portable DATE OF EXAM: 03/15/2025 9:28 AM COMPARISON: 03/15/2025 CLINICAL INDICATION: Female, 64 years old with history of post chest tube removal, , FINDINGS: Heart remains mild to moderately enlarged. Hyperinflation. Similar diffuse interstitial density. Some scattered Андрей B lines are noted. Interval removal left chest tube. Trace 5 mm left apical pneumot horax remains. Possible trace pleural effusions. Patchy peripheral right basilar opacity remains. Mas slike opacity right hilum remains. IMPRESSION: 1. Removal of left-sided chest tube with residual trace 5 mm left apical pneumothorax which is simila r. 2. Cardiomegaly and COPD. Similar superimposed interstitial changes, probably pulmonary vascular christy estion. 3. There may be trace pleural effusions. Similar patchy opacity periphery of the right base. 4. Masslike opacity at the right hilum is unchanged. [facility], Workstation: [facility], 03/15/2025 9:40 AM
--- NOTE | 2025-03-15 09:59 | P.PN ---
Subjective HISTORY OF PRESENT ILLNESS: This is a 64-year-old female with a past medical history significant for recently diagnosed atrial fibrillation, cardiomyopathy, hypertension, hyperlipidemia, lung mass with suspected cancer. Patient follows in the office with Dr. Carroll. We have been asked to see the patient in consultation for atrial fibrillation. Patient examined at the bedside. Patient is admitted to the hospital secondary to lung mass. She underwent VATS procedure with biopsy. Patient was found to have left pneumothorax after VATS procedure and had Thora vent placed. Patient currently denies any chest pain or pressure. She denies any shortness of breath at the time of examination. She remains in atrial fibrillation with a heart rate between [id number]. DIAGNOSTICS: - EKG not available at the time of this dictation - Chest xray left thoracotomy device now in place with unchanged trace left apical pneumothorax. Right perihilar mass redemonstrated with bibasilar consolidative opacities. - Laboratory data: WBC 8.61. Hemoglobin 12.3. Platelet count 237. Sodium 134. Potassium 4.6. BUN 22. Creatinine 0.97. - Current home cardiac medications include Aldactone 25 mg daily, metoprolol succinate 100 mg daily, losartan 12.5 mg at night, Lasix 40 mg daily, Lipitor 20 mg at night, Eliquis 5 mg twice a day. - Most recent echocardiogram obtained in December 2024 revealed ejection fraction 30%, moderate to severe MR, global decrease in contractility - Patient underwent nuclear stress testing in January 2025 with no evidence of acute ischemia. EF 40% - Cardiac catheterization history: Patient denies 03/14/2025 Patient examined this morning at the bedside. Patient currently denies chest pain or pressure. She denies shortness of breath. Left Thora vent remains in place. Telemetry reveals atrial fibrillation with controlled ventricular rate. 03/15 Patient seen and examined. Patient denies any chest pain or pressure. No signi ficant shortness of breath. Has had intermittent episodes of tachycardia with pain or if she is coughing however predominantly heart rates more in the 90s. Her metoprolol had been increased from 100 mg daily to 100 mg in the morning and 50 mg at night. PHYSICAL EXAM: VITAL SIGNS: Reviewed. GENERAL: Well-developed in no acute distress. HEENT: Head is normocephalic. Pupils are equal, round. Sclerae anicteric. Mucous membranes of the mouth are moist. Neck supple. No JVD or thyromegaly LUNGS: Respirations even and unlabored. Lungs essentially clear to auscultation bilaterally. Left Thora vent noted. HEART: Irregular rate and rhythm. S1 and S2 heard. ABDOMEN: Soft. Nondistended. Nontender. EXTREMITIES: Normal range of motion. No clubbing or cyanosis. Peripheral pulses intact. No lower extremity edema NEUROLOGIC: Awake and alert. Oriented x 3. ASSESSMENT: Right upper hilar and left lower medial lung nodules, status post VATS with biopsy Left pneumothorax, status post Thora vent Persistent atrial fibrillation, recently diagnosed in December Cardiomyopathy, 30%, suspected to be nonischemic Hypertension Hyperlipidemia Former nicotine dependence PLAN: No need to repeat echocardiogram as this was performed in December 2024 Continue anticoagulation with Eliquis Continue metoprolol succinate 100 mg in the morning and 50 mg in the evening Patient stable for discharge home from a cardiology standpoint. Objective - Vital Signs Vital signs: Vital Signs Temp 98.4 F 03/15/25 08:25 Pulse 96 03/15/25 09:39 Resp 17 03/15/25 08:25 BP 126/80 03/15/25 08:25 Pulse Ox 94 L 03/15/25 09:27 FiO2 Intake & Output 03/14/25 03/15/25 03/15/25 18:59 06:59 18:59 Intake Total 490 480 Output Total 400 Balance 490 -400 480 Weight 69.5 kg Intake: IV 10 Invasive Line 2 10 Oral 480 480 Output: Urine 400 Other: Voiding Method Toilet Toilet Toilet # Voids 4 - Labs CBC & Chem 7: 03/14/25 05:29 03/14/25 05:29
[2025-03-15 12:04] VITALS: BP 123/79; PULSE 78
== END 2025-03-15 12:12 | disposition home or self-care (01) | DRG 167 ==
LOC: 2ORMAIN 07:58 → 3SCARD 13:02
PROVIDERS: ADMIT Thoracic Surgery (Cardiothoracic Vascular Surgery); ATTEND Thoracic Surgery (Cardiothoracic Vascular Surgery)
PROC: 0W9B40Z Drainage of Left Pleural Cavity with Drainage Device, Percutaneous Endoscopic Approach (ICD-10-PCS; 2025-03-11)
PROC: 3E0T3BZ Introduction of Anesthetic Agent into Peripheral Nerves and Plexi, Percutaneous Approach (ICD-10-PCS; 2025-03-11)
PROC: 0BBJ4ZX Excision of Left Lower Lung Lobe, Percutaneous Endoscopic Approach, Diagnostic (ICD-10-PCS; principal; 2025-03-11 10:00)
PROC: 0BPQ30Z Removal of Drainage Device from Pleura, Percutaneous Approach (ICD-10-PCS; 2025-03-13)
PROC: 0B9P30Z Drainage of Left Pleura with Drainage Device, Percutaneous Approach (ICD-10-PCS; 2025-03-13)
DX: C34.90 Malignant neoplasm of unspecified part of unspecified bronchus or lung (principal); I42.8 Other cardiomyopathies; J93.9 Pneumothorax, unspecified; I11.0 Hypertensive heart disease with heart failure; J44.9 Chronic obstructive pulmonary disease, unspecified; I50.22 Chronic systolic (congestive) heart failure; I48.0 Paroxysmal atrial fibrillation; R91.8 Other nonspecific abnormal finding of lung field; E78.5 Hyperlipidemia, unspecified; Z87.891 Personal history of nicotine dependence; Z79.01 Long term (current) use of anticoagulants; Z79.51 Long term (current) use of inhaled steroids; Z79.899 Other long term (current) drug therapy; Z85.118 Personal history of other malignant neoplasm of bronchus and lung; Z88.1 Allergy status to other antibiotic agents
CPT/HCPCS: 64466; 71045; 71046; 80048; 80053; 83735; 84443; 85025; 85027; 88307; 88313; 88331; 88341; 88342; 94640; 94760

== ENCOUNTER → 2025-03-17 | Outpatient (CLI) | payer BC ==
--- NOTE | 2025-03-17 11:15 | XR ---
EXAMINATION TYPE: XR chest 2V DATE OF EXAM: 03/17/2025 9:09 AM COMPARISON: 03/15/2025 CLINICAL INDICATION: Female, 64 years old with history of Z48.812 post op follow up, thoracoscopy and left lower lobe biopsy, TECHNIQUE: Frontal and lateral views FINDINGS: Heart mildly enlarged. Hyperinflation. Mild interstitial prominence which shows improvement from prio r. Bilateral nipple shadows. Right hilar mass redemonstrated. No pleural effusion. IMPRESSION: 1. Mild cardiomegaly and COPD. No appreciable pneumothorax. 2. Known right hilar mass. [facility], Workstation: [facility], 03/17/2025 11:13 AM
== END | disposition home or self-care (01) ==
LOC: RADXRMAIN 08:47
PROVIDERS: ATTEND Thoracic Surgery (Cardiothoracic Vascular Surgery)
DX: J44.9 Chronic obstructive pulmonary disease, unspecified (principal); I51.7 Cardiomegaly; Z48.813 Encounter for surgical aftercare following surgery on the respiratory system
CPT/HCPCS: 71046